=== PATIENT | male | born 1940 | race Two or more races ===

== ENCOUNTER → 2024-11-05 | Outpatient (CLI) | payer BC ==
[2024-11-05 07:58] LABS: Urine Bacteria None Seen /hpf (None Seen)
[2024-11-05 08:02] LABS: Hematocrit 42.6 % (41.0-53.0); Hemoglobin 14.4 g/dL (13.5-17.5); Mean Corpuscular Hgb Conc. 33.8 g/dL (32.0-36.0); Mean Corpuscular Volume 91.7 fL (80.0-100.0); Platelet Count (auto) 129 10^3/uL (140-450); Red Blood Cells 4.65 10^6/uL (4.5-5.90); Red Cell Distribution Width 15.3 % (11.8-14.3)
[2024-11-05 08:12] LABS: Basophils % (manual) 0 (0.0-2.0); Blast Cells 0; Metamyelocytes % 0; Promyelocytes % 0; Reactive Lymphocytes 0
[2024-11-05 08:31] LABS: Urine Blood Negative /uL (Negative); Urine Clarity Clear (Clear); Urine Color Light-Yellow (Yellow); Urine Protein, UAD Negative (Negative); Urine Squamous Epithelial Cell None Seen /hpf (<5); Urine Urobilinogen Normal (Negative); Urine WBC < 1 /HPF (0-3)
[2024-11-05 08:49] LABS: Alanine Aminotransferase 36 U/L (7-40); Alkaline Phosphatase 79 U/L (46-116); Anion Gap 6 (5-15); BUN/Creatinine Ratio 25.3 (10.0-20.0); Blood Urea Nitrogen 22 mg/dL (9-23); Carbon Dioxide 26 mmol/L (20-31); Chloride 104 mmol/L (98-107); Potassium 4.7 mmol/L (3.5-5.1); Sodium 136 mmol/L (136-145)
[2024-11-05 08:50] LABS: Albumin 4.4 g/dL (3.2-4.8); Aspartate Aminotransferase 27 U/L (13-40); Bilirubin, Total 0.5 mg/dL (0.2-1.0); Total Protein 6.6 g/dL (5.7-8.2)
[2024-11-05 08:59] LABS: Glucose 152 mg/dL (74-106)
[2024-11-05 11:22] LABS: Band Neutrophils % (manual) 3; Eosinophils % (manual) 5 (0-7); Lymphocytes % (manual) 9 (10.0-50.0); Monocytes % (manual) 2 (0-12); Myelocytes % 1; Platelet Estimate Adequate
[2024-11-06 12:54] LABS: Triglycerides 136 mg/dL (< 150)
[2024-11-06 12:55] LABS: Cholesterol 106 mg/dL (< 200); LDL Cholesterol 58 mg/dL (< 100)
[2024-11-06 12:57] LABS: HDL Cholesterol 29 mg/dL (40-59)
[2024-11-06 13:04] LABS: Creatinine, Urine 42.45 mg/dL (30.0-125.0)
== END | disposition home or self-care (01) ==
LOC: LAB 07:45
PROVIDERS: ATTEND Internal Medicine
DX: E11.9 Type 2 diabetes mellitus without complications (principal); E78.5 Hyperlipidemia, unspecified; E03.9 Hypothyroidism, unspecified
CPT/HCPCS: 36415; 80053; 80061; 81001; 82043; 82570; 83036; 84443; 85007; 85027

== ENCOUNTER 2024-11-28 18:32 | Inpatient (IN) | payer BC ==
[~2024-11-28] VITALS: Ht 182.9 cm; Wt 55.9 kg
--- NOTE | 2024-11-28 18:50 | ED.PDOC ---
HPI (NEURO) HPI Comments 84y M who presents to the ED via EMS for chief complaint of generalized weakness. Per EMS, pt lives with spouse who states pt has been acting not like himself all day. Pt has memory lapses and has been forgetting to set the time to kitchen stove today and states last time patient started to act this way, pt had infection and called EMS. EMS on scene noted, pt had temp of 100.3F with noted 02 sat of 92 % and noted tachycardia. Pt was given IV fluids and placed on 02 and brought to the ED. EMS states pt is ax0x3 and not oriented to year but otherwise able to answer all questions. Pt states in the ED, he feel nauseous with noted shortness of breath but otherwise denies vomiting, diarrhea, fever, cough, chills, dysuria, chest pain or shortness of breath. Pt otherwise denies any other symptoms at this time. Time Seen by MD: 18:46 Reviewed Notes: Nurses Notes, Pouncer Notes, Medications, Allergies (No allergies to medications) Information Source: Patient, Emergency Med Personnel Mode of Arrival: EMS Brought in by: EMS Severity: Moderate Dizziness/Weakness Severity: Does not affect activitie Headache Severity: Moderate, None Timing: Hours Duration: Since onset Prehospital treatment: IVF, Oxygen Onset: At rest Circumstances: Spontaneous Symptoms: Weakness, None History of: CVA, DM, Hypertension Modifying factors: Nothing Associated Signs and Symptoms: Nausea, Weakness Past Medical History PAST MEDICAL HISTORY: Asthma, CVA, DM, HTN Surgical History: Cholecystectomy, Hernia Repair Family History Family History: Reviewed,noncontributory to illness Social History Smoker: Non-Smoker Alcohol: Denies ETOH Use Drugs: Denies Drug Use Lives In: Home Constitutional: denies: chills, diaphoresis, fatigue, fever, malaise, sweats, weakness, others EENTM: denies: blurred vision, double vision, ear bleeding, ear discharge, ear drainage, ear pain, ear ringing, eye pain, eye redness, hearing loss, mouth pain, mouth swelling, nasal discharge, nose bleeding, nose congestion, nose pain, photophobia, tearing, throat pain, throat swelling, voice changes, others Respiratory: denies: cough, hemoptysis, orthopnea, SOB at rest, shortness of b reath, SOB with excertion, stridor, wheezing, others Cardiovascular: denies: chest pain, dizzy spells, diaphoresis, Dyspnea on exertion, edema, irregular heart beat, left arm pain, lightheadedness, palpitations, PND, syncope, others Gastrointestinal: reports: nausea; denies: abdomen distended, abdominal pain, blood streaked bowels, constipated, diarrhea, dysphagia, difficulty swallowing, hematemesis, melena, poor appetite, poor fluid intake, rectal bleeding, rectal pain, vomiting, others Genitourinary: denies: burning, dysuria, flank pain, frequency, hematuria, incontinence, penile discharge, penile sore, pain, testicle pain, testicle swelling, urgency, others Neurological: reports: weakness; denies: dizziness, fainting, headache, left sided numbness, left sided weakness, numbness, paresthesia, pre-existing deficit, right sided numbness, right sided weakness, seizure, speech problems, tingling, tremors, others Musculoskeletal: denies: back pain, gout, joint pain, joint swelling, muscle pain, muscle stiffness, neck pain, others Integumetry: denies: bruises, change in color, change in hair/nails, dryness, laceration, lesions, lumps, rash, wounds, others Allergic/Immunocompromised: denies: Difficulty Healing, Frequent Infections, Hives, Itching, others Hematologic/Lymphatic: denies: anemia, blood clots, easy bleeding, easy bruising, swollen glands, others Endocrine: denies: excessive hunger, excessive sweating, excessive thirst, excessive urination, flushing, intolerance to cold, intolerance to heat, unexplained weight gain, unexplained weight loss, others Psychiatric: denies: anxiety, bipolar disorder, depression, hopeless, panic di sorder, schizophrenia, sleepless, suicidal, others All Other Systems: Reviewed and Negative Physical Exam General Appearance: Moderate Distress HEENT: Normal ENT Inspection, Pharynx Normal, TMs Normal Neck: Full Range of Motion, Non-Tender, Normal, Normal Inspection Respiratory: Chest Non-Tender, Lungs Clear, No Accessory Muscle Use, No Respiratory Distress, Normal Breath Sounds Cardiovascular: No Edema, No JVD, No Murmur, No Gallop, Normal Peripheral Pulses, Regular Rate/Rhythm Breast Exam: Deferred Gastrointestinal: No Organomegaly, Non Tender, No Pulsatile Mass, Normal Bowel Sounds, Soft Genitalia: Deferred Pelvic: Deferred Rectal: Deferred Extremities: No calf tenderness, Normal capillary refill, Normal inspection, Normal range of motion, Non-tender, No pedal edema Musculoskeletal : Apperance: Normal Neurologic: development technical lead II-XII nml as Tested, Motor Weakness, No Sensory Deficits, Other (The patient was confused) Cerebellar Function: Normal Reflexes: Normal Skin: Dry, Normal Color, Warm Lymphatic: No Adenopathy EKG EKG : Pulse Rate (adult): 98 [place]: Normal Cardiac Rhythm: NSR Block: LBBB Hypertrophy: None ST: Normal Was a procedure done? Was a procedure done?: No Differential Diagnosis (SZ) Seizure: N/A General Weakness: Anemia, CVA, Dehydration, Electrolyte imbalance, Encephalopathy, Hypotension, Hypovolemia, TIA, Other (PNA, sepsis, UTI, ) X-Ray, Labs, Meds, VS Vital Signs Date Time Temp Pulse Resp B/P (MAP) Pulse Ox O2 Delivery O2 Flow Rate FiO2 11/28/24 19:05 98 11/28/24 19:03 98 11/28/24 18:40 100.3 92 20 120/58 (78) 98 Lab Test 11/28/24 20:30 11/28/24 18:40 Range/Units Urine Color Yellow Yellow Urine Clarity Clear Clear Urine pH 5.0 5.0-9.0 Urine Specific [place] 1.022 1.001-1.035 Urine Protein 1+ H Negative Urine Ketones Trace Negative Urine Blood Negative Negative /uL Urine Nitrite Negative Negative Urine Bilirubin Negative Negative Urine Urobilinogen Normal Negative mg/dL Urine Leukocyte Esterase Negative Negative /uL Urine RBC 1 0 - 3 /hpf Urine Microscopic WBC 3 0-3 /HPF Urine Squamous Epithelial Cells None seen <5 /hpf Urine Bacteria None seen None Seen /hpf Urine Hyaline Casts Mod 0 - 2 /lpf Urine Glucose Normal Normal mg/dL White Blood Count 21.4 H 4.4-10.8 10^3/uL Red Blood Count 4.45 L 4.5-5.90 10^6/uL Hemoglobin 13.8 13.5-17.5 g/dL Hematocrit 41.3 41.0-53.0 % Mean Corpuscular Volume 92.9 80.0-100.0 fL Mean Corpuscular Hemoglobin 31.1 28.0-32.0 pg Mean Corpuscular Hemoglobin Concent 33.4 32.0-36.0 g/dL Red Cell Distribution Width 14.8 H 11.8-14.3 % Platelet Count 138 L 140-450 10^3/uL Mean Platelet Volume 7.8 6.9-10.8 fL Neutrophils (%) (Auto) 82.9 H 37.0-80.0 % Lymphocytes (%) (Auto) 7.7 L 10.0-50.0 % Monocytes (%) (Auto) 8.9 0.0-12.0 % Eosinophils (%) (Auto) 0.1 0.0-7.0 % Basophils (%) (Auto) 0.4 0.0-2.0 % Neutrophils # (Auto) 17.8 H 1.6-8.6 10 ^3/uL Lymphocytes # (Auto) 1.7 0.4-5.4 10 ^3/uL Monocytes # (Auto) 1.9 H 0-1.3 10 ^3/uL Eosinophils # (Auto) 0 0-0.8 10 ^3/uL Basophils # (Auto) 0.1 0-0.2 10 ^3/uL Nucleated Red Blood Cells 0.1 % Sodium Level 134 L 136-145 mmol/L Potassium Level 4.2 3.5-5.1 mmol/L Chloride Level 100 98-107 mmol/L Carbon Dioxide Level 27 20-31 mmol/L Anion Gap 7 5-15 Blood Urea Nitrogen 32 H 9-23 mg/dL Creatinine 1.33 H 0.700-1.30 mg/dL Glomerular Filtration Rate Calc 52 >90 mL/min BUN/Creatinine Ratio 24.1 H 10.0-20.0 Serum Glucose 186 H 74-106 mg/dL Lactic Acid Level 1.7 0.4-2.0 mmol/L Calcium Level 9.5 8.7-10.4 mg/dL CHEST RADIOGRAPH IMPRESSION: Left basilar atelectasis . otherwise , no evidence for acute cardiopulmonary disease. The urine test is positive for mild infection. The patient's CBC shows an elevated white blood cell count of 21.4 The rest of the CBC is within normal limits The BUN is 32 and the creatinine is 1.33 The lactic acid is within normal limits The patient was being admitted to the hospitalist The patient understands and agrees with the management. Images Reviewed?: Images reviewed and evaluated by me Time of 1ST Reevaluation: 19:15 Reevaluation 1ST: Unchanged Patient Education/Counseling: Diagnosis, Treatment, Prognosis Family Education/Counseling: Diagnosis, Treatment, Prognosis Departure 1 Departure Time of Disposition: 21:03 Impression: Primary Impression: Autonomic dysfunction Additional Impressions: Fever Qualified Codes: R50.9 - Fever, unspecified Generalized weakness Confusion Disposition: ADMITTED INPATIENT Admit to: Tele Condition: Fair Critical Care Note Critical Care Time?: No Stability Stability form required: Yes Unstable for transfer: Telemetry monitoring (Telemetry monitoring required), ED Physician Assesment (Clinical assesment) Heart Score Heart Score: Heart Score Response (Comments) Value History N/A 0 EKG N/A 0 Age N/A 0 Risk Factors N/A 0 Troponin N/A 0 Total 0 I personally scribed for BAYRON ANDERSON MD (LAILA) on 11/28/24 at 18:50. Electronically submitted by Yaneth Hearn ([email or web address]). I personally scribed for BAYRON ANDERSON MD (LAILA) on 11/28/24 at 19:05. Electronically submitted by Yaneth Hearn ([email or web address]). I personally scribed for BAYRON ANDERSON MD (LAILA) on 11/28/24 at 19:50. Elec tronically submitted by Yaneth Hearn (HUSSEIN). BAYRON ANDERSON MD Nov 28, 2024 18:50
--- NOTE | 2024-11-28 19:09 | DVH ---
CHEST RADIOGRAPH Indication: sob Technique: Single frontal view of the chest was obtained Comparison: None FINDINGS: Lines and Tubes: None Lungs: No focal consolidation. Left basilar linear density. Pleura: No effusion. No pneumothorax. Cardiomediastinal contours: Unremarkable Bones: No acute osseous abnormality. IMPRESSION: Left basilar atelectasis . otherwise , no evidence for acute cardiopulmonary disease.
[2024-11-28 19:17] LABS: Basophils # (auto) 0.1 10 ^3/uL (0-0.2); Basophils % (auto) 0.4 % (0.0-2.0); Eosinophils # (auto) 0 10 ^3/uL (0-0.8); Eosinophils % (auto) 0.1 % (0.0-7.0); Hematocrit 41.3 % (41.0-53.0); Hemoglobin 13.8 g/dL (13.5-17.5); Lymphocytes # (auto) 1.7 10 ^3/uL (0.4-5.4); Lymphocytes % (auto) 7.7 % (10.0-50.0); Mean Corpuscular Hemoglobin 31.1 pg (28.0-32.0); Mean Corpuscular Hgb Conc. 33.4 g/dL (32.0-36.0); Mean Corpuscular Volume 92.9 fL (80.0-100.0); Monocytes # (auto) 1.9 10 ^3/uL (0-1.3); Monocytes % (auto) 8.9 % (0.0-12.0); Neutrophils # (auto) 17.8 10 ^3/uL (1.6-8.6); Neutrophils % (auto) 82.9 % (37.0-80.0); Nucleated Red Blood Cells % 0.1 %; Platelet Count (auto) 138 10^3/uL (140-450); Red Blood Cells 4.45 10^6/uL (4.5-5.90); Red Cell Distribution Width 14.8 % (11.8-14.3); White Blood Cell 21.4 10^3/uL (4.4-10.8)
[2024-11-28 19:26] LABS: Chloride 100 mmol/L (98-107); Potassium 4.2 mmol/L (3.5-5.1)
[2024-11-28 19:27] LABS: Anion Gap 7 (5-15); Carbon Dioxide 27 mmol/L (20-31)
[2024-11-28 19:28] LABS: Calcium 9.5 mg/dL (8.7-10.4)
[2024-11-28 19:33] LABS: BUN/Creatinine Ratio 24.1 (10.0-20.0)
[2024-11-28 19:42] LABS: Blood Urea Nitrogen 32 mg/dL (9-23); Glucose 186 mg/dL (74-106); Sodium 134 mmol/L (136-145)
--- NOTE | 2024-11-28 19:42 | ECG ---
[facility] Test Date: 2024-11-28 Test Time: 19:03:31 Pat Name: VIC SUAREZ Department: er Room: 0222 Gender: M Bench Scientist: shala : 1940 Requested By: BAYRON ANDERSON Order Number: [id number] Reading MD: Vasu Garner Measurements Intervals [place] Rate: 98 P: 35 NH: 194 QRS: -25 QRSD: 122 T: 74 QT: 340 QTc: 435 Interpretive Statements Sinus rhythm Left bundle branch block Electronically Signed On 11-30-2024 18:01:59 PST by Vasu Garner Please click the below link to view image of tracing.
[2024-11-28 20:44] LABS: Urine Bacteria None Seen /hpf (None Seen)
[2024-11-28 20:55] LABS: Urine Blood Negative /uL (Negative); Urine Clarity Clear (Clear); Urine Color Yellow (Yellow); Urine Hyaline Cast MOD /lpf (0 - 2); Urine Protein, UAD 1+ (Negative); Urine Specific Gravity 1.022 (1.001-1.035); Urine Squamous Epithelial Cell None Seen /hpf (<5); Urine Urobilinogen Normal (Negative); Urine WBC 3 /HPF (0-3)
[2024-11-28] MEDS: cefTRIAXone 1GM/50ML D5W 50 ML IV ONE (21:47)
[2024-11-28] MEDS ORDERED: NITROGLYCERIN 0.4 MG SL TAB SL PRN (22:15)
[2024-11-28] MEDS ORDERED: MORPHINE SULFATE INJ 2 MG/ml SYRG IV PRN (22:15)
[2024-11-28] MEDS ORDERED: ACETAMINOPHEN 325 MG TAB PO PRN (22:15)
[2024-11-28] MEDS: SODIUM CHLORIDE 0.9% 1,000 ML IV ONE (22:33)
[2024-11-28] MEDS: VANCOMYCIN 1GM/250ML KIT 250 ML IV ONE (22:35)
[2024-11-28 22:39] LABS: Blood Alcohol < 3.0 mg/dL (<10); Magnesium 1.5 mg/dL (1.6-2.6)
[2024-11-28 22:40] LABS: INR 1.31 (0.9-1.15); Partial Thromboplastin Time 36.1 SEC (24.5-34.5); Prothrombin Time 13.5 sec (9.3-11.8)
[2024-11-28] MEDS: SODIUM CHLORIDE 0.9% 1,000 ML IV SCH (23:09)
[2024-11-28 23:12] LABS: Free T4 (Free Thyroxine) 0.94 ng/dL (0.89-1.76); T3 Total 0.6 ng/mL (0.60-1.81)
[2024-11-28 23:13] LABS: Amphetamine Screen, Urine Neg (NEGATIVE); Barbiturate Scree,Urine Neg (NEGATIVE); Benzodiazephine Screen, Urine Neg (NEGATIVE); Cannabinoid Screen, Urine Neg (NEGATIVE); Cocaine Screen, Urine Neg (NEGATIVE); Opiate Scree,Urine Neg (NEGATIVE); Phencyclidine Screen, Urine Neg (NEGATIVE)
--- NOTE | 2024-11-28 23:43 | DVHHPRES ---
History of Present Illness Resident Creating Document: JEFF HANDY RESIDENT History of Present Illness Guanaco Andrew is a 84-year-old male with a PMH of prostate cancer, asthma, type 2 DM, CVA, AFib, hypothyroidism, HTN presented to the ED with the chief complaints of altered level of consciousness. Patient reported 2 days ago after eating strawberries patient started having continuous vomiting without blood, next day they went to urgent care, diagnosed as gastroenteritis, given Zofran but today patient 5 observed that has been deteriorating cognitively and unable to perform daily tasks, memory issues, coordination problems and altered than usual which brought patient to visit ED. patient also reported he has been having shortness of breath today and reported he has been not taking diabetic medication for last 2 days. On my assessment patient denies fever, diarrhea, constipation, abdominal pain, chest pain, diaphoresis, mechanical fall, trauma and other acute associated symptoms. PMH: prostate cancer, asthma, type 2 DM, CVA, AFib, hypothyroidism, HTN PSH: Prostate cancer surgery, cataract Family history: Reviewed, noncontributory Social history: Lives with family. Denies smoking, alcohol and other drug abuse Allergies: No known allergies Home medications: Levothyroxine 50 mcg, Eliquis 5 mg b.i.d., metformin 1000 mg b.i.d., losartan 25 mg OD, diltiazem ER 180 mg, atorvastatin 20 mg, imipramine 50 mg, montelukast 10 mg, Lantus 50 units, multivitamin, nebulizer and inhaler. Review of Systems Constitutional: Yes: Weakness Eyes: No: Pain, Vision change, Conjunctivae inflammation, Eyelid inflammation, Other, Redness ENT: No: Ear pain, Ear discharge, Nose pain, Nose discharge, Nose congestion, Mouth pain, Mouth swelling, Throat pain, Throat swelling, Other Respiratory: Shortness of breath Cardiovascular: Lt Headedness Gastrointestinal: Nausea, Vomiting Genitourinary: No Dysuria, No Frequency, No Incontinence, No Hematuria, No Retention, No Other Musculoskeletal: No: other, neck pain, shoulder pain, arm pain, back pain, hand pain, leg pain, foot pain Neurological: Confusion Allergies: Coded Allergies: Shellfish Allergy (Verified Allergy, Unknown, 11/29/24) Medications Current Medications Medications Dose Ordered Sig/Hernando Route Start Time Stop Time Status Last Admin Dose Admin Sodium Chloride 10 ml Q8HR IV 11/29/24 06:00 Sodium Chloride 1,000 ml @ 60 mls/hr [id number] IV 11/28/24 22:15 Ondansetron HCl 4 mg Q4HP PRN IV 11/28/24 22:15 Enoxaparin Sodium 40 mg DAILY SC 11/29/24 10:00 Acetaminophen 650 mg Q6HP PRN PO 11/28/24 22:15 Morphine Sulfate 2 mg Q4HPRN PRN IV 11/28/24 22:15 Nitroglycerin 0.4 mg Q5MINP PRN SL 11/28/24 22:15 Morphine Sulfate 2 mg Q30M PRN IV 11/28/24 22:15 Pantoprazole Sodium 40 mg DAILY IV 11/28/24 23:45 UNV Exam Vital Signs Vital Signs Date Time Temp Pulse Resp B/P (MAP) Pulse Ox O2 Delivery O2 Flow Rate FiO2 11/28/24 22:30 98.6 92 18 133/52 (79) 94 98.6 Exam Pt is lying on bed General Appearance: Alert, Oriented X3, Cooperative, Not in acute distress HEENT: Atraumatic, Mucous membranes moist/pink Respiratory: Clear to auscultation, Normal air movement, No added sounds Cardiovascular: Regular rate, Normal S1, Normal S2, No murmurs Abdominal: Active bowel sounds, Soft, no distention, no tenderness Extremities: Trace BLE edema, Normal pulses, No tenderness/swelling Skin: No Significant rash, except small lesion on left lower leg Neuro: Normal speech, sensorimotor deficits none Psych/Mental Status: Mental status NL, Mood NL Nurse was there as sharperone during examination Labs/Xrays Labs Test 11/28/24 22:20 11/28/24 21:52 11/28/24 20:30 11/28/24 20:20 Range/Units Lactic Acid Level 1.2 0.4-2.0 mmol/L Ammonia < 10 L 11-32 umol/L Thyroid Stimulating Hormone (TSH) 3.25 0.55-4.78 uIU/mL POC Glucose 172 H 70-106 mg/dl Urine Color Yellow Yellow Urine Clarity Clear Clear Urine pH 5.0 5.0-9.0 Urine Specific [place] 1.022 1.001-1.035 Urine Protein 1+ H Negative Urine Ketones Trace Negative Urine Blood Negative Negative /uL Urine Nitrite Negative Negative Urine Bilirubin Negative Negative Urine Urobilinogen Normal Negative mg/dL Urine Leukocyte Esterase Negative Negative /uL Urine RBC 1 0 - 3 /hpf Urine Microscopic WBC 3 0-3 /HPF Urine Squamous Epithelial Cells None seen <5 /hpf Urine Bacteria None seen None Seen /hpf Urine Hyaline Casts Mod 0 - 2 /lpf Urine Glucose Normal Normal mg/dL Urine Opiates Screen Neg NEGATIVE Urine Fentanyl Screen Neg NEGATIVE Urine Barbiturates Screen Neg NEGATIVE Urine Phencyclidine Screen Neg NEGATIVE Urine Amphetamines Screen Neg NEGATIVE Urine Benzodiazepines Screen Neg NEGATIVE Urine Cocaine Screen Neg NEGATIVE Urine Cannabinoids Screen Neg NEGATIVE Free Thyroxine (T4) Calculated 0.94 0.89-1.76 ng/dL Total Triiodothyronine (TT3) 0.60 0.60-1.81 ng/mL Test 11/28/24 18:53 11/28/24 18:40 Range/Units Prothrombin Time 13.5 H 9.3-11.8 sec Prothrombin Time INR 1.31 H 0.9-1.15 Activated Partial Thromboplast Time 36.1 H 24.5-34.5 SEC Magnesium Level 1.5 L 1.6-2.6 mg/dL Troponin I High Sensitivity 6 </=54 ng/L B-Type Natriuretic Peptide 23.48 0-100 pg/mL Plasma/Serum Blood Alcohol < 3.0 <10 mg/dL White Blood Count 21.4 H 4.4-10.8 10^3/uL Red Blood Count 4.45 L 4.5-5.90 10^6/uL Hemoglobin 13.8 13.5-17.5 g/dL Hematocrit 41.3 41.0-53.0 % Mean Corpuscular Volume 92.9 80.0-100.0 fL Mean Corpuscular Hemoglobin 31.1 28.0-32.0 pg Mean Corpuscular Hemoglobin Concent 33.4 32.0-36.0 g/dL Red Cell Distribution Width 14.8 H 11.8-14.3 % Platelet Count 138 L 140-450 10^3/uL Mean Platelet Volume 7.8 6.9-10.8 fL Neutrophils (%) (Auto) 82.9 H 37.0-80.0 % Lymphocytes (%) (Auto) 7.7 L 10.0-50.0 % Monocytes (%) (Auto) 8.9 0.0-12.0 % Eosinophils (%) (Auto) 0.1 0.0-7.0 % Basophils (%) (Auto) 0.4 0.0-2.0 % Neutrophils # (Auto) 17.8 H 1.6-8.6 10 ^3/uL Lymphocytes # (Auto) 1.7 0.4-5.4 10 ^3/uL Monocytes # (Auto) 1.9 H 0-1.3 10 ^3/uL Eosinophils # (Auto) 0 0-0.8 10 ^3/uL Basophils # (Auto) 0.1 0-0.2 10 ^3/uL Nucleated Red Blood Cells 0.1 % Sodium Level 134 L 136-145 mmol/L Potassium Level 4.2 3.5-5.1 mmol/L Chloride Level 100 98-107 mmol/L Carbon Dioxide Level 27 20-31 mmol/L Anion Gap 7 5-15 Blood Urea Nitrogen 32 H 9-23 mg/dL Creatinine 1.33 H 0.700-1.30 mg/dL Glomerular Filtration Rate Calc 52 >90 mL/min BUN/Creatinine Ratio 24.1 H 10.0-20.0 Serum Glucose 186 H 74-106 mg/dL Calcium Level 9.5 8.7-10.4 mg/dL Assessment/Plan Assessment/Plan # ? Acute toxic or metabolic encephalopathy likely due to sepsis # ? Sepsis # possible gastroenteritis -elevated WBC -continuously monitored lab -ordered pancultures -currently giving Rocephin -IVF, Zofran and Protonix -ordered a CT abdominal pelvis # AFib with secondary hypercoagulable state -currently normal sinus rhythm -resumed home meds -Eliquis 5 mg b.i.d. -monitor platelets # hypothyroidism -levothyroxine 50 mcg # hyperlipidemia -Lipitor 20 mg # uncontrolled type 2 DM -Accu-Cheks and mild ISS # FABIÁN likely vasomotor -monitor lab for now -giving IVF # hypomagnesemia -currently giving magnesium rider # thrombocytopenia -monitor lab for now Protonix Eliquis Cardiac diet Goals of care discussed with the patient for more than 27 minutes: Full code status Case discussed with Dr. Smith, patient and nurse Plan discussed with: Patient, Spouse My Orders Orders - JEFF AHNDY RESIDENT Procedure Category Date Status Time Admit ADMIT 11/28/24 Transmitted 22:08 Allergies JEROMY 11/28/24 In Process 22:08 Code Status CODE 11/28/24 Transmitted 22:08 Sodium Chloride Lock PHA 11/29/24 In Process (Saline Lock Ns) 06:00 Sodium Chloride 0.9% PHA 11/28/24 In Process 22:15 Ondansetron Hcl PHA 11/28/24 In Process (Zofran) 22:15 Enoxaparin Sodium PHA 11/29/24 In Process (Lovenox) 10:00 Complete Blood Count LAB 11/29/24 Verified 04:00 Comprehensive LAB 11/29/24 Verified Metabolic Panel 04:00 Echo 2d Mode Cardiac US 11/28/24 Logged DOP 22:08 Condition: Stable JEROMY 11/28/24 In Process 22:08 Acetaminophen Tablet PHA 11/28/24 In Process (Tylenol Tablet) 22:15 Clear Liq Diet DIET 11/29/24 Transmitted Breakfast Morphine Sulfate PHA 11/28/24 In Process Injection 22:15 Nitroglycerin PHA 11/28/24 In Process Sublingual (Ntrostat 22:15 Morphine Sulfate PHA 11/28/24 In Process Injection 22:15 Oxygen By Nasal RT 11/28/24 Transmitted Cannula 22:08 Stat Ekg For Chest JEROMY 11/28/24 In Process Pain 22:08 Notify Md Of Changes JEROMY 11/28/24 In Process From Base 22:08 Covid19 Antigen Treva LAB 11/28/24 Logged Rapid Influenza A&B LAB 11/28/24 Logged 22:08 Ct Ab Pel Wo Con-No CT 11/28/24 Logged Oral Or Iv 23:41 Pantoprazole PHA 11/28/24 Logged (Protonix) 23:45 Date of Service: Nov 28, 2024 Billing Provider: RAMON SMITH MD Common Visit Codes: 17210-[id number] INP/OBS CARE (HIGH) Secondary Visit Codes: 15606-[id number] CARE PLAN 30 MINUTES JEFF HANDY RESIDENT Nov 28, 2024 23:43 RAMON SMITH MD Nov 29, 2024 19:46
[2024-11-29] VITALS (13 sets, daily range): BP systolic 122–136; BP diastolic 51–64; PULSE 89–96; RESP 16–22; TEMP 97.8–98.6; O2SAT 18–99
[2024-11-29] MEDS ORDERED: DEXTROSE (50%) 50ML SYRG IV PRN (00:15)
[2024-11-29] MEDS: APIXABAN 5 MG TAB PO SCH (00:30)
[2024-11-29] MEDS: PANTOPRAZOLE 40 MG/10 ML VIAL INJ IV SCH (00:31)
--- NOTE | 2024-11-29 01:20 | DVH ---
Exam: CT CT AB PEL WO CON-NO ORAL OR IV History: Possible enteritis Comparison Study: None Technique: Multidetector spiral CT of the abdomen was performed from lung bases to pubic symphysis. Imaging was performed without IV contrast. Axial, coronal and sagittal multiplanar reformats were ob tained from the axial data set by the technologist. Radiation Dose : 1. Abdomen/Pelvis: CTDIvol mGy, DLP mGy*cm. Findings: Evaluation of solid organs is limited due to lack of intravenous contrast use. Lung Bases: Very mild bibasilar subsegmental atelectasis. No pleural or pericardial effusion. Liver: Liver is normal in size. No focal lesions noted. Gallbladder and Biliary Tree: Possible mild fluid/stranding around the gallbladder. Recommend clinica l correlation for cholecystitis. No evidence of biliary ductal dilatation. Spleen: No abnormality demonstrated Pancreas: Pancreas appears grossly unremarkable. Adrenal Glands: No abnormality demonstrated. Kidneys: There is considerable perinephric stranding around both kidneys greater on the right side. B ilateral renal cysts noted. Two nonobstructing calculi are noted in the lower pole of the right kidne y and one in the lower pole of the left kidney. No hydroureteronephrosis.. Bladder: Grossly unremarkable for degree of distention. Bowel: Stomach appears grossly unremarkable. No abnormally dilated or thick-walled loops of large or small bowel noted. Moderate amount of stool present in the large bowel. Appendix is not visualized; h owever, no secondary findings of acute appendicitis identified. Ascites: Small amount of nonspecific free fluid noted in the lower pelvis. Lymphadenopathy: No evidence of lymphadenopathy. Abdominal Wall and Mesentery: Unremarkable. Vasculature: Mild atherosclerotic changes in abdominal aorta and iliac arteries without aneurysmal di latation. Pelvic Organs: Unremarkable. S/p prostatectomy. Musculoskeletal: No bony lesions or fracture. 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 Mild lumbar spondylosis with mild spinal canal narrowing. IMPRESSION: Possible mild fluid/stranding around the gallbladder. Recommend clinical correlation and ultrasound m ay be obtained to evaluate for cholecystitis. Considerable perinephric stranding around both kidneys greater on the right side. No hydroureteroneph rosis. Nonobstructing renal calculi. Recommend correlation with clinical information and urinalysis t o assess for pyelonephritis. Radiation optimization: All CT scans at this facility use at least one of these dose optimization marvin hniques: automated exposure control mA and/or kV adjustment per patient size (includes targeted exam s where dose is matched to clinical indication) or iterative reconstruction.
[2024-11-29] MEDS: MAGNESIUM SULFATE 1GM/100ML 100 ML IV SCH (01:25)
[2024-11-29 01:26] LABS: COVID19 ANTIGEN SOFIA FIA NEGATIVE (NEGATIVE); Rapid Influenza A Negative (Negative); Rapid Influenza B Negative (Negative)
[2024-11-29] MEDS: SODIUM CHLOR 0.9% PF (SALINE LOCK) 10ML VIAL/SYR IV SCH (06:00)
[2024-11-29] MEDS: LEVOTHYROXINE SODIUM 50 MCG TAB PO SCH (06:00)
[2024-11-29] MEDS: ACCU-CHEK COMFORT CURVE STRIP VI SCH (06:42)
[2024-11-29] MEDS: InsuLIN REG 1unit/0.01ml Soln (100units/ml) SC SCH (06:46)
[2024-11-29 07:38] LABS: Basophils # (auto) 0 10 ^3/uL (0-0.2); Basophils % (auto) 0.2 % (0.0-2.0); Eosinophils # (auto) 0 10 ^3/uL (0-0.8); Hematocrit 39.7 % (41.0-53.0); Hemoglobin 13.6 g/dL (13.5-17.5); Lymphocytes # (auto) 1.1 10 ^3/uL (0.4-5.4); Lymphocytes % (auto) 5.3 % (10.0-50.0); Mean Corpuscular Hgb Conc. 34.2 g/dL (32.0-36.0); Mean Corpuscular Volume 90.5 fL (80.0-100.0); Monocytes # (auto) 1.4 10 ^3/uL (0-1.3); Monocytes % (auto) 6.6 % (0.0-12.0); Neutrophils % (auto) 87.9 % (37.0-80.0); Nucleated Red Blood Cells % 0.1 %; Platelet Count (auto) 133 10^3/uL (140-450); Red Blood Cells 4.38 10^6/uL (4.5-5.90); White Blood Cell 20.5 10^3/uL (4.4-10.8)
[2024-11-29 08:14] LABS: Albumin 4.2 g/dL (3.2-4.8); Alkaline Phosphatase 72 U/L (46-116); Anion Gap 5 (5-15); Aspartate Aminotransferase 27 U/L (13-40); BUN/Creatinine Ratio 28.4 (10.0-20.0); Calcium 9.1 mg/dL (8.7-10.4); Carbon Dioxide 25 mmol/L (20-31); Chloride 104 mmol/L (98-107); Potassium 4.1 mmol/L (3.5-5.1); Total Protein 6.6 g/dL (5.7-8.2)
[2024-11-29 08:15] LABS: Alanine Aminotransferase 45 U/L (7-40); Bilirubin, Total 1.1 mg/dL (0.2-1.0); Blood Urea Nitrogen 27 mg/dL (9-23); Glucose 186 mg/dL (74-106); Sodium 134 mmol/L (136-145)
--- NOTE | 2024-11-29 09:37 | MEDREC ---
[facility] Intervention Section I [facility] Intervention: Review courses of therapy (PATIENT HAD FEVER YESTERDAY 11/28. HIS WBC IS ELEVATED FOR 2 DAYS. PLEASE CONSIDER ESCALATING ANTIBIOTICS TO BROAD SPECTRUM DUE TO HIS CURRENT CONDITIONS AND IMMUNOCOMPROMISED STATUS (PROSTATE CANCER)) SAUNDRA ROSE Nov 29, 2024 09:37
[2024-11-29] MEDS ORDERED: ENOXAPARIN SOD 40 MG/0.4 ML SYRINGE SC SCH (10:00)
[2024-11-29] MEDS ORDERED: ATOR20TA50 PO (10:26)
[2024-11-29] MEDS ORDERED: CHOL20007 PO (10:26)
[2024-11-29] MEDS ORDERED: APIX5TAB PO (10:26)
[2024-11-29] MEDS ORDERED: METF-370 PO (10:26)
[2024-11-29] MEDS ORDERED: INSLANTI SC (10:26)
[2024-11-29] MEDS ORDERED: FLUT0.05 NAS (10:26)
[2024-11-29] MEDS ORDERED: ASCO500T11 PO (10:26)
[2024-11-29] MEDS ORDERED: LEVO50TA7 PO (10:26)
[2024-11-29] MEDS ORDERED: MONT-8 PO (10:26)
[2024-11-29] MEDS ORDERED: VITA400T4 PO (10:26)
[2024-11-29] MEDS ORDERED: IMIP50TA PO (10:26)
[2024-11-29] MEDS ORDERED: LOSA-533 PO (10:26)
[2024-11-29] MEDS ORDERED: DILT60TA PO (10:26)
[2024-11-29] MEDS ORDERED: ALBU2TAB11 PO (10:26)
[2024-11-29] MEDS: dilTIAZem HCL 180MG ER CAP PO SCH (10:55)
--- NOTE | 2024-11-29 11:24 | DVHPN2 ---
Subjective Seen at bedside. Spouse at bedside. Patient has been confused for 1-2 days. Explained findings to the patients spouse and nephew. Changes from previous H/P or p: No Changes Eyes: No Pain, No Vision change, No Conjunctivae inflammation, No Eyelid inflammation, No Other, No Redness ENT: No Ear pain, No Ear discharge, No Nose pain, No Nose discharge, No Nose congestion, No Mouth pain, No Mouth swelling, No Throat pain, No Throat swelling, No Other Cardiovascular: No Chest Pain, No Palpitations, No Orthopnea, No Paroxysmal Noc. Dyspnea, No Edema, No Lt Headedness, No Other Respiratory: No Cough, No Dry, No Shortness of breath, No SOB with excertion, No Wheezing, No Hemoptysis, No Pleuritic Pain, No Sputum, No Other Gastrointestinal: No Nausea, No Vomiting, No Abdominal Pain, No Diarrhea, No Constipation, No Melena, No Hematochezia, No Other Genitourinary: No Dysuria, No Frequency, No Incontinence, No Hematuria, No Retention, No Other Musculoskeletal: No other, No neck pain, No shoulder pain, No arm pain, No back pain, No hand pain, No leg pain, No foot pain Objective Vitals Vital Signs Date Time Temp Pulse Resp B/P (MAP) Pulse Ox O2 Delivery O2 Flow Rate FiO2 11/29/24 10:55 92 135/64 11/29/24 09:00 98.3 19 96 98.3 11/29/24 08:00 Nasal Cannula* 2 28 Intake/Output Intake and Output 11/29/24 07:00 Intake Total 200 ml Balance 200 ml Intake Oral 50 ml IV Total 150 ml # Voids 1 General Appearance: Alert, Oriented X3, Cooperative, mild distress HEENT: Atraumatic Lungs: Clear to auscultation Cardiovascular: Regular rate, Normal S1, Normal S2 Abdomen: Other (RUQ Tenderness) Back: Flank Tenderness Psych/Mental Status: Mental status NL Medications Current Medications Medications Dose Ordered Sig/Hernando Route Start Time Stop Time Status Last Admin Dose Admin Sodium Chloride 10 ml Q8HR IV 11/29/24 06:00 11/29/24 06:00 10 ML Sodium Chloride 1,000 ml @ 60 mls/hr [id number] IV 11/28/24 22:15 Ondansetron HCl 4 mg Q4HP PRN IV 11/28/24 22:15 Acetaminophen 650 mg Q6HP PRN PO 11/28/24 22:15 Morphine Sulfate 2 mg Q4HPRN PRN IV 11/28/24 22:15 Pantoprazole Sodium 40 mg DAILY IV 11/28/24 23:45 11/29/24 10:55 40 MG Ceftriaxone Sodium 50 ml @ 100 mls/hr DAILY@2200 IV 11/29/24 22:00 Apixaban 5 mg BID PO 11/29/24 00:15 11/29/24 10:54 5 MG Levothyroxine Sodium 50 mcg QAM@0600 PO 11/29/24 06:00 11/29/24 06:00 50 MCG Atorvastatin Calcium 20 mg HS PO 11/29/24 22:00 Diltiazem HCl 180 mg DAILY PO 11/29/24 10:00 11/29/24 10:55 180 MG Diagnostic Test (Pha) 1 strip ACHS 11/29/24 07:00 11/29/24 06:42 1 STRIP Insulin Human Regular ACHS SC 11/29/24 07:00 11/29/24 06:46 3 UNITS Dextrose 50 ml UD PRN IV 11/29/24 00:15 Laboratory Results Laboratory Tests 11/29/24 07:04 Chemistry Test 11/28/24 18:40 11/28/24 18:53 11/29/24 07:04 Calcium Level 9.5 mg/dL (8.7-10.4) 9.1 mg/dL (8.7-10.4) Magnesium Level 1.5 mg/dL (1.6-2.6) L Albumin 4.2 g/dL (3.2-4.8) Total Protein 6.6 g/dL (5.7-8.2) Coagulation Test 11/28/24 18:53 Prothrombin Time 13.5 sec (9.3-11.8) H Prothrombin Time INR 1.31 (0.9-1.15) H Activated Partial Thromboplast Time 36.1 SEC (24.5-34.5) H Cardiac Markers Test 11/28/24 18:53 B-Type Natriuretic Peptide 23.48 pg/mL (0-100) LFT Test 11/29/24 07:04 Alanine Aminotransferase (ALT) 45 U/L (7-40) H Alkaline Phosphatase 72 U/L (46-116) Aspartate Amino Transferase (AST) 27 U/L (13-40) Total Bilirubin 1.1 mg/dL (0.2-1.0) H HgA1c, TSH Test 11/28/24 22:20 Thyroid Stimulating Hormone (TSH) 3.25 uIU/mL (0.55-4.78) Urinalysis Test 11/28/24 20:30 Urine Color Yellow (Yellow) Urine Clarity Clear (Clear) Urine pH 5.0 (5.0-9.0) Urine Specific [place] 1.022 (1.001-1.035) Urine Protein 1+ (Negative) H Urine Ketones Trace (Negative) Urine Blood Negative /uL (Negative) Urine Nitrite Negative (Negative) Urine Bilirubin Negative (Negative) Urine Urobilinogen Normal mg/dL (Negative) Urine Leukocyte Esterase Negative /uL (Negative) Urine RBC 1 /hpf (0 - 3) Urine Microscopic WBC 3 /HPF (0-3) Urine Squamous Epithelial Cells None seen /hpf (<5) Urine Bacteria None seen /hpf (None Seen) Urine Hyaline Casts Mod /lpf (0 - 2) Urine Glucose Normal mg/dL (Normal) Assessment/Plan Assessment/Plan # Acute toxic or metabolic encephalopathy likely due to sepsis # Pyelonephritis with Acute Cholecystitis -Zosyn # AFib with secondary hypercoagulable state -currently normal sinus rhythm -resumed home meds -Eliquis 5 mg b.i.d. -monitor platelets # hypothyroidism -levothyroxine 50 mcg # hyperlipidemia -Lipitor 20 mg # uncontrolled type 2 DM A1c 6.0 -Accu-Cheks and mild ISS # FABIÁN likely vasomotor -monitor lab for now -giving IVF # hypomagnesemia -currently giving magnesium rider # thrombocytopenia -monitor lab for now Protonix Eliquis Cardiac diet Plan discussed with: Patient, Spouse Date of Service: Nov 29, 2024 Billing Provider: RAMON WEAVER MD Common Visit Codes: [id number] DISCH DAY >30min RAMON WEAVER MD Nov 29, 2024 11:24
[2024-11-29] MEDS: ALBUTEROL SULF 2.5 MG/0.5ML(0.5%) NEB SOLN NEB SCH (12:35)
[2024-11-29] MEDS: IPRATROPIUM BROM 0.5 MG/2.5ML INH SOL NEB SCH (12:35)
[2024-11-29] MEDS: PIPERACILLIN-TAZOB 3.375GM 100 ML IV SCH (12:42)
--- NOTE | 2024-11-29 12:58 | DVH ---
INDICATION: Pain, Acute Choley TECHNIQUE: Multiple real-time sonographic images were obtained of the right upper quadrant and left k idney. COMPARISON: 11/29/2024 FINDINGS: The liver demonstrates coarsened echotexture without focal mass lesions. The liver measures 18 cm. There is no intrahepatic or extrahepatic ductal dilatation. The common duct not well visuali zed due to obscuration from bowel gas. The gallbladder is without evidence of stone or sludge. The gallbladder wall measures 2 mm and is wi thin normal limits. The right kidney measures 12.6 cm. The right kidney is normal in contour, size, and shape. The echog enicity is normal. There is no hydronephrosis. Left kidney measures 12.9 cm. There is a left renal s tone measuring 0.4 cm. No hydronephrosis. Bilateral renal cysts measuring up to 4.8 cm. The pancreas is not well visualized due to overlying bowel gas. IMPRESSION: 1. Hepatic steatosis and mild hepatomegaly. Coarsened liver echotexture suggestive of chronic liver d isease. 2. No sonographic evidence of cholelithiasis. Trace nonspecific pericholecystic edema. Trace perihepa tic ascites. 3. Nonspecific destructive left renal stone measuring 0.4 cm.
--- NOTE | 2024-11-29 14:38 | DVHSR ---
APPROVED REPORT EXAM: Two-dimensional and M-mode echocardiogram with Doppler and color Doppler. Blood Pressure: 133/52 mmHg INDICATION R/O structural heart disease RISK FACTORS Height: 6', Weight: 206 DIMENSIONS LVDd5.3 (3.8-5.7cm)LA (2D)3.4 (1.9-4.0cm)Aortic Root3.7 (2.0-3.7cm) LVDs3.8 (2.5-4.0cm)LA (MM) (1.9-4.0cm)Aortic Cusp Exc0.7 (1.5-2.0cm) EF (%) 55.0 (55-70%)Rt. Atrium3.8 (1.9-4.0cm)Asc. Aorta4.0 cm IVSd0.9 (0.7-1.1cm)RV (D)3.9 (1.8-2.4cm) PWd0.8 (0.7-1.1cm) Mitral Valve MitralMitral Stenosis E wave0.62m/sMV Mean GR.mmHg A wave0.87m/sMV Peak GR.mmHg E/A ratio0.72D MVAcm2 DECEL [id number] 1/2 Tim[place] Aortic Valve Aortic ValveAortic Stenosis V10.92m/Virgil Mean GR.11mmHg V22.01m/Virgil Peak GR.16mmHg LVOT Diameter2.6 (1.8-2.4cm)Doppler AVA2.43cm2 2D AVA2.19cm2 Pulmonic Valve V20.94m/s Tricuspid Valve TR Velocity2.24m/s [id number] Conclusion lvef 55-60% by visual estimate normal rv function normal atria no severe valve abnormalities noted moderate aortic sclerosis
[2024-11-29] MEDS ORDERED: cefTRIAXone 1GM/50ML D5W 50 ML IV SCH (22:00)
[2024-11-29] MEDS: ATORVASTATIN 20 MG TAB PO SCH (22:15)
[2024-11-30] VITALS (14 sets, daily range): BP systolic 106–128; BP diastolic 46–60; PULSE 87–96; RESP 16–20; TEMP 98.1–100; O2SAT 91–100
[2024-11-30] MEDS: ALBUTEROL SULF 2.5 MG/0.5ML(0.5%) NEB SOLN NEB SCH (06:12)
[2024-11-30] MEDS: IPRATROPIUM BROM 0.5 MG/2.5ML INH SOL NEB SCH (06:12)
[2024-11-30 06:18] LABS: Basophils # (auto) 0.1 10 ^3/uL (0-0.2); Basophils % (auto) 0.3 % (0.0-2.0); Eosinophils # (auto) 0 10 ^3/uL (0-0.8); Eosinophils % (auto) 0.1 % (0.0-7.0); Hematocrit 38.1 % (41.0-53.0); Lymphocytes # (auto) 0.7 10 ^3/uL (0.4-5.4); Lymphocytes % (auto) 3.6 % (10.0-50.0); Mean Corpuscular Hemoglobin 31.4 pg (28.0-32.0); Mean Corpuscular Volume 92.3 fL (80.0-100.0); Monocytes % (auto) 5.3 % (0.0-12.0); Neutrophils # (auto) 16.8 10 ^3/uL (1.6-8.6); Neutrophils % (auto) 90.7 % (37.0-80.0); Platelet Count (auto) 130 10^3/uL (140-450); Red Blood Cells 4.13 10^6/uL (4.5-5.90); White Blood Cell 18.5 10^3/uL (4.4-10.8)
[2024-11-30 06:22] LABS: Anion Gap 7 (5-15); Carbon Dioxide 26 mmol/L (20-31); Chloride 104 mmol/L (98-107); Potassium 3.9 mmol/L (3.5-5.1); Sodium 137 mmol/L (136-145)
[2024-11-30 06:23] LABS: Calcium 9.2 mg/dL (8.7-10.4)
[2024-11-30 06:28] LABS: BUN/Creatinine Ratio 21.9 (10.0-20.0); Blood Urea Nitrogen 21 mg/dL (9-23)
[2024-11-30 06:30] LABS: Glucose 189 mg/dL (74-106)
[2024-11-30 11:13] LABS: Lipase 33 U/L (12-53)
[2024-11-30 11:14] LABS: Amylase 38 U/L (30-118)
[2024-11-30] MEDS: PIPERACILLIN-TAZOB 3.375GM 100 ML IV SCH ×2 (11:35→20:19)
[2024-11-30] MEDS: LOSARTAN POTASSIUM 25 MG TAB PO SCH (11:35)
[2024-11-30] MEDS: SODIUM CHLORIDE 0.9% 1,000 ML IV SCH (14:45)
--- NOTE | 2024-11-30 16:57 | DVHPN2 ---
Subjective Feels better. Answering questions better. Reviewed: Care Plan, H&P, Labs, Medications, Previous Orders, Radiology, Other Changes from previous H/P or p: No Changes Objective Vitals Vital Signs Date Time Temp Pulse Resp B/P (MAP) Pulse Ox O2 Delivery O2 Flow Rate FiO2 11/30/24 13:09 88 18 100 11/30/24 13:00 100.0 128/56 (80) 100.0 11/30/24 06:12 Nasal Cannula 2.0 11/30/24 06:12 28 Intake/Output Intake and Output 11/30/24 07:00 Intake Total 1670 ml Balance 1670 ml Intake Oral 1270 ml IV Total 400 ml # Voids 2 # Bowel Movements 1 General Appearance: Alert, Oriented X3, Cooperative HEENT: Atraumatic Lungs: Clear to auscultation Cardiovascular: Regular rate Abdomen: Other (Better right upper quadrant. Minimal tenderness at this time) Back: Flank Tenderness Psych/Mental Status: Mental status NL Medications Current Medications Medications Dose Ordered Sig/[place] Route Start Time Stop Time Status Last Admin Dose Admin Sodium Chloride 10 ml Q8HR IV 11/29/24 06:00 11/30/24 14:45 10 ML Ondansetron HCl 4 mg Q4HP PRN IV 11/28/24 22:15 Acetaminophen 650 mg Q6HP PRN PO 11/28/24 22:15 Morphine Sulfate 2 mg Q4HPRN PRN IV 11/28/24 22:15 Pantoprazole Sodium 40 mg DAILY IV 11/28/24 23:45 11/30/24 12:02 40 MG Apixaban 5 mg BID PO 11/29/24 00:15 11/30/24 11:35 5 MG Levothyroxine Sodium 50 mcg QAM@0600 PO 11/29/24 06:00 11/30/24 07:04 50 MCG Atorvastatin Calcium 20 mg HS PO 11/29/24 22:00 11/29/24 22:15 20 MG Diltiazem HCl 180 mg DAILY PO 11/29/24 10:00 11/30/24 11:36 180 MG Diagnostic Test (Pha) 1 strip ACHS 11/29/24 07:00 11/30/24 11:47 1 STRIP Insulin Human Regular ACHS SC 11/29/24 07:00 11/30/24 12:03 3 UNITS Dextrose 50 ml UD PRN IV 11/29/24 00:15 Losartan Potassium 25 mg DAILY PO 11/30/24 10:00 11/30/24 11:35 25 MG Albuterol 2.5 mg Q6HWA [facility] 11/30/24 06:00 11/30/24 13:03 2.5 MG Ipratropium [place] 0.5 mg Q6HWA [facility] 11/30/24 06:00 11/30/24 13:03 0.5 MG Sodium Chloride 1,000 ml @ 100 mls/hr Q10H IV 11/30/24 11:00 11/30/24 14:45 100 MLS/HR Piperacillin Sod/ Tazobactam Sod 100 ml @ 25 mls/hr Q8H IV 11/30/24 20:00 Laboratory Results Laboratory Tests 11/30/24 05:48 Chemistry Test 11/30/24 05:48 Calcium Level 9.2 mg/dL (8.7-10.4) Lipid panel Test 11/30/24 05:48 Lipase 33 U/L (12-53) Urinalysis Test 11/28/24 20:30 Urine Color Yellow (Yellow) Urine Clarity Clear (Clear) Urine pH 5.0 (5.0-9.0) Urine Specific [place] 1.022 (1.001-1.035) Urine Protein 1+ (Negative) H Urine Ketones Trace (Negative) Urine Blood Negative /uL (Negative) Urine Nitrite Negative (Negative) Urine Bilirubin Negative (Negative) Urine Urobilinogen Normal mg/dL (Negative) Urine Leukocyte Esterase Negative /uL (Negative) Urine RBC 1 /hpf (0 - 3) Urine Microscopic WBC 3 /HPF (0-3) Urine Squamous Epithelial Cells None seen /hpf (<5) Urine Bacteria None seen /hpf (None Seen) Urine Hyaline Casts Mod /lpf (0 - 2) Urine Glucose Normal mg/dL (Normal) Microbiology Microbiology Date/Time Source Procedure Growth Status 11/28/24 20:30 Voided Urine Urine Culture - Preliminary Resulted 11/28/24 18:53 Blood Blood Culture - Preliminary NO GROWTH AFTER 24 HOURS OF INCUBATION. Resulted Assessment/Plan Assessment/Plan Possible cholecystitis with septic encephalopathy Questionable pyelonephritis AFib Hypothyroidism Diabetes Dyslipidemia Acute kidney injury on top of chronic kidney disease stage 2/resolving Thrombocytopenia likely secondary to liver disease with the ultrasound abnormalities suggestive of chronic liver disease Bilateral renal cysts Bilateral kidney stones Plan: Increase IV fluids. Continue IV antibiotics. Cultures. HIDA scan. Further plan per orders Plan discussed with: Patient, Spouse My Orders Orders - CRISTHIAN GOINS MD Procedure Category Date Status Time Sodium Chloride 0.9% PHA 11/30/24 In Process 11:00 Nm Hida Scan NM 11/30/24 Logged 10:50 Comprehensive LAB 12/01/24 Verified Metabolic Panel 06:00 Complete Blood Count LAB 12/01/24 Verified 06:00 Chest Portable XY 12/01/24 Logged 06:00 Date of Service: Nov 30, 2024 Billing Provider: CRISTHIAN GOINS MD Common Visit Codes: [id number] INP/OBS CARE(HIGH) CRISTHIAN GOINS MD Nov 30, 2024 16:57
[2024-12-01] VITALS (12 sets, daily range): BP systolic 115–129; BP diastolic 42–54; PULSE 79–91; RESP 16–18; TEMP 97.8–99.5; O2SAT 88–100
--- NOTE | 2024-12-01 05:50 | DVH ---
CHEST RADIOGRAPH Indication: fu Technique: Single frontal view of the chest was obtained Comparison: XY CHEST PORTABLE on DOS: 11/28/24 IMPRESSION: Heart is stable in size. Patchy airspace opacity in the right lower lung. No sizable effusion or pne umothorax.
[2024-12-01 06:10] LABS: Basophils # (auto) 0 10 ^3/uL (0-0.2); Basophils % (auto) 0.3 % (0.0-2.0); Eosinophils # (auto) 0 10 ^3/uL (0-0.8); Eosinophils % (auto) 0.1 % (0.0-7.0); Hematocrit 32.7 % (41.0-53.0); Hemoglobin 11.5 g/dL (13.5-17.5); Lymphocytes # (auto) 0.8 10 ^3/uL (0.4-5.4); Lymphocytes % (auto) 6.1 % (10.0-50.0); Mean Corpuscular Hemoglobin 32.4 pg (28.0-32.0); Mean Corpuscular Volume 92.6 fL (80.0-100.0); Monocytes # (auto) 0.8 10 ^3/uL (0-1.3); Monocytes % (auto) 5.7 % (0.0-12.0); Neutrophils # (auto) 11.8 10 ^3/uL (1.6-8.6); Neutrophils % (auto) 87.8 % (37.0-80.0); Platelet Count (auto) 119 10^3/uL (140-450); Red Blood Cells 3.53 10^6/uL (4.5-5.90); Red Cell Distribution Width 14.6 % (11.8-14.3); White Blood Cell 13.4 10^3/uL (4.4-10.8)
[2024-12-01 06:22] LABS: Albumin 3.5 g/dL (3.2-4.8); Anion Gap 8 (5-15); BUN/Creatinine Ratio 21.4 (10.0-20.0); Blood Urea Nitrogen 18 mg/dL (9-23); Calcium 8.9 mg/dL (8.7-10.4); Carbon Dioxide 27 mmol/L (20-31); Chloride 104 mmol/L (98-107); Potassium 3.8 mmol/L (3.5-5.1); Sodium 139 mmol/L (136-145); Total Protein 5.8 g/dL (5.7-8.2)
[2024-12-01 06:36] LABS: Alanine Aminotransferase 247 U/L (7-40); Alkaline Phosphatase 232 U/L (46-116); Aspartate Aminotransferase 175 U/L (13-40); Bilirubin, Total 1.3 mg/dL (0.2-1.0); Glucose 173 mg/dL (74-106)
[2024-12-01 08:22] LABS: Amylase 40 U/L (30-118)
[2024-12-01 08:58] LABS: Lipase 33 U/L (12-53)
--- NOTE | 2024-12-01 12:25 | DVHINCON2 ---
Date of service: Dec 01, 2024 Family History: FH: cancer G8 FATHER Allergies: Coded Allergies: Shellfish Allergy (Verified Allergy, Unknown, 11/29/24) Home Meds Reported Medications Fluticasone Propionate (Fluticasone Propionate) 0.05 % Cre, 50 MCG SHEFALI for 30 Days, MCG 11/29/24 Albuterol Sulfate (Albuterol Sulfate) 2 Mg Tab, 2.5 MG PO Q4HR, MG 11/29/24 Insulin Glargine (Lantus) 100 Unit/Ml Inj, 50 UNIT SC, INJ 11/29/24 Ascorbic Acid (VITAMIN C TABLET) 500 Mg Tb, 1000 MG PO, TAB 11/29/24 Montelukast Sodium (MONTELUKAST SODIUM) 10 Mg Tab, 10 MG PO HS, TAB 11/29/24 Imipramine HCl (Imipramine Hydrochloride) 50 Mg Tab, 50 MG PO HS, TAB 11/29/24 Atorvastatin Calcium (ATORVASTATIN CALCIUM) 20 Mg Tab, 1 TAB PO DAILY, #30 TAB 5 Refills 11/29/24 Diltiazem Hcl (Diltiazem Hcl) 60 Mg Tab, 180 MG PO Q8HR for 30 Days, MG 11/29/24 Losartan Potassium (Losartan Potassium) 25 Mg Tab, 1 TAB PO DAILY, #90 TAB 1 Refill 11/29/24 Alpha Tocopheryl Acid Succinat (VITAMIN E) 400 Unit Tab, 400 UNIT PO DAILY, TAB 11/29/24 Cholecalciferol (VITAMIN D3) 2,000 Unit Tab, 1000 UNIT PO DAILY, TAB 11/29/24 Metformin Hydrochloride (Metformin Hcl) 500 Mg Tab, 1000 MG PO IBID for 30 Days, MG 11/29/24 Apixaban Base (ELIQUIS) 5 Mg Tab, 5 MG PO BID, TAB 11/29/24 Levothyroxine Sodium (Levothyroxine Sodium) 50 Mcg Tab, 50 MCG PO QAM for 30 Days, MCG 11/29/24 Current Medications Current Medications Medications (Trade) Dose Ordered Sig/Hernando Route PRN Reason Start Time Stop Time Status Last Admin Piperacillin Sod/ Tazobactam Sod 100 ml @ 25 mls/hr Q8H IV 11/30/24 20:00 12/01/24 11:40 Vital Signs Vital Signs Date Time Temp Pulse Resp B/P (MAP) Pulse Ox O2 Delivery O2 Flow Rate FiO2 12/01/24 09:52 95 12/01/24 09:40 87 129/49 12/01/24 08:58 97.8 16 97.8 12/01/24 06:05 Room Air* 0 21 Labs/Diagnostic Data Labs Test 12/01/24 11:10 12/01/24 05:16 11/29/24 00:47 11/28/24 22:20 Range/Units POC Glucose 206 H 70-106 mg/dl White Blood Count 13.4 #H 4.4-10.8 10^3/uL Red Blood Count 3.53 L 4.5-5.90 10^6/uL Hemoglobin 11.5 L 13.5-17.5 g/dL Hematocrit 32.7 #L 41.0-53.0 % Mean Corpuscular Volume 92.6 80.0-100.0 fL Mean Corpuscular Hemoglobin 32.4 H 28.0-32.0 pg Mean Corpuscular Hemoglobin Concent 35.0 32.0-36.0 g/dL Red Cell Distribution Width 14.6 H 11.8-14.3 % Platelet Count 119 L 140-450 10^3/uL Mean Platelet Volume 8.0 6.9-10.8 fL Neutrophils (%) (Auto) 87.8 H 37.0-80.0 % Lymphocytes (%) (Auto) 6.1 L 10.0-50.0 % Monocytes (%) (Auto) 5.7 0.0-12.0 % Eosinophils (%) (Auto) 0.1 0.0-7.0 % Basophils (%) (Auto) 0.3 0.0-2.0 % Neutrophils # (Auto) 11.8 H 1.6-8.6 10 ^3/uL Lymphocytes # (Auto) 0.8 0.4-5.4 10 ^3/uL Monocytes # (Auto) 0.8 0-1.3 10 ^3/uL Eosinophils # (Auto) 0 0-0.8 10 ^3/uL Basophils # (Auto) 0 0-0.2 10 ^3/uL Nucleated Red Blood Cells 0.0 % Sodium Level 139 136-145 mmol/L Potassium Level 3.8 3.5-5.1 mmol/L Chloride Level 104 98-107 mmol/L Carbon Dioxide Level 27 20-31 mmol/L Anion Gap 8 5-15 Blood Urea Nitrogen 18 9-23 mg/dL Creatinine 0.84 0.700-1.30 mg/dL Glomerular Filtration Rate Calc 85 >90 mL/min BUN/Creatinine Ratio 21.4 H 10.0-20.0 Serum Glucose 173 H 74-106 mg/dL Calcium Level 8.9 8.7-10.4 mg/dL Total Bilirubin 1.3 H 0.2-1.0 mg/dL Aspartate Amino Transferase (AST) 175 H 13-40 U/L Alanine Aminotransferase (ALT) 247 H 7-40 U/L Alkaline Phosphatase 232 H 46-116 U/L Total Protein 5.8 5.7-8.2 g/dL Albumin 3.5 3.2-4.8 g/dL Amylase Level 40 30-118 U/L Lipase 33 12-53 U/L Influenza Type A Antigen Negative Negative Influenza Type B Antigen Negative Negative SARS-CoV-2 Antigen (Rapid) Negative NEGATIVE Lactic Acid Level 1.2 0.4-2.0 mmol/L Ammonia < 10 L 11-32 umol/L Thyroid Stimulating Hormone (TSH) 3.25 0.55-4.78 uIU/mL Test 11/28/24 20:30 11/28/24 20:20 11/28/24 18:53 Range/Units Urine Color Yellow Yellow Urine Clarity Clear Clear Urine pH 5.0 5.0-9.0 Urine Specific [place] 1.022 1.001-1.035 Urine Protein 1+ H Negative Urine Ketones Trace Negative Urine Blood Negative Negative /uL Urine Nitrite Negative Negative Urine Bilirubin Negative Negative Urine Urobilinogen Normal Negative mg/dL Urine Leukocyte Esterase Negative Negative /uL Urine RBC 1 0 - 3 /hpf Urine Microscopic WBC 3 0-3 /HPF Urine Squamous Epithelial Cells None seen <5 /hpf Urine Bacteria None seen None Seen /hpf Urine Hyaline Casts Mod 0 - 2 /lpf Urine Glucose Normal Normal mg/dL Urine Opiates Screen Neg NEGATIVE Urine Fentanyl Screen Neg NEGATIVE Urine Barbiturates Screen Neg NEGATIVE Urine Phencyclidine Screen Neg NEGATIVE Urine Amphetamines Screen Neg NEGATIVE Urine Benzodiazepines Screen Neg NEGATIVE Urine Cocaine Screen Neg NEGATIVE Urine Cannabinoids Screen Neg NEGATIVE Free Thyroxine (T4) Calculated 0.94 0.89-1.76 ng/dL Total Triiodothyronine (TT3) 0.60 0.60-1.81 ng/mL Prothrombin Time 13.5 H 9.3-11.8 sec Prothrombin Time INR 1.31 H 0.9-1.15 Activated Partial Thromboplast Time 36.1 H 24.5-34.5 SEC Magnesium Level 1.5 L 1.6-2.6 mg/dL Troponin I High Sensitivity 6 </=54 ng/L B-Type Natriuretic Peptide 23.48 0-100 pg/mL Plasma/Serum Blood Alcohol < 3.0 <10 mg/dL Microbiology Date/Time Source Procedure Growth Status 11/28/24 20:30 Voided Urine Urine Culture - Final Proteus vulgaris Complete 11/28/24 18:53 Blood Blood Culture - Preliminary NO GROWTH AFTER 48 HOURS OF INCUBATION. Resulted Assessment [id number] R/O ACALCULOUS CHOLECYSTITIS R/O CBD STONE CONSTIPATION CLOSE OBSERVATION CONSIDER HIDA SCAN TO DETERMINE THE NEED FOR SURGERY Plan discussed with: Patient LA POWERS MD Dec 01, 2024 12:25
--- NOTE | 2024-12-01 13:07 | DVHINCON2 ---
DATE OF CONSULTATION: 12/01/2024 HISTORY OF PRESENT ILLNESS: This patient is 84 years old, coming in with upper abdominal pain and vomiting and no bowel movement for the past few days. No bleeding per rectum. PAST MEDICAL HISTORY: Significant for prostate cancer, asthma, type 2 diabetes, CVA, AFib, hypertension. PAST SURGICAL HISTORY: Prostate cancer surgery. PHYSICAL EXAMINATION: VITAL SIGNS: Afebrile, stable signs. HEENT: With no evidence of pallor, cyanosis, or jaundice. NECK: Supple, nontender with no thyromegaly or lymphadenopathy. CHEST AND LUNGS: Clear. HEART: Within normal limits. ABDOMEN: Soft, distended, minimally tender. No rebound. EXTREMITIES: Unremarkable. NEUROLOGIC: He is intact. CLINICAL IMPRESSION: Rule out constipation, rule out biliary colic, however, the ultrasound showed negative gallstones and liver enzymes are mildly elevated. Common bile duct stone needs to be ruled out. Acalculous cholecystitis needs to be ruled out, but at this time, no indication for urgent surgery. PLAN: The plan will be to consider repeating the liver enzymes a.m. and a HIDA scan is indicated to determine the need for surgery and ongoing evaluation for constipation. MD BRANDEN Webb/JAVIER TID: [id number] RECEIPT: [id number]
--- NOTE | 2024-12-01 14:13 | DVHPN2 ---
Subjective Feels better. Denies abdominal pain.. Reviewed: Care Plan, H&P, Labs, Medications, Previous Orders, Radiology, Other Changes from previous H/P or p: No Changes Objective Vitals Vital Signs Date Time Temp Pulse Resp B/P (MAP) Pulse Ox O2 Delivery O2 Flow Rate FiO2 12/01/24 13:00 98.1 85 17 128/54 (78) 92 98.1 12/01/24 06:05 Room Air* 0 21 Intake/Output Intake and Output 12/01/24 07:00 Intake Total 1560 ml Balance 1560 ml Intake Oral 560 ml IV Total 1000 ml # Voids 3 General Appearance: Alert, Oriented X3, Cooperative HEENT: Atraumatic Lungs: Clear to auscultation Cardiovascular: Regular rate Abdomen: Other (No abdominal tenderness today) Back: Flank Tenderness Psych/Mental Status: Mental status NL Medications Current Medications Medications Dose Ordered Sig/[place] Route Start Time Stop Time Status Last Admin Dose Admin Sodium Chloride 10 ml Q8HR IV 11/29/24 06:00 12/01/24 06:01 10 ML Ondansetron HCl 4 mg Q4HP PRN IV 11/28/24 22:15 Morphine Sulfate 2 mg Q4HPRN PRN IV 11/28/24 22:15 Pantoprazole Sodium 40 mg DAILY IV 11/28/24 23:45 12/01/24 09:38 40 MG Apixaban 5 mg BID PO 11/29/24 00:15 12/01/24 09:39 5 MG Levothyroxine Sodium 50 mcg QAM@0600 PO 11/29/24 06:00 12/01/24 05:58 50 MCG Diltiazem HCl 180 mg DAILY PO 11/29/24 10:00 12/01/24 09:40 180 MG Diagnostic Test (Pha) 1 strip ACHS 11/29/24 07:00 12/01/24 11:09 1 STRIP Insulin Human Regular ACHS SC 11/29/24 07:00 12/01/24 11:31 4 UNITS Dextrose 50 ml UD PRN IV 11/29/24 00:15 Losartan Potassium 25 mg DAILY PO 11/30/24 10:00 12/01/24 09:39 25 MG Albuterol 2.5 mg Q6HWA NEB 11/30/24 06:00 12/01/24 06:05 2.5 MG Ipratropium [place] 0.5 mg Q6HWA NEB 11/30/24 06:00 12/01/24 06:05 0.5 MG Sodium Chloride 1,000 ml @ 100 mls/hr Q10H IV 11/30/24 11:00 11/30/24 14:45 100 MLS/HR Piperacillin Sod/ Tazobactam Sod 100 ml @ 25 mls/hr Q8H IV 11/30/24 20:00 12/01/24 11:40 25 MLS/HR Laboratory Results Laboratory Tests 12/01/24 05:16 Chemistry Test 12/01/24 05:16 Albumin 3.5 g/dL (3.2-4.8) Calcium Level 8.9 mg/dL (8.7-10.4) Total Protein 5.8 g/dL (5.7-8.2) Lipid panel Test 12/01/24 05:16 Lipase 33 U/L (12-53) LFT Test 12/01/24 05:16 Alanine Aminotransferase (ALT) 247 U/L (7-40) H Alkaline Phosphatase 232 U/L (46-116) H Aspartate Amino Transferase (AST) 175 U/L (13-40) H Total Bilirubin 1.3 mg/dL (0.2-1.0) H Urinalysis Test 11/28/24 20:30 Urine Color Yellow (Yellow) Urine Clarity Clear (Clear) Urine pH 5.0 (5.0-9.0) Urine Specific [place] 1.022 (1.001-1.035) Urine Protein 1+ (Negative) H Urine Ketones Trace (Negative) Urine Blood Negative /uL (Negative) Urine Nitrite Negative (Negative) Urine Bilirubin Negative (Negative) Urine Urobilinogen Normal mg/dL (Negative) Urine Leukocyte Esterase Negative /uL (Negative) Urine RBC 1 /hpf (0 - 3) Urine Microscopic WBC 3 /HPF (0-3) Urine Squamous Epithelial Cells None seen /hpf (<5) Urine Bacteria None seen /hpf (None Seen) Urine Hyaline Casts Mod /lpf (0 - 2) Urine Glucose Normal mg/dL (Normal) Microbiology Microbiology Date/Time Source Procedure Growth Status 11/28/24 20:30 Voided Urine Urine Culture - Final Proteus vulgaris Complete 11/28/24 18:53 Blood Blood Culture - Preliminary NO GROWTH AFTER 48 HOURS OF INCUBATION. Resulted Assessment/Plan Assessment/Plan Possible cholecystitis with septic encephalopathy Questionable pyelonephritis Elevated liver function tests AFib Hypothyroidism Diabetes Dyslipidemia Acute kidney injury on top of chronic kidney disease stage 2/resolving Thrombocytopenia likely secondary to liver disease with the ultrasound abnormalities suggestive of chronic liver disease Bilateral renal cysts Bilateral kidney stones Plan: Repeat labs. HIDA scan pending. Stop acetaminophen and the statin. Repeat labs. Surgical consult. Further plan per orders Plan discussed with: Patient, Spouse, Other (Surgery) My Orders Orders - CRISTHIAN GOINS MD Procedure Category Date Status Time * Surgical Consult CONS 12/01/24 Transmitted Complete Blood Count LAB 12/02/24 Verified 06:00 Comprehensive LAB 12/02/24 Verified Metabolic Panel 06:00 Date of Service: Dec 01, 2024 Billing Provider: CRISTHIAN GOINS MD Common Visit Codes: [id number] INP/OBS CARE(HIGH) CRISTHIAN GOINS MD Dec 01, 2024 14:12
[2024-12-01] MEDS: MAGNESIUM CITRATE SOLUTION 300 ML BTL PO ONE (14:43)
[2024-12-02] VITALS (16 sets, daily range): BP systolic 120–136; BP diastolic 56–71; PULSE 68–90; RESP 14–20; TEMP 97.5–98.7; O2SAT 92–100
[2024-12-02 07:40] LABS: Basophils # (auto) 0 10 ^3/uL (0-0.2); Basophils % (auto) 0.3 % (0.0-2.0); Eosinophils # (auto) 0 10 ^3/uL (0-0.8); Eosinophils % (auto) 0.4 % (0.0-7.0); Hematocrit 34.5 % (41.0-53.0); Hemoglobin 11.8 g/dL (13.5-17.5); Lymphocytes # (auto) 0.7 10 ^3/uL (0.4-5.4); Lymphocytes % (auto) 5.8 % (10.0-50.0); Mean Corpuscular Hemoglobin 31.4 pg (28.0-32.0); Mean Corpuscular Hgb Conc. 34.2 g/dL (32.0-36.0); Mean Corpuscular Volume 91.9 fL (80.0-100.0); Monocytes # (auto) 0.8 10 ^3/uL (0-1.3); Neutrophils # (auto) 10.2 10 ^3/uL (1.6-8.6); Neutrophils % (auto) 86.5 % (37.0-80.0); Platelet Count (auto) 123 10^3/uL (140-450); Red Blood Cells 3.76 10^6/uL (4.5-5.90); Red Cell Distribution Width 14.6 % (11.8-14.3); White Blood Cell 11.8 10^3/uL (4.4-10.8)
[2024-12-02 07:58] LABS: Albumin 3.5 g/dL (3.2-4.8); Anion Gap 6 (5-15); BUN/Creatinine Ratio 17.7 (10.0-20.0); Blood Urea Nitrogen 14 mg/dL (9-23); Carbon Dioxide 26 mmol/L (20-31); Chloride 106 mmol/L (98-107); Sodium 138 mmol/L (136-145); Total Protein 5.9 g/dL (5.7-8.2)
[2024-12-02 08:14] LABS: Alanine Aminotransferase 285 U/L (7-40); Alkaline Phosphatase 310 U/L (46-116); Aspartate Aminotransferase 165 U/L (13-40); Bilirubin, Total 1.3 mg/dL (0.2-1.0); Calcium 8.7 mg/dL (8.7-10.4); Glucose 171 mg/dL (74-106)
--- NOTE | 2024-12-02 13:14 | DVH ---
EXAM: NM NM HIDA SCAN History: cleo Comparison Study: None available TECHNIQUE: Following intravenous administration of 4.1 mCi of Tc-99m mebrofenin (Choletec), dynamic sequential images of the right upper abdomen were acquired for 60 minutes. An additional 4 hour delay ed planar images in the frontal and lateral views were also obtained. FINDINGS: The liver demonstrates prompt radiotracer uptake with clearance from blood pool. No focal perfusion d efects were noted. There was prompt excretion of the radiotracer into the biliary tree, without evide nce of biliary dilatation or obstruction. There was no filling of the gallbladder on the 60 minute or 4 hour delayed images. IMPRESSION: 1. Nonvisualized gallbladder, consistent with acute cholecystitis.
--- NOTE | 2024-12-02 16:35 | DVHPNRES ---
Progress Note Date Seen: Dec 02, 2024 Resident Creating Document: ENRIQUE QUINTANILLA RESIDENT Medical Necessity Reason Pt with a Central, PICC or Fol: No Subjective Review of Systems Patient was seen and examined at bedside. He states feeling well, denies any significant chest pain, shortness of breath, lightheadedness, nausea, vomiting, dizziness, abdominal pain. He is currently tolerating diet, ambulatory. Alert and oriented x3 Objective vital signs Vital Sign Date Time Temp Pulse Resp B/P (MAP) Pulse Ox O2 Delivery O2 Flow Rate FiO2 12/02/24 13:00 97.5 86 17 120/64 (82) 94 97.5 12/02/24 11:28 21 12/02/24 10:15 Room Air 0.0 Total Intake and Output 12/01/24 12/01/24 12/02/24 15:00 23:00 07:00 Intake Total 100 ml 1600 ml 450 ml Balance 100 ml 1600 ml 450 ml medications Current Medications Medications Dose Ordered Sig/Hernando Route Start Time Stop Time Status Last Admin Dose Admin Sodium Chloride 10 ml Q8HR IV 11/29/24 06:00 12/02/24 13:27 10 ML Ondansetron HCl 4 mg Q4HP PRN IV 11/28/24 22:15 Morphine Sulfate 2 mg Q4HPRN PRN IV 11/28/24 22:15 Pantoprazole Sodium 40 mg DAILY IV 11/28/24 23:45 12/02/24 09:39 40 MG Levothyroxine Sodium 50 mcg QAM@0600 PO 11/29/24 06:00 12/02/24 06:26 50 MCG Diltiazem HCl 180 mg DAILY PO 11/29/24 10:00 12/02/24 09:39 180 MG Diagnostic Test (Pha) 1 strip ACHS 11/29/24 07:00 12/02/24 11:55 1 STRIP Insulin Human Regular ACHS SC 11/29/24 07:00 12/02/24 06:20 3 UNITS Dextrose 50 ml UD PRN IV 11/29/24 00:15 Losartan Potassium 25 mg DAILY PO 11/30/24 10:00 12/02/24 09:39 25 MG Albuterol 2.5 mg Q6HWA NEB 11/30/24 06:00 12/02/24 12:13 2.5 MG Ipratropium [place] 0.5 mg Q6HWA NEB 11/30/24 06:00 12/02/24 12:13 0.5 MG Piperacillin Sod/ Tazobactam Sod 100 ml @ 25 mls/hr Q8H IV 11/30/24 20:00 12/02/24 12:07 25 MLS/HR Enoxaparin Sodium 90 mg Q12HR SC 12/02/24 22:00 Examination General: Awake, alert, comfortable appearing, in no acute distress. HEENT: Head is normocephalic and atraumatic. Pupils are equal, round, and reactive to light. Extraocular muscles are intact. No nasal discharge. No facial trauma. Intraoral exam shows moist mucous membranes with no tonsillar enlargement or exudate. Neck: Supple with no cervical lymphadenopathy No meningismus. No goiter. Heart: Regular rate without murmur, rub, or gallop. Lungs: Equal breath sounds bilaterally with no wheezing, rales, or rhonchi. There is no chest wall tenderness or instability. Abdomen: Bowel sounds are present. Abdomen is soft, nontender. No rebound, no guarding, no rigidity. There are no palpable masses. Distended Extremities: Strong peripheral pulses. There is no clubbing, no cyanosis, and no edema. Skin: No rash. Neurologic: Cranial nerves II-XII intact without motor, sensory, or cerebellar deficit, no asterixis. laboratory and microbiology Laboratory Tests 12/02/24 06:08 Test 12/02/24 06:08 Range/Units Serum Glucose 171 H 74-106 mg/dL Microbiology Date/Time Source Procedure Growth Status 11/28/24 20:30 Voided Urine Urine Culture - Final Proteus vulgaris Complete 11/28/24 18:53 Blood Blood Culture - Preliminary NO GROWTH AFTER 72 HOURS OF INCUBATION. Resulted Labs and/or images reviewed: Labs reviewed by me, Image(s) reviewed by me Problem List/Assessment/Plan Problem List/Assessment/Plan Suspected acute cholecystitis Transaminitis, rule out choledocholithiasis, cholangitis AFib, controlled rate Metabolic encephalopathy likely due to UTI UTI, complicated Hypothyroidism Diabetes Dyslipidemia Acute kidney injury on top of chronic kidney disease stage 2/resolving Thrombocytopenia likely secondary to chronic liver disease Bilateral renal cysts Bilateral kidney stones Plan: HIDA scan revealed acute cholecystitis Ordered MRCP given raising LFTs Surgeon Dr. Johnson is following; cardiology consulted for clearance Continue Zosyn IV Goals of care discussed with the patient and his for 20 minutes; full code Case was discussed with Dr. Lin Plan discussed with: Patient, Spouse, Other (RN) My Orders My Orders Orders - ENRIQUE QUINTNAILLA RESIDENT Procedure Category Date Status Time Enoxaparin Sodium PHA 12/02/24 In Process (Lovenox) 22:00 Mrcp Mri MRI 12/02/24 Taken 15:19 Comprehensive LAB 12/03/24 Verified Metabolic Panel 04:00 Dietary Evaluation Review Recommendations by RD: Protein Supplementation Comments: 1) Initiate Ensure Clear bid while on clear liquid diet d/t poor PO intake. When upgrade to full liquid, consider Ensure Enlive bid. 2) Advance to 60g CCHO 2g Na diet when medically feasible. 3) Continue Zofran - encourage optimate PO intake 4) Consider staff to assist feeding d/t advanced age and AMS Expected Outcomes/Goals: 1) appetite and labs to improve 2) diet to advance 3) f/u in 3 days Addendum Addendum Addendum I was physically present for the ramos portions of the service provided to patient by THE RESIDENT. I have reviewed the documentation, discussed the case with resident and agree with the resident's documentation except as noted. Also the patient's clinical case was discussed with the patient's nurse. This medical document was created using an electronic medical record system with computerized dictation system. Although this document has been carefully reviewed, there might still be some phonetic and typographical errors. These areas are purely typographical due to imperfections of the software programs, and do not reflect any compromise in the patient's medical care. Late signature. Date of Service: Dec 02, 2024 Billing Provider: SCOT LIN MD Common Visit Codes: 19455-[id number] INP/OBS CARE(HIGH) Secondary Visit Codes: 63672-[id number] CARE PLAN 30 MINUTES (20 minutes) ENRIQUE QUINTANILLA RESIDENT Dec 02, 2024 16:35 SCOT LIN MD Dec 03, 2024 04:57
--- NOTE | 2024-12-02 16:45 | DVH ---
[id number] MRI MRCP MRI Attending Name: WEAVER, IMRAN Jeannine COMPARISON: HIDA scan dated 12/02/2024, abdominal ultrasound dated 11/29/2024 INDICATION: elevated liver enzymes, cholecystitis, r/o cholangitis TECHNIQUE: MRCP was performed without the use of intravenous contrast using a MRI imaging system. Three-dimensional MRCP was performed using maximum intensity projection reconstruction on an [facility] ent workstation under concurrent supervision. FINDINGS: Visualized lower thorax: Trace bilateral pleural effusions and moderate Right lower lung zone consoli dation. Liver: Liver is normal in size. No intrahepatic ductal dilatation but bile ducts appear thick-walled. Mild periportal edema.. Gallbladder: Diffuse gallbladder wall edema. Cholecystitis noted. Pericholecystic edema.. Biliary system: There is no intrahepatic or extrahepatic bile duct dilatation. The common bile duct m easures 0.3 cm in caliber. No filling defect to suggest choledocholithiasis. Spleen: Enlarged, 15.5 cm in craniocaudal. Pancreas: Normal in morphology and signal intensity. Adrenal glands: Normal in morphology and signal intensity. Kidneys: The kidneys are symmetric in size and appearance. No hydronephrosis. Multiple bilateral vincent l cysts measuring up to 4.9 cm. Urinary tract: The included ureters, as visualized, are normal in course and caliber. GI tract: The included portions of the bowel are within normal limits. Lymph nodes: No enlarged lymph nodes. Peritoneum: No ascites. Musculoskeletal: The bone marrow signal intensity is within normal limits. IMPRESSION: 1. Cholelithiasis with evidence of acute cholecystitis. Recommend surgical consultation. 2. No intra or extra hepatic biliary ductal dilatation. No MRI evidence of choledocholithiasis. 3. Periportal edema and intrahepatic ductal edema that could be secondary to cholecystitis . Cholang itis is not entirely excluded. Recommend clinical and biochemical correlation. Please note that eval uation is very limited in this unenhanced study. 4. Trace bilateral pleural effusions and moderate right lower lung zone consolidation that may repres ent atelectasis or pneumonia. 5. Mild splenomegaly. 6. Bilateral benign-appearing renal cysts.
--- NOTE | 2024-12-02 17:17 | DVHPN2 ---
Progress Note Date Seen: Dec 02, 2024 Medical Necessity Reason Pt with a Central, PICC or Fol: No Objective vital signs Vital Sign Date Time Temp Pulse Resp B/P (MAP) Pulse Ox O2 Delivery O2 Flow Rate FiO2 12/02/24 13:00 97.5 86 17 120/64 (82) 94 97.5 12/02/24 11:28 21 12/02/24 10:15 Room Air 0.0 Total Intake and Output 12/01/24 12/01/24 12/02/24 15:00 23:00 07:00 Intake Total 100 ml 1600 ml 450 ml Balance 100 ml 1600 ml 450 ml medications Current Medications Medications Dose Ordered Sig/Hernando Route Start Time Stop Time Status Last Admin Dose Admin Sodium Chloride 10 ml Q8HR IV 11/29/24 06:00 12/02/24 13:27 10 ML Ondansetron HCl 4 mg Q4HP PRN IV 11/28/24 22:15 Morphine Sulfate 2 mg Q4HPRN PRN IV 11/28/24 22:15 Pantoprazole Sodium 40 mg DAILY IV 11/28/24 23:45 12/02/24 09:39 40 MG Levothyroxine Sodium 50 mcg QAM@0600 PO 11/29/24 06:00 12/02/24 06:26 50 MCG Diltiazem HCl 180 mg DAILY PO 11/29/24 10:00 12/02/24 09:39 180 MG Diagnostic Test (Pha) 1 strip ACHS 11/29/24 07:00 12/02/24 16:55 1 STRIP Insulin Human Regular ACHS SC 11/29/24 07:00 12/02/24 06:20 3 UNITS Dextrose 50 ml UD PRN IV 11/29/24 00:15 Losartan Potassium 25 mg DAILY PO 11/30/24 10:00 12/02/24 09:39 25 MG Albuterol 2.5 mg Q6HWA NEB 11/30/24 06:00 12/02/24 12:13 2.5 MG Ipratropium [place] 0.5 mg Q6HWA NEB 11/30/24 06:00 12/02/24 12:13 0.5 MG Piperacillin Sod/ Tazobactam Sod 100 ml @ 25 mls/hr Q8H IV 11/30/24 20:00 12/02/24 12:07 25 MLS/HR Enoxaparin Sodium 90 mg Q12HR SC 12/02/24 22:00 laboratory and microbiology Laboratory Tests 12/02/24 06:08 Test 12/02/24 06:08 Range/Units Serum Glucose 171 H 74-106 mg/dL Microbiology Date/Time Source Procedure Growth Status 11/28/24 20:30 Voided Urine Urine Culture - Final Proteus vulgaris Complete 11/28/24 18:53 Blood Blood Culture - Preliminary NO GROWTH AFTER 72 HOURS OF INCUBATION. Resulted Problem List/Assessment/Plan Problem List/Assessment/Plan AFEBRILE VSS ABD SOFT DISTENDED CONSTIPATION HIDA SCAN POS FOR AC CHOLECYSTITIS HIGH RISK FOR SURGERY NEED CARDIOLOGY CLEARANCE MRCP PENDING TO R/O CBD STONE ELEVATED LFT Plan discussed with: Patient My Orders My Orders Orders - LA POWERS MD Procedure Category Date Status Time * Cardiology Consult CONS 12/02/24 Transmitted 16:54 Dietary Evaluation Review Recommendations by RD: Protein Supplementation Comments: 1) Initiate Ensure Clear bid while on clear liquid diet d/t poor PO intake. When upgrade to full liquid, consider Ensure Enlive bid. 2) Advance to 60g CCHO 2g Na diet when medically feasible. 3) Continue Zofran - encourage optimate PO intake 4) Consider staff to assist feeding d/t advanced age and AMS Expected Outcomes/Goals: 1) appetite and labs to improve 2) diet to advance 3) f/u in 3 days LA POWERS MD Dec 02, 2024 17:17
[2024-12-02] MEDS: MAGNESIUM CITRATE SOLUTION 300 ML BTL PO ONE (17:43)
--- NOTE | 2024-12-02 18:00 | DVHINCON2 ---
HERB WOODRUFF [facility] 12/02/24 1800: Date Seen: Dec 02, 2024 Referring Physician MD Alex Reason for Consultation Cardiac risk stratification History of Present Illness This is an 84-year-old man who presented to the emergency room via EMS with a chief complaint of generalized weakness. The patient experienced generalized weakness associated with ALOC, pyrexia, nausea, mild shortness of breath, some tachycardia, and acute hypoxia with O2 saturations of 92% on room air. HIDA scan positive for acute cholecystitis prompting cardiac risk stratification for possible surgical intervention. At time of assessment the patient denied any SOB, chest pain, diaphoresis, palpitations, or dizziness. Denies exertional angina or dyspnea on exertion. Baseline troponin level is negative. Baseline 12 lead electrocardiogram revealed a sinus rhythm with a associated left bundle branch block. Follows up with primary gambreler in [place] who he sees once per year. Significant medical history includes paroxysmal atrial fibrillation on Cardizem and Eliquis therapy, history of CVA in 2014, hypertension, dyslipidemia, thyroid disease, insulin-dependent diabetes mellitus, asthma, prostate cancer, and obesity. Past Medical History Past medical history reviewed. No other significant than mentioned above. Past Surgical History Prostate cancer surgery Cataracts Family History: FH: cancer G8 FATHER Family History Family history reviewed. Social History Denies the use of illicit drugs, alcohol, or tobacco use. Allergies: Coded Allergies: Shellfish Allergy (Verified Allergy, Unknown, 11/29/24) Home Meds Reported Medications Fluticasone Propionate (Fluticasone Propionate) 0.05 % Cre, 50 MCG SHEFALI for 30 Days, MCG 11/29/24 Albuterol Sulfate (Albuterol Sulfate) 2 Mg Tab, 2.5 MG PO Q4HR, MG 11/29/24 Insulin Glargine (Lantus) 100 Unit/Ml Inj, 50 UNIT SC, INJ 11/29/24 Ascorbic Acid (VITAMIN C TABLET) 500 Mg Tb, 1000 MG PO, TAB 11/29/24 Montelukast Sodium (MONTELUKAST SODIUM) 10 Mg Tab, 10 MG PO HS, TAB 11/29/24 Imipramine HCl (Imipramine Hydrochloride) 50 Mg Tab, 50 MG PO HS, TAB 11/29/24 Atorvastatin Calcium (ATORVASTATIN CALCIUM) 20 Mg Tab, 1 TAB PO DAILY, #30 TAB 5 Refills 11/29/24 Diltiazem Hcl (Diltiazem Hcl) 60 Mg Tab, 180 MG PO Q8HR for 30 Days, MG 11/29/24 Losartan Potassium (Losartan Potassium) 25 Mg Tab, 1 TAB PO DAILY, #90 TAB 1 Refill 11/29/24 Alpha Tocopheryl Acid Succinat (VITAMIN E) 400 Unit Tab, 400 UNIT PO DAILY, TAB 11/29/24 Cholecalciferol (VITAMIN D3) 2,000 Unit Tab, 1000 UNIT PO DAILY, TAB 11/29/24 Metformin Hydrochloride (Metformin Hcl) 500 Mg Tab, 1000 MG PO IBID for 30 Days, MG 11/29/24 Apixaban Base (ELIQUIS) 5 Mg Tab, 5 MG PO BID, TAB 11/29/24 Levothyroxine Sodium (Levothyroxine Sodium) 50 Mcg Tab, 50 MCG PO QAM for 30 Days, MCG 11/29/24 Home Meds Home medications reviewed. Current Medications Current Medications Medications (Trade) Dose Ordered Sig/Hernando Route PRN Reason Start Time Stop Time Status Last Admin Enoxaparin Sodium (Lovenox) 90 mg Q12HR SC 12/02/24 22:00 Review of Systems Constitutional: Generalized weakness, fever Ears, Nose, & Throat: No symptom reported Eyes: No symptom reported Neurological: No symptoms reported Pulmonary/Respiratory: SOB Cardiovascular: No symptom reported Gastrointestinal: Nausea Genitourinary: No symptom reported Musculoskeletal: No symptom reported Skin: No symptom reported Psychiatric: No symptom reported Endocrine: No symptom reported Hemotologic/Lymphatic: No symptom reported Vital Signs Vital Signs Date Time Temp Pulse Resp B/P (MAP) Pulse Ox O2 Delivery O2 Flow Rate FiO2 12/02/24 17:42 97.9 84 17 128/58 (81) 92 97.9 12/02/24 11:28 21 12/02/24 10:15 Room Air 0.0 Physical Exam General Appearance: Cooperative. Well developed. Obese. In no acute distress Head Exam: Normal inspection Neck Exam: Normal inspection. Non-tender. Normal alignment Pulmonary/Respiratory: Chest non-tender. Clear bilateral breath sounds Cardiovascular/Chest: Regular rate and rhythm. S1, S2. Sinus rhythm with a associated LBBB. No murmurs. No JVD. Peripheral Pulses: 2+ Radial (R). 2+ Radial (L). 2+ Pedal (R). 2+ Pedal (L) Abdominal Exam: Normal bowel sounds. Soft. Distended Ankle Exam: Negative ankle edema Lower extremities: Negative lower extremity edema Neuro/Mental Status: A&O x4. Coherent Thoughts/Psych: Normal thought pattern. Appropriate mood and affect. Good judgement and insight Appearance: In no acute distress Skin Exam: Normal inspection. Normal color. Warm. Dry Labs/Diagnostic Data Labs Test 12/02/24 16:27 12/02/24 06:08 12/01/24 05:16 11/29/24 00:47 Range/Units POC Glucose 265 H 70-106 mg/dl White Blood Count 11.8 H 4.4-10.8 10^3/uL Red Blood Count 3.76 L 4.5-5.90 10^6/uL Hemoglobin 11.8 L 13.5-17.5 g/dL Hematocrit 34.5 L 41.0-53.0 % Mean Corpuscular Volume 91.9 80.0-100.0 fL Mean Corpuscular Hemoglobin 31.4 28.0-32.0 pg Mean Corpuscular Hemoglobin Concent 34.2 32.0-36.0 g/dL Red Cell Distribution Width 14.6 H 11.8-14.3 % Platelet Count 123 L 140-450 10^3/uL Mean Platelet Volume 8.2 6.9-10.8 fL Neutrophils (%) (Auto) 86.5 H 37.0-80.0 % Lymphocytes (%) (Auto) 5.8 L 10.0-50.0 % Monocytes (%) (Auto) 7.0 0.0-12.0 % Eosinophils (%) (Auto) 0.4 0.0-7.0 % Basophils (%) (Auto) 0.3 0.0-2.0 % Neutrophils # (Auto) 10.2 H 1.6-8.6 10 ^3/uL Lymphocytes # (Auto) 0.7 0.4-5.4 10 ^3/uL Monocytes # (Auto) 0.8 0-1.3 10 ^3/uL Eosinophils # (Auto) 0 0-0.8 10 ^3/uL Basophils # (Auto) 0 0-0.2 10 ^3/uL Nucleated Red Blood Cells 0.0 % Sodium Level 138 136-145 mmol/L Potassium Level 4.0 3.5-5.1 mmol/L Chloride Level 106 98-107 mmol/L Carbon Dioxide Level 26 20-31 mmol/L Anion Gap 6 5-15 Blood Urea Nitrogen 14 9-23 mg/dL Creatinine 0.79 0.700-1.30 mg/dL Glomerular Filtration Rate Calc 87 >90 mL/min BUN/Creatinine Ratio 17.7 10.0-20.0 Serum Glucose 171 H 74-106 mg/dL Calcium Level 8.7 8.7-10.4 mg/dL Magnesium Level 1.7 1.6-2.6 mg/dL Total Bilirubin 1.3 H 0.2-1.0 mg/dL Aspartate Amino Transferase (AST) 165 H 13-40 U/L Alanine Aminotransferase (ALT) 285 H 7-40 U/L Alkaline Phosphatase 310 H 46-116 U/L Total Protein 5.9 5.7-8.2 g/dL Albumin 3.5 3.2-4.8 g/dL Amylase Level 40 30-118 U/L Lipase 33 12-53 U/L Influenza Type A Antigen Negative Negative Influenza Type B Antigen Negative Negative SARS-CoV-2 Antigen (Rapid) Negative NEGATIVE Test 11/28/24 22:20 11/28/24 20:30 11/28/24 20:20 11/28/24 18:53 Range/Units Lactic Acid Level 1.2 0.4-2.0 mmol/L Ammonia < 10 L 11-32 umol/L Thyroid Stimulating Hormone (TSH) 3.25 0.55-4.78 uIU/mL Urine Color Yellow Yellow Urine Clarity Clear Clear Urine pH 5.0 5.0-9.0 Urine Specific [place] 1.022 1.001-1.035 Urine Protein 1+ H Negative Urine Ketones Trace Negative Urine Blood Negative Negative /uL Urine Nitrite Negative Negative Urine Bilirubin Negative Negative Urine Urobilinogen Normal Negative mg/dL Urine Leukocyte Esterase Negative Negative /uL Urine RBC 1 0 - 3 /hpf Urine Microscopic WBC 3 0-3 /HPF Urine Squamous Epithelial Cells None seen <5 /hpf Urine Bacteria None seen None Seen /hpf Urine Hyaline Casts Mod 0 - 2 /lpf Urine Glucose Normal Normal mg/dL Urine Opiates Screen Neg NEGATIVE Urine Fentanyl Screen Neg NEGATIVE Urine Barbiturates Screen Neg NEGATIVE Urine Phencyclidine Screen Neg NEGATIVE Urine Amphetamines Screen Neg NEGATIVE Urine Benzodiazepines Screen Neg NEGATIVE Urine Cocaine Screen Neg NEGATIVE Urine Cannabinoids Screen Neg NEGATIVE Free Thyroxine (T4) Calculated 0.94 0.89-1.76 ng/dL Total Triiodothyronine (TT3) 0.60 0.60-1.81 ng/mL Prothrombin Time 13.5 H 9.3-11.8 sec Prothrombin Time INR 1.31 H 0.9-1.15 Activated Partial Thromboplast Time 36.1 H 24.5-34.5 SEC Troponin I High Sensitivity 6 </=54 ng/L B-Type Natriuretic Peptide 23.48 0-100 pg/mL Plasma/Serum Blood Alcohol < 3.0 <10 mg/dL Microbiology Date/Time Source Procedure Growth Status 11/28/24 20:30 Voided Urine Urine Culture - Final Proteus vulgaris Complete 11/28/24 18:53 Blood Blood Culture - Preliminary NO GROWTH AFTER 72 HOURS OF INCUBATION. Resulted Assessment Preprocedural cardiovascular examination Paroxysmal atrial fibrillation, now NSR with LBBB, on Cardizem/Eliquis at home Acute cholecystitis Hypertension Dyslipidemia Thyroid disease HX of CVA IDDM Obesity Plan/Recommendation (Dr. Waldrop) Echocardiogram reveals EF 55-60%. Revised cardiac risk index (Cipriano criteria): 10.1% risk of , LA or cardiac arrest. Patient has no underlying history of congestive heart failure, coronary artery disease, and has a fair functional capacity. Per Cardiology standpoint, the patient is at an acceptable-risk for moderate-risk surgery. Continue therapeutic Lovenox. Resume NOAC therapy within 24 hours if low postprocedural bleeding risk. Continue Cardizem therapy. Follow-up with primary Project Management Specialist as scheduled. There is no additional cardiac workup indicated prior to surgery. Thank you for allowing us to care for this patient. Please call with any questions or concerns. This medical document was created using an electronic medical record system with voice recognition software and computerized dictation system. Although this document has been carefully reviewed, there might still be some phonetic and typographical errors. Occasional wrong-word or ``sound-alike substitutions may have occurred due to the inherent limitations of voice recognition software. These areas are purely typographical due to imperfections of the software programs and do not reflect any compromise in the patient's medical care. Please read the chart carefully and recognize, using context, where these substitutions have occurred. Plan discussed with: Patient, Spouse, Other NYHA Physical activity limitations: NA Date of Service: Dec 02, 2024 Billing Provider: HERB WOODRUFF Cardiology Common Codes: 85705-[id number] INP/OBS CARE (High) UNRULY WALDROP MD 12/03/24 1427: Family History: FH: cancer G8 FATHER Allergies: Coded Allergies: Shellfish Allergy (Verified Allergy, Unknown, 11/29/24) Home Meds Reported Medications Fluticasone Propionate (Fluticasone Propionate) 0.05 % Cre, 50 MCG SHEFALI for 30 Days, MCG 11/29/24 Albuterol Sulfate (Albuterol Sulfate) 2 Mg Tab, 2.5 MG PO Q4HR, MG 11/29/24 Insulin Glargine (Lantus) 100 Unit/Ml Inj, 50 UNIT SC, INJ 11/29/24 Ascorbic Acid (VITAMIN C TABLET) 500 Mg Tb, 1000 MG PO, TAB 11/29/24 Montelukast Sodium (MONTELUKAST SODIUM) 10 Mg Tab, 10 MG PO HS, TAB 11/29/24 Imipramine HCl (Imipramine Hydrochloride) 50 Mg Tab, 50 MG PO HS, TAB 11/29/24 Atorvastatin Calcium (ATORVASTATIN CALCIUM) 20 Mg Tab, 1 TAB PO DAILY, #30 TAB 5 Refills 11/29/24 Diltiazem Hcl (Diltiazem Hcl) 60 Mg Tab, 180 MG PO Q8HR for 30 Days, MG 11/29/24 Losartan Potassium (Losartan Potassium) 25 Mg Tab, 1 TAB PO DAILY, #90 TAB 1 Refill 11/29/24 Alpha Tocopheryl Acid Succinat (VITAMIN E) 400 Unit Tab, 400 UNIT PO DAILY, TAB 11/29/24 Cholecalciferol (VITAMIN D3) 2,000 Unit Tab, 1000 UNIT PO DAILY, TAB 11/29/24 Metformin Hydrochloride (Metformin Hcl) 500 Mg Tab, 1000 MG PO IBID for 30 Days, MG 11/29/24 Apixaban Base (ELIQUIS) 5 Mg Tab, 5 MG PO BID, TAB 11/29/24 Levothyroxine Sodium (Levothyroxine Sodium) 50 Mcg Tab, 50 MCG PO QAM for 30 Day s, MCG 11/29/24 Plan/Recommendation preop eval for GB surgery advanced age RCRI calculated above, should proceed at intermediate risk pending risks benefits discussion with surgical team Plan discussed with: Other (rn) HERB WOODRUFF Dec 02, 2024 18:00 UNRULY WALDROP MD Dec 03, 2024 14:27
[2024-12-02] MEDS: ENOXAPARIN SOD 100 MG/1 ML SYRINGE SC SCH (22:37)
[2024-12-03] VITALS (17 sets, daily range): BP systolic 126–147; BP diastolic 63–71; PULSE 74–90; RESP 12–20; TEMP 97.5–99.2; O2SAT 91–100
[2024-12-03 07:32] LABS: Albumin 3.5 g/dL (3.2-4.8); Anion Gap 6 (5-15); BUN/Creatinine Ratio 16.1 (10.0-20.0); Bilirubin, Total 1.1 mg/dL (0.2-1.0); Blood Urea Nitrogen 14 mg/dL (9-23); Carbon Dioxide 28 mmol/L (20-31); Chloride 105 mmol/L (98-107); Potassium 4.1 mmol/L (3.5-5.1); Sodium 139 mmol/L (136-145)
[2024-12-03 07:35] LABS: Alanine Aminotransferase 274 U/L (7-40); Alkaline Phosphatase 350 U/L (46-116); Aspartate Aminotransferase 142 U/L (13-40); Calcium 8.6 mg/dL (8.7-10.4); Glucose 161 mg/dL (74-106)
[2024-12-03] MEDS: SUCCINYLCHOLINE CHLORIDE 20 MG/ML 10ML VIAL IV ONE (07:56)
[2024-12-03] MEDS ORDERED: fentaNYL CITRATE 100 MCG/2 ML VL ONE ×2 (08:00→08:58)
[2024-12-03] MEDS ORDERED: PROPOFOL 10 MG/ML 20 ML IV ONE (08:00)
[2024-12-03] MEDS: BUPIVACAINE 0.25% INJ 50ML VIAL ONE (08:05)
[2024-12-03] MEDS ORDERED: ONDANSETRON HCL 4 MG/2 ML VIAL ONE (08:31)
[2024-12-03] MEDS ORDERED: DexAMETHasone SOD PHOS 10MG/1ML VIAL INJ ONE (08:31)
[2024-12-03] MEDS ORDERED: ROCURONIUM 10MG/ML 10ML VIAL IV ONE (08:32)
[2024-12-03] MEDS ORDERED: ceFAZolin 1GM VL ONE (08:51)
[2024-12-03] MEDS: ceFAZolin 1GM VL ONE (09:40)
[2024-12-03] MEDS ORDERED: SUGAMMADEX 200mg/2ml Vial (100MG/ML) IV ONE (10:09)
[2024-12-03] MEDS ORDERED: MEPERIDINE HCL (50 MG/ML) 1 ML VIAL ONE (10:10)
--- NOTE | 2024-12-03 11:17 | DVHOP2 ---
Operative Report [id number] AC CHOLECYSTITIS DENSE ADHESIONS INTRAABD ABSCESS LAP RODRICK OPEN DRAINAGE OF INTRAABD ABSCESS, OPEN CHOLECYSTOSTOMY, OPEN CHOLECYSTECTOMY EBL 50 CC ONE DRAIN NO COMPLICATIONS LA POWERS MD Dec 03, 2024 11:17
--- NOTE | 2024-12-03 11:21 | DVHPNRES ---
Progress Note Date Seen: Dec 03, 2024 Resident Creating Document: ENRIQUE QUINTANILLA RESIDENT Medical Necessity Reason Pt with a Central, PICC or Fol: No Subjective Review of Systems Patient was seen and examined at bedside. He states feeling well, denies any significant chest pain, shortness of breath, lightheadedness, nausea, vomiting, dizziness, abdominal pain. Alert and oriented x3. He will be undergoing cholecystectomy today, he is currently NPO, we held Lovenox. Objective vital signs Vital Sign Date Time Temp Pulse Resp B/P (MAP) Pulse Ox O2 Delivery O2 Flow Rate FiO2 12/03/24 09:00 98.1 81 18 135/69 (91) 94 98.1 12/03/24 08:00 Room Air* 0 21 Total Intake and Output 12/02/24 12/02/24 12/03/24 15:00 23:00 07:00 Intake Total 500 ml 1000 ml 390 ml Balance 500 ml 1000 ml 390 ml medications Current Medications Medications Dose Ordered Sig/Hernando Route Start Time Stop Time Status Last Admin Dose Admin Sodium Chloride 10 ml Q8HR IV 11/29/24 06:00 12/03/24 06:34 10 ML Ondansetron HCl 4 mg Q4HP PRN IV 11/28/24 22:15 Morphine Sulfate 2 mg Q4HPRN PRN IV 11/28/24 22:15 Pantoprazole Sodium 40 mg DAILY IV 11/28/24 23:45 12/02/24 09:39 40 MG Levothyroxine Sodium 50 mcg QAM@0600 PO 11/29/24 06:00 12/02/24 06:26 50 MCG Diltiazem HCl 180 mg DAILY PO 11/29/24 10:00 12/02/24 09:39 180 MG Diagnostic Test (Pha) 1 strip ACHS 11/29/24 07:00 12/03/24 06:34 1 STRIP Insulin Human Regular ACHS SC 11/29/24 07:00 12/03/24 06:33 2 UNITS Dextrose 50 ml UD PRN IV 11/29/24 00:15 Losartan Potassium 25 mg DAILY PO 11/30/24 10:00 12/02/24 09:39 25 MG Albuterol 2.5 mg Q6HWA NEB 11/30/24 06:00 12/03/24 06:13 2.5 MG Ipratropium [place] 0.5 mg Q6HWA NEB 11/30/24 06:00 12/03/24 06:13 0.5 MG Piperacillin Sod/ Tazobactam Sod 100 ml @ 25 mls/hr Q8H IV 11/30/24 20:00 12/03/24 03:49 25 MLS/HR Enoxaparin Sodium 90 mg Q12HR SC 12/02/24 22:00 Hold 12/02/24 22:37 90 MG Examination General: Awake, alert, comfortable appearing, in no acute distress. HEENT: Head is normocephalic and atraumatic. Pupils are equal, round, and reactive to light. Extraocular muscles are intact. No nasal discharge. No facial trauma. Intraoral exam shows moist mucous membranes with no tonsillar enlargement or exudate. Neck: Supple with no cervical lymphadenopathy No meningismus. No goiter. Heart: Regular rate without murmur, rub, or gallop. Lungs: Equal breath sounds bilaterally with no wheezing, rales, or rhonchi. There is no chest wall tenderness or instability. Abdomen: Bowel sounds are present. Abdomen is soft, nontender. No rebound, no guarding, no rigidity. There are no palpable masses. Distended Extremities: Strong peripheral pulses. There is no clubbing, no cyanosis, and no edema. Skin: No rash. Neurologic: Cranial nerves II-XII intact without motor, sensory, or cerebellar deficit, no asterixis. laboratory and microbiology Laboratory Tests 12/03/24 06:19 12/02/24 06:08 Test 12/03/24 06:19 Range/Units Serum Glucose 161 H 74-106 mg/dL Microbiology Date/Time Source Procedure Growth Status 11/28/24 20:30 Voided Urine Urine Culture - Final Proteus vulgaris Complete 11/28/24 18:53 Blood Blood Culture - Preliminary NO GROWTH AFTER 72 HOURS OF INCUBATION. Resulted Labs and/or images reviewed: Labs reviewed by me, Image(s) reviewed by me Problem List/Assessment/Plan Problem List/Assessment/Plan acute cholecystitis Transaminitis, rule out choledocholithiasis, cholangitis AFib, controlled rate Metabolic encephalopathy likely due to UTI UTI, complicated Pneumonia Gram-positive versus Gram-negative Atelectasis Hypothyroidism Diabetes Dyslipidemia Acute kidney injury due to VMN Thrombocytopenia likely secondary to chronic liver disease Bilateral renal cysts Bilateral kidney stones Plan: HIDA scan revealed acute cholecystitis Liver enzymes are trending up, continue monitoring CMP MRCP revealed periportal edema, intrahepatic due to edema, acute cholecystitis, trace bilateral pleural effusion, right lower lung consolidation versus atelectasis Surgeon following, he will performed in cholecystectomy today 12/03/2024 Continue Zosyn IV Goals of care were discussed for over 30 mins. FULL CODE. Case was discussed with Dr. Smith Plan discussed with: Patient, Spouse, Other (RN) My Orders My Orders Orders - ENRIQUE QUINTANILLA RESIDENT Procedure Category Date Status Time Mrcp Mri MRI 12/02/24 Resulted 15:19 Npo After Midnight ORDERS 12/02/24 Transmitted Npo (Nothing By DIET 12/03/24 Transmitted Mouth) Diet Breakfast Dietary Evaluation Review Recommendations by RD: Protein Supplementation Comments: 1) Initiate Ensure Clear bid while on clear liquid diet d/t poor PO intake. When upgrade to full liquid, consider Ensure Enlive bid. 2) Advance to 60g CCHO 2g Na diet when medically feasible. 3) Continue Zofran - encourage optimate PO intake 4) Consider staff to assist feeding d/t advanced age and AMS Expected Outcomes/Goals: 1) appetite and labs to improve 2) diet to advance 3) f/u in 3 days Date of Service: Dec 03, 2024 Billing Provider: RAMON SMITH MD Common Visit Codes: [id number] INP/OBS CARE(HIGH) ENRIQUE QUINTANILLA RESIDENT Dec 03, 2024 11:21 RAMON SMITH MD Dec 04, 2024 17:37
[2024-12-03] MEDS ORDERED: MEPERIDINE HCL (25 MG/ML) 1ML VIAL IV PRN (11:30)
[2024-12-03] MEDS ORDERED: HYDROmorphone HCL 2 MG/ML VL/or syr IV PRN (11:30)
[2024-12-03] MEDS: ONDANSETRON HCL 4 MG/2 ML VIAL IV ONE (11:30)
[2024-12-03] MEDS ORDERED: ACETAMINOPHEN IV 1000 MG/100ML (10MG/ML) IV PRN (11:30)
--- NOTE | 2024-12-03 11:35 | DVHOP ---
DATE OF SURGERY: 12/03/2024 POSTOPERATIVE DIAGNOSES: Acute cholecystitis, was found to have intraabdominal abscess with dense adhesions. POSTOPERATIVE DIAGNOSES: Acute cholecystitis, was found to have intraabdominal abscess with dense adhesions. PROCEDURES: Laparoscopic lysis of adhesions with open cholecystostomy and open cholecystectomy and drainage of intraabdominal abscess. SURGEON: Cassius Johnson MD [employer] ATTENDANT: Pavel Melissa MD ANESTHESIA: General. BLOOD LOSS: Close to 50 mL. DRAINS: One drain was used. COMPLICATIONS: No complication encountered. DESCRIPTION OF PROCEDURE: The patient was prepped and draped in the usual sterile fashion in the supine position and a supraumbilical incision was applied and was taken down to the fascia. The Veress needle was introduced and CO2 insufflation was started to pressure of 15 mmHg. The needle was withdrawn, replaced by the 5 mm trocar, and the telescope introduced and the gallbladder was found to be acutely inflamed distended with dense intraabdominal adhesions. A 12 mm port was applied close to the xiphisternum and two 5 mm ports were applied more laterally in subcostal line. With instruments in place, the patient in the head up and right upper lateral position, the adhesions were taken down and with meticulous dissection the fundus of the gallbladder was exposed but it was realized that the bowel was very close to the adhesions and an abscess was found as well. So it was decided to do the surgery open for safety and the patient was then placed back supine. The CO2 insufflation was stopped. The right subcostal incision was applied, connecting the xiphisternal and the mid subcostal incision, and the fascia was divided, the rectus muscle was divided, the posterior fascia was divided, and the peritoneum was divided. The CO2 was let out and with suitable exposure, the adhesions were taken down. The bowel was released from the adhesions. The gallbladder was then identified. It was decompressed. A cholecystostomy was done using needle and syringe assembly. This allowed further dissection of the gallbladder from the liver bed in a retrograde fashion. This allowed me to identify the cystic duct and artery. They were both separately clipped proximally and distally and divided in between making sure CBD was kept out of harm's way at all times. The gallbladder was detached from the liver bed using blunt dissection and Harmonic dissection and then once released, it was submitted for pathology. The cultures were sent from the drainage of the cholecystostomy and SNoW coagulant was applied along with Jania powder for hemostasis and then after the irrigation was done and then the size 19 Tano drainage was placed to drain the liver bed, bringing it out from the lateral subcostal incision. After that, one port had been withdrawn, then securing the drain with a silk suture and then the peritoneum was brought together using Vicryl suture. The fascia was brought together using PDS suture. The skin incision was brought together using Monocryl suture in subcuticular fashion. Surgical glue was applied. The incision of the supraumbilical incision of the port site also was brought together using 3-0 Monocryl suture in a subcuticular fashion. Surgical glue was applied as well. The patient tolerated the procedure well and was taken back to the recovery room in a stable condition. MD BRANDEN Webb/ANTONI TID: [id number] RECEIPT: [id number] cc: Pavel Melissa MD, Art Dominguez MD
[2024-12-03] MEDS: ONDANSETRON HCL 4 MG/2 ML VIAL IV PRN (17:37)
[2024-12-03] MEDS: MORPHINE SULFATE INJ 2 MG/ml SYRG IV PRN (17:38)
[2024-12-03] MEDS: SODIUM CHLORIDE 0.9% 1,000 ML IV SCH (23:29)
[2024-12-04] VITALS (14 sets, daily range): BP systolic 134–152; BP diastolic 56–73; PULSE 73–85; RESP 12–20; TEMP 97.4–98.1; O2SAT 89–100
[2024-12-04 07:23] LABS: Albumin 3.5 g/dL (3.2-4.8); Anion Gap 8 (5-15); BUN/Creatinine Ratio 27.2 (10.0-20.0); Blood Urea Nitrogen 22 mg/dL (9-23); Calcium 8.7 mg/dL (8.7-10.4); Carbon Dioxide 27 mmol/L (20-31); Chloride 106 mmol/L (98-107); Potassium 4.6 mmol/L (3.5-5.1); Sodium 141 mmol/L (136-145)
[2024-12-04 07:24] LABS: Bilirubin, Total 0.6 mg/dL (0.2-1.0)
[2024-12-04 07:25] LABS: Alanine Aminotransferase 250 U/L (7-40); Alkaline Phosphatase 296 U/L (46-116); Aspartate Aminotransferase 117 U/L (13-40); Glucose 209 mg/dL (74-106)
--- NOTE | 2024-12-04 07:38 | DVHPNRES ---
Progress Note Date Seen: Dec 04, 2024 Resident Creating Document: ENRIQUE QUINTANILLA RESIDENT Medical Necessity Reason Pt with a Central, PICC or Fol: No Subjective Review of Systems Patient was seen and examined at bedside. He states feeling well, denies any significant chest pain, shortness of breath, lightheadedness, nausea, vomiting, dizziness Alert and oriented x3. He underwent cholecystectomy yesterday, he is currently NPO, NG tube is draining yellow fluid, output was 75 mL yesterday, HECTOR drain has signed units fluid, output was 40 mL yesterday. Objective vital signs Vital Sign Date Time Temp Pulse Resp B/P (MAP) Pulse Ox O2 Delivery O2 Flow Rate FiO2 12/04/24 06:59 75 12 100 12/04/24 06:53 Nasal Cannula 3.0 12/04/24 06:53 32 12/04/24 05:00 97.4 139/71 (93) 97.4 Total Intake and Output 12/03/24 12/03/24 12/04/24 15:00 23:00 07:00 Intake Total 200 ml 0 ml Output Total 115 ml Balance 200 ml -115 ml medications Current Medications Medications Dose Ordered Sig/Hernando Route Start Time Stop Time Status Last Admin Dose Admin Sodium Chloride 10 ml Q8HR IV 11/29/24 06:00 12/04/24 05:12 10 ML Ondansetron HCl 4 mg Q4HP PRN IV 11/28/24 22:15 12/03/24 17:37 4 MG Morphine Sulfate 2 mg Q4HPRN PRN IV 11/28/24 22:15 12/03/24 17:38 2 MG Pantoprazole Sodium 40 mg DAILY IV 11/28/24 23:45 12/02/24 09:39 40 MG Levothyroxine Sodium 50 mcg QAM@0600 PO 11/29/24 06:00 12/02/24 06:26 50 MCG Diltiazem HCl 180 mg DAILY PO 11/29/24 10:00 12/02/24 09:39 180 MG Diagnostic Test (Pha) 1 strip ACHS 11/29/24 07:00 12/04/24 06:06 1 STRIP Insulin Human Regular ACHS SC 11/29/24 07:00 12/04/24 06:31 4 UNITS Dextrose 50 ml UD PRN IV 11/29/24 00:15 Losartan Potassium 25 mg DAILY PO 11/30/24 10:00 12/02/24 09:39 25 MG Albuterol 2.5 mg Q6HWA NEB 11/30/24 06:00 12/04/24 06:53 2.5 MG Ipratropium [place] 0.5 mg Q6HWA NEB 11/30/24 06:00 12/04/24 06:53 0.5 MG Piperacillin Sod/ Tazobactam Sod 100 ml @ 25 mls/hr Q8H IV 11/30/24 20:00 12/04/24 04:30 25 MLS/HR Enoxaparin Sodium 90 mg Q12HR SC 12/02/24 22:00 Hold 12/02/24 22:37 90 MG Sodium Chloride 1,000 ml @ 75 mls/hr [id number] IV 12/03/24 18:45 12/03/24 23:29 75 MLS/HR Examination General: Awake, alert, comfortable appearing, in no acute distress. HEENT: Head is normocephalic and atraumatic. Pupils are equal, round, and reactive to light. Extraocular muscles are intact. No nasal discharge. No facial trauma. Intraoral exam shows moist mucous membranes with no tonsillar enlargement or exudate. Neck: Supple with no cervical lymphadenopathy No meningismus. No goiter. Heart: Regular rate without murmur, rub, or gallop. Lungs: Equal breath sounds bilaterally with no wheezing, rales, or rhonchi. There is no chest wall tenderness or instability. Abdomen: Bowel sounds are present. Abdomen is distended, HECTOR drain on right side, surgical scar due to open cholecystectomy, no signs of active infection. Extremities: Strong peripheral pulses. There is no clubbing, no cyanosis, and no edema. Skin: No rash. Neurologic: Cranial nerves II-XII intact without motor, sensory, or cerebellar deficit, no asterixis. laboratory and microbiology Laboratory Tests 12/04/24 06:02 12/02/24 06:08 Test 12/04/24 06:02 Range/Units Serum Glucose 209 H 74-106 mg/dL Microbiology Date/Time Source Procedure Growth Status 11/28/24 20:30 Voided Urine Urine Culture - Final Proteus vulgaris Complete 11/28/24 18:53 Blood Blood Culture - Final NO GROWTH AFTER 5 DAYS OF INCUBATION. Complete Labs and/or images reviewed: Labs reviewed by me, Image(s) reviewed by me Problem List/Assessment/Plan Problem List/Assessment/Plan Acute cholecystitis with intra-abdominal abscess and adhesions, status post open cholecystectomy Transaminitis, ruled out choledocholithiasis, cholangitis AFib, controlled rate Metabolic encephalopathy likely due to UTI UTI, complicated Pneumonia Gram-positive versus Gram-negative Atelectasis Hypothyroidism Diabetes Dyslipidemia Acute kidney injury due to VMN Thrombocytopenia likely secondary to chronic liver disease Bilateral renal cysts Bilateral kidney stones Plan: Liver enzymes are trending down, continue monitoring CMP MRCP revealed periportal edema, intrahepatic due to edema, acute cholecystitis, trace bilateral pleural effusion, right lower lung consolidation versus atelectasis Surgeon following, he performed open cholecystectomy on 12/03/2024 Continue Zosyn IV NPO for now, continue NG tube, we will follow surgery recommendations Goals of care were discussed for over 30 mins. FULL CODE. Case was discussed with Dr. Smith Plan discussed with: Patient, Other (RN) My Orders My Orders Orders - ENRIQUE QUINTANILLA RESIDENT Procedure Category Date Status Time Pt Request For Service PT 12/04/24 Logged 07:00 Up To Chair JEROMY 12/04/24 In Process 07:00 Sodium Chloride 0.9% PHA 12/03/24 In Process 18:45 Dietary Evaluation Review Recommendations by RD: Protein Supplementation Comments: 1) Initiate Ensure Clear bid while on clear liquid diet d/t poor PO intake. When upgrade to full liquid, consider Ensure Enlive bid. 2) Advance to 60g CCHO 2g Na diet when medically feasible. 3) Continue Zofran - encourage optimate PO intake 4) Consider staff to assist feeding d/t advanced age and AMS Expected Outcomes/Goals: 1) appetite and labs to improve 2) diet to advance 3) f/u in 3 days Date of Service: Dec 04, 2024 Billing Provider: RAMON SMITH MD Common Visit Codes: [id number] INP/OBS CARE(HIGH) ENRIQUE QUINTANILLA RESIDENT Dec 04, 2024 07:38 RAMON SMITH MD Dec 04, 2024 17:50
--- NOTE | 2024-12-04 18:41 | DVHPN2 ---
Progress Note Date Seen: Dec 04, 2024 Medical Necessity Reason Pt with a Central, PICC or Fol: No Objective vital signs Vital Sign Date Time Temp Pulse Resp B/P (MAP) Pulse Ox O2 Delivery O2 Flow Rate FiO2 12/04/24 17:47 97.4 85 16 136/73 (94) 90 97.4 12/04/24 12:11 Room Air 0.0 12/04/24 12:11 21 Total Intake and Output 12/03/24 12/03/24 12/04/24 15:00 23:00 07:00 Intake Total 200 ml 0 ml Output Total 115 ml Balance 200 ml -115 ml medications Current Medications Medications Dose Ordered Sig/Hernando Route Start Time Stop Time Status Last Admin Dose Admin Sodium Chloride 10 ml Q8HR IV 11/29/24 06:00 12/04/24 14:00 10 ML Ondansetron HCl 4 mg Q4HP PRN IV 11/28/24 22:15 12/03/24 17:37 4 MG Morphine Sulfate 2 mg Q4HPRN PRN IV 11/28/24 22:15 12/03/24 17:38 2 MG Pantoprazole Sodium 40 mg DAILY IV 11/28/24 23:45 12/04/24 09:20 40 MG Levothyroxine Sodium 50 mcg QAM@0600 PO 11/29/24 06:00 12/02/24 06:26 50 MCG Diltiazem HCl 180 mg DAILY PO 11/29/24 10:00 12/02/24 09:39 180 MG Diagnostic Test (Pha) 1 strip ACHS 11/29/24 07:00 12/04/24 17:22 1 STRIP Insulin Human Regular ACHS SC 11/29/24 07:00 12/04/24 17:22 3 UNITS Dextrose 50 ml UD PRN IV 11/29/24 00:15 Losartan Potassium 25 mg DAILY PO 11/30/24 10:00 12/02/24 09:39 25 MG Albuterol 2.5 mg Q6HWA NEB 11/30/24 06:00 12/04/24 12:11 2.5 MG Ipratropium [place] 0.5 mg Q6HWA NEB 11/30/24 06:00 12/04/24 12:11 0.5 MG Piperacillin Sod/ Tazobactam Sod 100 ml @ 25 mls/hr Q8H IV 11/30/24 20:00 12/04/24 11:44 25 MLS/HR Enoxaparin Sodium 90 mg Q12HR SC 12/02/24 22:00 Hold 12/02/24 22:37 90 MG Sodium Chloride 1,000 ml @ 75 mls/hr [id number] IV 12/03/24 18:45 12/03/24 23:29 75 MLS/HR laboratory and microbiology Laboratory Tests 12/04/24 06:02 12/02/24 06:08 Test 12/04/24 06:02 Range/Units Serum Glucose 209 H 74-106 mg/dL Microbiology Date/Time Source Procedure Growth Status 12/03/24 11:19 Other Gram Stain - Final Resulted 12/03/24 11:19 Other Anaerobic Culture - Preliminary Resulted 12/03/24 11:19 Other Aerobic Culture - Preliminary Resulted 11/28/24 20:30 Voided Urine Urine Culture - Final Proteus vulgaris Complete 11/28/24 18:53 Blood Blood Culture - Final NO GROWTH AFTER 5 DAYS OF INCUBATION. Complete Problem List/Assessment/Plan Problem List/Assessment/Plan AFEBRILE VSS ABD DISTENDED SOFT S/P OPEN CHOLECYSTECTOMY DRAIN 100 CC SEROSANGUINEOUS LFT TRENDING DOWN OP FINDINGS EXPLAINED KEEP NPO NG ALLOW ICE CHIPS CLOSE OBSERVATION REPEAT LABS AM Plan discussed with: Patient Dietary Evaluation Review Recommendations by RD: Protein Supplementation Comments: 1) Initiate Ensure Clear bid while on clear liquid diet d/t poor PO intake. When upgrade to full liquid, consider Ensure Enlive bid. 2) Advance to 60g CCHO 2g Na diet when medically feasible. 3) Continue Zofran - encourage optimate PO intake 4) Consider staff to assist feeding d/t advanced age and AMS Expected Outcomes/Goals: 1) appetite and labs to improve 2) diet to advance 3) f/u in 3 days LA POWERS MD Dec 04, 2024 18:41
[2024-12-05] VITALS (13 sets, daily range): BP systolic 111–146; BP diastolic 37–74; PULSE 46–128; RESP 16–19; TEMP 97.3–98.6; O2SAT 91–100
--- NOTE | 2024-12-05 06:31 | DVHPNRES ---
Progress Note Date Seen: Dec 05, 2024 Resident Creating Document: ENRIQUE QUINTANILLA RESIDENT Medical Necessity Reason Pt with a Central, PICC or Fol: No Subjective Review of Systems Patient was seen and examined at bedside. He states feeling well, denies any significant chest pain, shortness of breath, lightheadedness, nausea, vomiting, dizziness Alert and oriented x3. currently NPO, NG tube is draining yellow fluid, output was mL, HECTOR drain has sanguineous fluid, output was mL. Objective vital signs Vital Sign Date Time Temp Pulse Resp B/P (MAP) Pulse Ox O2 Delivery O2 Flow Rate FiO2 12/05/24 05:00 98.6 72 18 121/55 (77) 91 98.6 12/04/24 20:00 Room Air* 0 21 Total Intake and Output 12/04/24 12/04/24 12/05/24 15:00 23:00 07:00 Intake Total 1225 ml 250 ml 100 ml Output Total 130 ml Balance 1225 ml 120 ml 100 ml medications Current Medications Medications Dose Ordered Sig/Hernando Route Start Time Stop Time Status Last Admin Dose Admin Sodium Chloride 10 ml Q8HR IV 11/29/24 06:00 12/04/24 22:55 10 ML Ondansetron HCl 4 mg Q4HP PRN IV 11/28/24 22:15 12/03/24 17:37 4 MG Morphine Sulfate 2 mg Q4HPRN PRN IV 11/28/24 22:15 12/03/24 17:38 2 MG Pantoprazole Sodium 40 mg DAILY IV 11/28/24 23:45 12/04/24 09:20 40 MG Levothyroxine Sodium 50 mcg QAM@0600 PO 11/29/24 06:00 12/02/24 06:26 50 MCG Diltiazem HCl 180 mg DAILY PO 11/29/24 10:00 12/02/24 09:39 180 MG Diagnostic Test (Pha) 1 strip ACHS 11/29/24 07:00 12/04/24 22:00 1 STRIP Insulin Human Regular ACHS SC 11/29/24 07:00 12/04/24 22:55 3 UNITS Dextrose 50 ml UD PRN IV 11/29/24 00:15 Losartan Potassium 25 mg DAILY PO 11/30/24 10:00 12/02/24 09:39 25 MG Albuterol 2.5 mg Q6HWA NEB 11/30/24 06:00 12/04/24 18:59 2.5 MG Ipratropium [place] 0.5 mg Q6HWA NEB 11/30/24 06:00 12/04/24 18:59 0.5 MG Piperacillin Sod/ Tazobactam Sod 100 ml @ 25 mls/hr Q8H IV 11/30/24 20:00 12/05/24 03:45 25 MLS/HR Enoxaparin Sodium 90 mg Q12HR SC 12/02/24 22:00 Hold 12/02/24 22:37 90 MG Sodium Chloride 1,000 ml @ 75 mls/hr [id number] IV 12/03/24 18:45 12/03/24 23:29 75 MLS/HR Examination General: Awake, alert, comfortable appearing, in no acute distress. HEENT: Head is normocephalic and atraumatic. Pupils are equal, round, and reactive to light. Extraocular muscles are intact. No nasal discharge. No facial trauma. Intraoral exam shows moist mucous membranes with no tonsillar enlargement or exudate. Neck: Supple with no cervical lymphadenopathy No meningismus. No goiter. Heart: Regular rate without murmur, rub, or gallop. Lungs: Equal breath sounds bilaterally with no wheezing, rales, or rhonchi. There is no chest wall tenderness or instability. Abdomen: Bowel sounds are present. Abdomen is distended, HECTOR drain on right side, surgical scar due to open cholecystectomy, no signs of active infection. Extremities: Strong peripheral pulses. There is no clubbing, no cyanosis, and no edema. Skin: No rash. Neurologic: Cranial nerves II-XII intact without motor, sensory, or cerebellar deficit, no asterixis. laboratory and microbiology Laboratory Tests 12/04/24 06:02 12/02/24 06:08 Test 12/04/24 06:02 Range/Units Serum Glucose 209 H 74-106 mg/dL Microbiology Date/Time Source Procedure Growth Status 12/03/24 11:19 Other Gram Stain - Final Resulted 12/03/24 11:19 Other Anaerobic Culture - Preliminary Resulted 12/03/24 11:19 Other Aerobic Culture - Preliminary Resulted 11/28/24 20:30 Voided Urine Urine Culture - Final Proteus vulgaris Complete 11/28/24 18:53 Blood Blood Culture - Final NO GROWTH AFTER 5 DAYS OF INCUBATION. Complete Labs and/or images reviewed: Labs reviewed by me, Image(s) reviewed by me Problem List/Assessment/Plan Problem List/Assessment/Plan Acute cholecystitis with intra-abdominal abscess and adhesions, status post open cholecystectomy Transaminitis, ruled out choledocholithiasis, cholangitis AFib, controlled rate Metabolic encephalopathy likely due to UTI UTI, complicated Pneumonia Gram-positive versus Gram-negative Atelectasis Hypothyroidism Diabetes Dyslipidemia Acute kidney injury due to VMN Thrombocytopenia likely secondary to chronic liver disease Bilateral renal cysts Bilateral kidney stones Plan: Liver enzymes are trending down, continue monitoring CMP MRCP revealed periportal edema, intrahepatic due to edema, acute cholecystitis, trace bilateral pleural effusion, right lower lung consolidation versus atelectasis Surgeon following, he performed open cholecystectomy on 12/03/2024 Continue Zosyn IV NPO for now, only ice chips, continue NG tube, we will follow surgery recommendations KUB shows nonobstructive gas, large stool burden Goals of care were discussed for over 30 mins. FULL CODE. Case was discussed with Dr. Smith Plan discussed with: Patient, Other (RN) My Orders My Orders Orders - ENRIQUE QUINTANILLA RESIDENT Procedure Category Date Status Time Complete Blood Count LAB 12/05/24 Logged 04:00 Comprehensive LAB 12/05/24 Logged Metabolic Panel 04:00 Dietary Evaluation Review Recommendations by RD: Protein Supplementation Comments: 1) Initiate Ensure Clear bid while on clear liquid diet d/t poor PO intake. When upgrade to full liquid, consider Ensure Enlive bid. 2) Advance to 60g CCHO 2g Na diet when medically feasible. 3) Continue Zofran - encourage optimate PO intake 4) Consider staff to assist feeding d/t advanced age and AMS Expected Outcomes/Goals: 1) appetite and labs to improve 2) diet to advance 3) f/u in 3 days Date of Service: Dec 05, 2024 Billing Provider: RAMON SMITH MD Common Visit Codes: [id number] INP/OBS CARE(HIGH) ENRIQUE QUINTANILLA RESIDENT Dec 05, 2024 06:31 RAMON SMITH MD Dec 06, 2024 12:00
[2024-12-05 07:26] LABS: Hematocrit 34.2 % (41.0-53.0); Hemoglobin 11.5 g/dL (13.5-17.5); Mean Corpuscular Hemoglobin 31.4 pg (28.0-32.0); Mean Corpuscular Hgb Conc. 33.7 g/dL (32.0-36.0); Mean Corpuscular Volume 93.3 fL (80.0-100.0); Platelet Count (auto) 197 10^3/uL (140-450); Red Blood Cells 3.66 10^6/uL (4.5-5.90); Red Cell Distribution Width 14.8 % (11.8-14.3); White Blood Cell 12.1 10^3/uL (4.4-10.8)
[2024-12-05 07:34] LABS: Albumin 3.3 g/dL (3.2-4.8); Anion Gap 8 (5-15); BUN/Creatinine Ratio 27.4 (10.0-20.0); Bilirubin, Total 0.6 mg/dL (0.2-1.0); Blood Urea Nitrogen 20 mg/dL (9-23); Calcium 8.8 mg/dL (8.7-10.4); Carbon Dioxide 26 mmol/L (20-31); Sodium 142 mmol/L (136-145); Total Protein 5.8 g/dL (5.7-8.2)
[2024-12-05 07:37] LABS: Alanine Aminotransferase 241 U/L (7-40); Alkaline Phosphatase 265 U/L (46-116); Aspartate Aminotransferase 125 U/L (13-40); Chloride 108 mmol/L (98-107); Glucose 172 mg/dL (74-106)
[2024-12-05 07:53] LABS: Basophils % (manual) 0 (0.0-2.0); Blast Cells 0; Myelocytes % 0; Promyelocytes % 0; Reactive Lymphocytes 0
[2024-12-05 10:37] LABS: Band Neutrophils % (manual) 6; Eosinophils % (manual) 1 (0-7); Lymphocytes % (manual) 14 (10.0-50.0); Metamyelocytes % 4; Monocytes % (manual) 5 (0-12); Platelet Estimate Adequate
--- NOTE | 2024-12-05 14:23 | DVH ---
Date: 12/05/2024 01:12 PM Examination: XY KUB ABDOMEN SINGLE VIEW History: abd distension Comparison: None TECHNIQUE: Frontal views of the abdomen was obtained. FINDINGS: Bowel gas pattern is unremarkable. The lung bases are unremarkable. No acute osseous abnormality identified. Right surgical drain . NG tube in stomach IMPRESSION: Nonobstructive bowel gas pattern. Large stool burden
[2024-12-06] VITALS (15 sets, daily range): BP systolic 110–162; BP diastolic 68–78; PULSE 4–82; RESP 14–20; TEMP 97.5–98.5; O2SAT 91–100
--- NOTE | 2024-12-06 06:23 | DVHPNRES ---
Progress Note Date Seen: Dec 06, 2024 Resident Creating Document: ENRIQUE QUINTANILLA RESIDENT Medical Necessity Reason Pt with a Central, PICC or Fol: No Subjective Review of Systems Patient was seen and examined at bedside. He states feeling well, denies any significant chest pain, shortness of breath, lightheadedness, nausea, vomiting, dizziness Alert and oriented x3. currently NPO, NG tube is draining yellow fluid, output was 200 mL, HECTOR drain has sanguineous fluid, output was 80 mL. Objective vital signs Vital Sign Date Time Temp Pulse Resp B/P (MAP) Pulse Ox O2 Delivery O2 Flow Rate FiO2 12/06/24 06:16 4 20 96 12/06/24 06:16 Room Air* 0 21 12/06/24 05:00 97.5 162/78 (106) 97.5 Total Intake and Output 12/05/24 12/05/24 12/06/24 15:00 23:00 07:00 Intake Total 0 ml 100 ml Output Total 200 ml 80 ml Balance -200 ml 20 ml medications Current Medications Medications Dose Ordered Sig/Hernando Route Start Time Stop Time Status Last Admin Dose Admin Sodium Chloride 10 ml Q8HR IV 11/29/24 06:00 12/06/24 06:01 10 ML Ondansetron HCl 4 mg Q4HP PRN IV 11/28/24 22:15 12/03/24 17:37 4 MG Morphine Sulfate 2 mg Q4HPRN PRN IV 11/28/24 22:15 12/05/24 06:45 2 MG Pantoprazole Sodium 40 mg DAILY IV 11/28/24 23:45 12/05/24 10:39 40 MG Levothyroxine Sodium 50 mcg QAM@0600 PO 11/29/24 06:00 12/06/24 06:01 50 MCG Diltiazem HCl 180 mg DAILY PO 11/29/24 10:00 12/05/24 10:39 180 MG Diagnostic Test (Pha) 1 strip ACHS 11/29/24 07:00 12/05/24 21:57 1 STRIP Insulin Human Regular ACHS SC 11/29/24 07:00 12/05/24 21:56 2 UNITS Dextrose 50 ml UD PRN IV 11/29/24 00:15 Losartan Potassium 25 mg DAILY PO 11/30/24 10:00 12/05/24 10:38 25 MG Albuterol 2.5 mg Q6HWA NEB 11/30/24 06:00 12/06/24 06:16 2.5 MG Ipratropium [place] 0.5 mg Q6HWA NEB 11/30/24 06:00 12/06/24 06:16 0.5 MG Piperacillin Sod/ Tazobactam Sod 100 ml @ 25 mls/hr Q8H IV 11/30/24 20:00 12/06/24 04:31 25 MLS/HR Enoxaparin Sodium 90 mg Q12HR SC 12/02/24 22:00 Hold 12/02/24 22:37 90 MG Sodium Chloride 1,000 ml @ 75 mls/hr [id number] IV 12/03/24 18:45 12/05/24 12:31 75 MLS/HR Examination General: Awake, alert, comfortable appearing, in no acute distress. HEENT: Head is normocephalic and atraumatic. Pupils are equal, round, and reactive to light. Extraocular muscles are intact. No nasal discharge. No facial trauma. Intraoral exam shows moist mucous membranes with no tonsillar enlargement or exudate. Neck: Supple with no cervical lymphadenopathy No meningismus. No goiter. Heart: Regular rate without murmur, rub, or gallop. Lungs: Equal breath sounds bilaterally with no wheezing, rales, or rhonchi. There is no chest wall tenderness or instability. Abdomen: Bowel sounds are present. Abdomen is distended, HECTOR drain on right side, surgical scar due to open cholecystectomy, no signs of active infection. Extremities: Strong peripheral pulses. There is no clubbing, no cyanosis, and no edema. Skin: No rash. Neurologic: Cranial nerves II-XII intact without motor, sensory, or cerebellar deficit, no asterixis. laboratory and microbiology Laboratory Tests 12/05/24 05:53 Test 12/05/24 05:53 Range/Units Serum Glucose 172 H 74-106 mg/dL Microbiology Date/Time Source Procedure Growth Status 12/03/24 11:19 Other Gram Stain - Final Resulted 12/03/24 11:19 Other Anaerobic Culture - Preliminary Resulted 12/03/24 11:19 Other Aerobic Culture - Preliminary Resulted 11/28/24 20:30 Voided Urine Urine Culture - Final Proteus vulgaris Complete 11/28/24 18:53 Blood Blood Culture - Final NO GROWTH AFTER 5 DAYS OF INCUBATION. Complete Labs and/or images reviewed: Labs reviewed by me, Image(s) reviewed by me Problem List/Assessment/Plan Problem List/Assessment/Plan Acute cholecystitis with intra-abdominal abscess and adhesions, status post open cholecystectomy Transaminitis, ruled out choledocholithiasis, cholangitis AFib, controlled rate Metabolic encephalopathy likely due to UTI UTI, complicated Pneumonia Gram-positive versus Gram-negative Atelectasis Hypothyroidism Diabetes Dyslipidemia Acute kidney injury due to VMN Thrombocytopenia likely secondary to chronic liver disease Bilateral renal cysts Bilateral kidney stones Plan: Liver enzymes are trending down, continue monitoring CMP MRCP revealed periportal edema, intrahepatic due to edema, acute cholecystitis, trace bilateral pleural effusion, right lower lung consolidation versus atelectasis Surgeon following, he performed open cholecystectomy on 12/03/2024 Continue Zosyn IV NPO for now, only ice chips, continue NG tube, we will follow surgery recommendations KUB shows nonobstructive gas, large stool burden Restarted therapeutic lovenox Goals of care were discussed for over 30 mins. FULL CODE. Case was discussed with Dr. Smith Plan discussed with: Patient, Other (RN) My Orders My Orders Orders - ENRIQUE QUINTANILLA RESIDENT Procedure Category Date Status Time Kub Abdomen Single XY 12/05/24 Resulted View 12:36 Communication Order ORDERS 12/05/24 Transmitted 13:58 Comprehensive LAB 12/06/24 Logged Metabolic Panel 04:00 Dietary Evaluation Review Recommendations by RD: Protein Supplementation Comments: 1) Initiate Ensure Clear bid while on clear liquid diet d/t poor PO intake. When upgrade to full liquid, consider Ensure Enlive bid. 2) Advance to 60g CCHO 2g Na diet when medically feasible. 3) Continue Zofran - encourage optimate PO intake 4) Consider staff to assist feeding d/t advanced age and AMS Expected Outcomes/Goals: 1) appetite and labs to improve 2) diet to advance 3) f/u in 3 days Date of Service: Dec 06, 2024 Billing Provider: RAMON SMITH MD Common Visit Codes: [id number] INP/OBS CARE(HIGH) ENRIQUE QUINTANILLA RESIDENT Dec 06, 2024 06:23 RAMON SMITH MD Dec 06, 2024 17:16
[2024-12-06 07:09] LABS: Albumin 3.5 g/dL (3.2-4.8); Anion Gap 7 (5-15); BUN/Creatinine Ratio 22.4 (10.0-20.0); Bilirubin, Total 0.6 mg/dL (0.2-1.0); Blood Urea Nitrogen 17 mg/dL (9-23); Calcium 8.9 mg/dL (8.7-10.4); Carbon Dioxide 29 mmol/L (20-31); Chloride 107 mmol/L (98-107); Potassium 3.8 mmol/L (3.5-5.1); Sodium 143 mmol/L (136-145)
[2024-12-06 07:11] LABS: Alanine Aminotransferase 239 U/L (7-40); Alkaline Phosphatase 258 U/L (46-116); Aspartate Aminotransferase 117 U/L (13-40); Glucose 150 mg/dL (74-106)
[2024-12-06] MEDS: ENOXAPARIN SOD 100 MG/1 ML SYRINGE SC ONE (11:17)
[2024-12-06] MEDS ORDERED: GASTROGRAFIN 120 ML SOL ONE (12:29)
--- NOTE | 2024-12-06 12:37 | DVHPN2 ---
Progress Note Date Seen: Dec 05, 2024 Medical Necessity Reason Pt with a Central, PICC or Fol: No Objective vital signs Vital Sign Date Time Temp Pulse Resp B/P (MAP) Pulse Ox O2 Delivery O2 Flow Rate FiO2 12/06/24 11:37 79 16 100 12/06/24 11:29 Nasal Cannula* 2 28 12/06/24 11:17 156/75 12/06/24 05:00 97.5 97.5 Total Intake and Output 12/05/24 12/05/24 12/06/24 15:00 23:00 07:00 Intake Total 0 ml 100 ml Output Total 200 ml 80 ml Balance -200 ml 20 ml medications Current Medications Medications Dose Ordered Sig/Hernando Route Start Time Stop Time Status Last Admin Dose Admin Sodium Chloride 10 ml Q8HR IV 11/29/24 06:00 12/06/24 06:01 10 ML Ondansetron HCl 4 mg Q4HP PRN IV 11/28/24 22:15 12/03/24 17:37 4 MG Morphine Sulfate 2 mg Q4HPRN PRN IV 11/28/24 22:15 12/05/24 06:45 2 MG Pantoprazole Sodium 40 mg DAILY IV 11/28/24 23:45 12/06/24 11:18 40 MG Levothyroxine Sodium 50 mcg QAM@0600 PO 11/29/24 06:00 12/06/24 06:01 50 MCG Diltiazem HCl 180 mg DAILY PO 11/29/24 10:00 12/06/24 11:17 180 MG Diagnostic Test (Pha) 1 strip ACHS 11/29/24 07:00 12/06/24 11:31 1 STRIP Insulin Human Regular ACHS SC 11/29/24 07:00 12/06/24 06:24 2 UNITS Dextrose 50 ml UD PRN IV 11/29/24 00:15 Losartan Potassium 25 mg DAILY PO 11/30/24 10:00 12/06/24 11:16 25 MG Albuterol 2.5 mg Q6HWA NEB 11/30/24 06:00 12/06/24 11:28 2.5 MG Ipratropium [place] 0.5 mg Q6HWA NEB 11/30/24 06:00 12/06/24 11:28 0.5 MG Piperacillin Sod/ Tazobactam Sod 100 ml @ 25 mls/hr Q8H IV 11/30/24 20:00 12/06/24 11:32 25 MLS/HR Sodium Chloride 1,000 ml @ 75 mls/hr [id number] IV 12/03/24 18:45 12/05/24 12:31 75 MLS/HR Enoxaparin Sodium 100 mg Q12HR SC 12/06/24 22:00 laboratory and microbiology Laboratory Tests 12/06/24 05:30 12/05/24 05:53 Test 12/06/24 05:30 Range/Units Serum Glucose 150 H 74-106 mg/dL Microbiology Date/Time Source Procedure Growth Status 12/03/24 11:19 Other Gram Stain - Final Resulted 12/03/24 11:19 Other Anaerobic Culture - Preliminary Resulted 12/03/24 11:19 Other Aerobic Culture - Preliminary Resulted 11/28/24 20:30 Voided Urine Urine Culture - Final Proteus vulgaris Complete 11/28/24 18:53 Blood Blood Culture - Final NO GROWTH AFTER 5 DAYS OF INCUBATION. Complete Problem List/Assessment/Plan Problem List/Assessment/Plan AFEBRILE VSS ABD DISTENDED SOFT S/P OPEN CHOLECYSTECTOMY DRAIN 500 CC SEROSANGUINEOUS LFT TRENDING DOWN OP FINDINGS EXPLAINED KEEP NPO NG ALLOW ICE CHIPS CLOSE OBSERVATION REPEAT LABS AM Plan discussed with: Patient Dietary Evaluation Review Recommendations by RD: Protein Supplementation Comments: 1) Initiate Ensure Clear bid while on clear liquid diet d/t poor PO intake. When upgrade to full liquid, consider Ensure Enlive bid. 2) Advance to 60g CCHO 2g Na diet when medically feasible. 3) Continue Zofran - encourage optimate PO intake 4) Consider staff to assist feeding d/t advanced age and AMS Expected Outcomes/Goals: 1) appetite and labs to improve 2) diet to advance 3) f/u in 3 days LA POWERS MD Dec 06, 2024 12:37
--- NOTE | 2024-12-06 12:40 | DVHPN2 ---
Progress Note Date Seen: Dec 06, 2024 Medical Necessity Reason Pt with a Central, PICC or Fol: No Objective vital signs Vital Sign Date Time Temp Pulse Resp B/P (MAP) Pulse Ox O2 Delivery O2 Flow Rate FiO2 12/06/24 11:37 79 16 100 12/06/24 11:29 Nasal Cannula* 2 28 12/06/24 11:17 156/75 12/06/24 05:00 97.5 97.5 Total Intake and Output 12/05/24 12/05/24 12/06/24 15:00 23:00 07:00 Intake Total 0 ml 100 ml Output Total 200 ml 80 ml Balance -200 ml 20 ml medications Current Medications Medications Dose Ordered Sig/Hernando Route Start Time Stop Time Status Last Admin Dose Admin Sodium Chloride 10 ml Q8HR IV 11/29/24 06:00 12/06/24 06:01 10 ML Ondansetron HCl 4 mg Q4HP PRN IV 11/28/24 22:15 12/03/24 17:37 4 MG Morphine Sulfate 2 mg Q4HPRN PRN IV 11/28/24 22:15 12/05/24 06:45 2 MG Pantoprazole Sodium 40 mg DAILY IV 11/28/24 23:45 12/06/24 11:18 40 MG Levothyroxine Sodium 50 mcg QAM@0600 PO 11/29/24 06:00 12/06/24 06:01 50 MCG Diltiazem HCl 180 mg DAILY PO 11/29/24 10:00 12/06/24 11:17 180 MG Diagnostic Test (Pha) 1 strip ACHS 11/29/24 07:00 12/06/24 11:31 1 STRIP Insulin Human Regular ACHS SC 11/29/24 07:00 12/06/24 06:24 2 UNITS Dextrose 50 ml UD PRN IV 11/29/24 00:15 Losartan Potassium 25 mg DAILY PO 11/30/24 10:00 12/06/24 11:16 25 MG Albuterol 2.5 mg Q6HWA NEB 11/30/24 06:00 12/06/24 11:28 2.5 MG Ipratropium [place] 0.5 mg Q6HWA NEB 11/30/24 06:00 12/06/24 11:28 0.5 MG Piperacillin Sod/ Tazobactam Sod 100 ml @ 25 mls/hr Q8H IV 11/30/24 20:00 12/06/24 11:32 25 MLS/HR Sodium Chloride 1,000 ml @ 75 mls/hr [id number] IV 12/03/24 18:45 12/05/24 12:31 75 MLS/HR Enoxaparin Sodium 100 mg Q12HR SC 12/06/24 22:00 laboratory and microbiology Laboratory Tests 12/06/24 05:30 12/05/24 05:53 Test 12/06/24 05:30 Range/Units Serum Glucose 150 H 74-106 mg/dL Microbiology Date/Time Source Procedure Growth Status 12/03/24 11:19 Other Gram Stain - Final Resulted 12/03/24 11:19 Other Anaerobic Culture - Preliminary Resulted 12/03/24 11:19 Other Aerobic Culture - Preliminary Resulted 11/28/24 20:30 Voided Urine Urine Culture - Final Proteus vulgaris Complete 11/28/24 18:53 Blood Blood Culture - Final NO GROWTH AFTER 5 DAYS OF INCUBATION. Complete Problem List/Assessment/Plan Problem List/Assessment/Plan AFEBRILE VSS ABD LESS DISTENDED SOFT NO BM NO FLATUS SEC TO ILEUS S/P OPEN CHOLECYSTECTOMY DRAIN 50 CC SEROSANGUINEOUS LFT TRENDING DOWN OP FINDINGS EXPLAINED KEEP NPO NG ALLOW ICE CHIPS CLOSE OBSERVATION REPEAT LABS AM Plan discussed with: Patient Dietary Evaluation Review Recommendations by RD: Protein Supplementation Comments: 1) Initiate Ensure Clear bid while on clear liquid diet d/t poor PO intake. When upgrade to full liquid, consider Ensure Enlive bid. 2) Advance to 60g CCHO 2g Na diet when medically feasible. 3) Continue Zofran - encourage optimate PO intake 4) Consider staff to assist feeding d/t advanced age and AMS Expected Outcomes/Goals: 1) appetite and labs to improve 2) diet to advance 3) f/u in 3 days LA POWERS MD Dec 06, 2024 12:40
--- NOTE | 2024-12-06 20:36 | DVH ---
Procedure: XY SMALL BOWEL SERIES-W GASTROGRA Reason for study/Clinical History: SBO; NO PASSING GAS, NO BM Comparison Study: None available at time of dictation. Technique: Single contrast small bowel series performed. Findings:: Initial special collections librarian view of the abdomen and pelvis appears demonstrates no acute process. Contrast is identified within the colon by 100 minutes This represents a slightly retarded transit ti me. . IMPRESSION: 1. Probable small bowel ileus
[2024-12-06] MEDS: ENOXAPARIN SOD 100 MG/1 ML SYRINGE SC SCH (21:47)
[2024-12-07] VITALS (14 sets, daily range): BP systolic 137–149; BP diastolic 65–78; PULSE 67–76; RESP 14–18; TEMP 97.4–98.5; O2SAT 90–100
[2024-12-07 07:41] LABS: Albumin 3.6 g/dL (3.2-4.8); Anion Gap 10 (5-15); BUN/Creatinine Ratio 18.6 (10.0-20.0); Blood Urea Nitrogen 13 mg/dL (9-23); Calcium 8.9 mg/dL (8.7-10.4); Carbon Dioxide 24 mmol/L (20-31); Chloride 106 mmol/L (98-107); Sodium 140 mmol/L (136-145); Total Protein 6.1 g/dL (5.7-8.2)
[2024-12-07 07:42] LABS: Bilirubin, Total 0.7 mg/dL (0.2-1.0)
[2024-12-07 07:55] LABS: Alanine Aminotransferase 204 U/L (7-40); Alkaline Phosphatase 253 U/L (46-116); Aspartate Aminotransferase 90 U/L (13-40); Glucose 128 mg/dL (74-106)
--- NOTE | 2024-12-07 09:12 | DVHPN2 ---
Progress Note Date Seen: Dec 07, 2024 Medical Necessity Reason Pt with a Central, PICC or Fol: No Objective vital signs Vital Sign Date Time Temp Pulse Resp B/P (MAP) Pulse Ox O2 Delivery O2 Flow Rate FiO2 12/07/24 08:49 70 16 100 12/07/24 08:41 Room Air 0.0 12/07/24 08:41 21 12/07/24 05:00 98.5 149/73 (98) 98.5 Total Intake and Output 12/06/24 12/06/24 12/07/24 15:00 23:00 07:00 Intake Total 150 ml 200 ml 560 ml Output Total 730 ml 40 ml Balance -580 ml 160 ml 560 ml medications Current Medications Medications Dose Ordered Sig/Hernando Route Start Time Stop Time Status Last Admin Dose Admin Sodium Chloride 10 ml Q8HR IV 11/29/24 06:00 12/07/24 06:51 10 ML Ondansetron HCl 4 mg Q4HP PRN IV 11/28/24 22:15 12/03/24 17:37 4 MG Morphine Sulfate 2 mg Q4HPRN PRN IV 11/28/24 22:15 12/05/24 06:45 2 MG Pantoprazole Sodium 40 mg DAILY IV 11/28/24 23:45 12/06/24 11:18 40 MG Levothyroxine Sodium 50 mcg QAM@0600 PO 11/29/24 06:00 12/06/24 06:01 50 MCG Diltiazem HCl 180 mg DAILY PO 11/29/24 10:00 12/06/24 11:17 180 MG Diagnostic Test (Pha) 1 strip ACHS 11/29/24 07:00 12/07/24 06:50 1 STRIP Insulin Human Regular ACHS SC 11/29/24 07:00 12/06/24 06:24 2 UNITS Dextrose 50 ml UD PRN IV 11/29/24 00:15 Losartan Potassium 25 mg DAILY PO 11/30/24 10:00 12/06/24 11:16 25 MG Albuterol 2.5 mg Q6HWA NEB 11/30/24 06:00 12/07/24 08:41 2.5 MG Ipratropium [place] 0.5 mg Q6HWA NEB 11/30/24 06:00 12/07/24 08:41 0.5 MG Piperacillin Sod/ Tazobactam Sod 100 ml @ 25 mls/hr Q8H IV 11/30/24 20:00 12/07/24 04:09 25 MLS/HR Sodium Chloride 1,000 ml @ 75 mls/hr [id number] IV 12/03/24 18:45 12/07/24 04:21 75 MLS/HR Enoxaparin Sodium 100 mg Q12HR SC 12/06/24 22:00 12/06/24 21:47 100 MG laboratory and microbiology Laboratory Tests 12/07/24 06:37 12/05/24 05:53 Test 12/07/24 06:37 Range/Units Serum Glucose 128 H 74-106 mg/dL Microbiology Date/Time Source Procedure Growth Status 12/03/24 11:19 Other Gram Stain - Final Resulted 12/03/24 11:19 Other Anaerobic Culture - Preliminary Resulted 12/03/24 11:19 Other Aerobic Culture - Preliminary Resulted 11/28/24 20:30 Voided Urine Urine Culture - Final Proteus vulgaris Complete 11/28/24 18:53 Blood Blood Culture - Final NO GROWTH AFTER 5 DAYS OF INCUBATION. Complete Problem List/Assessment/Plan Problem List/Assessment/Plan AFEBRILE VSS NO BM NO FLATUS SEC TO ILEUS S/P OPEN CHOLECYSTECTOMY DRAIN 80 CC SEROSANGUINEOUS LFT TRENDING DOWN KEEP NPO NG ALLOW ICE CHIPS CLOSE OBSERVATION REPEAT LABS AM Plan discussed with: Other My Orders My Orders Orders - LA POWERS MD Procedure Category Date Status Time Communication Order ORDERS 12/06/24 Transmitted 13:15 Small Bowel Series-W XY 12/06/24 Resulted Gastrogra 13:21 Dietary Evaluation Review Recommendations by RD: Protein Supplementation Comments: 1) Initiate Ensure Clear bid while on clear liquid diet d/t poor PO intake. When upgrade to full liquid, consider Ensure Enlive bid. 2) Advance to 60g CCHO 2g Na diet when medically feasible. 3) Continue Zofran - encourage optimate PO intake 4) Consider staff to assist feeding d/t advanced age and AMS Expected Outcomes/Goals: 1) appetite and labs to improve 2) diet to advance 3) f/u in 3 days LA POWERS MD Dec 07, 2024 09:12
--- NOTE | 2024-12-07 10:34 | DVHPNRES ---
Progress Note Date Seen: Dec 07, 2024 Resident Creating Document: ENRIQUE QUINTANILLA RESIDENT Medical Necessity Reason Pt with a Central, PICC or Fol: No Subjective Review of Systems Patient was seen and examined at bedside. He states feeling well, denies any significant chest pain, shortness of breath, lightheadedness, nausea, vomiting, dizziness Alert and oriented x3. currently NPO, NG tube is draining yellow fluid, HECTOR drain has sanguineous fluid Small bowel series resulted in ileus, no obstruction Objective vital signs Vital Sign Date Time Temp Pulse Resp B/P (MAP) Pulse Ox O2 Delivery O2 Flow Rate FiO2 12/07/24 09:00 97.4 71 18 148/68 (94) 90 97.4 12/07/24 08:41 Room Air 0.0 12/07/24 08:41 21 Total Intake and Output 12/06/24 12/06/24 12/07/24 15:00 23:00 07:00 Intake Total 150 ml 200 ml 560 ml Output Total 730 ml 40 ml Balance -580 ml 160 ml 560 ml medications Current Medications Medications Dose Ordered Sig/[place]ando Route Start Time Stop Time Status Last Admin Dose Admin Sodium Chloride 10 ml Q8HR IV 11/29/24 06:00 12/07/24 06:51 10 ML Ondansetron HCl 4 mg Q4HP PRN IV 11/28/24 22:15 12/03/24 17:37 4 MG Morphine Sulfate 2 mg Q4HPRN PRN IV 11/28/24 22:15 12/05/24 06:45 2 MG Pantoprazole Sodium 40 mg DAILY IV 11/28/24 23:45 12/07/24 09:25 40 MG Levothyroxine Sodium 50 mcg QAM@0600 PO 11/29/24 06:00 12/06/24 06:01 50 MCG Diltiazem HCl 180 mg DAILY PO 11/29/24 10:00 12/06/24 11:17 180 MG Diagnostic Test (Pha) 1 strip ACHS 11/29/24 07:00 12/07/24 06:50 1 STRIP Insulin Human Regular ACHS SC 11/29/24 07:00 12/06/24 06:24 2 UNITS Dextrose 50 ml UD PRN IV 11/29/24 00:15 Losartan Potassium 25 mg DAILY PO 11/30/24 10:00 12/06/24 11:16 25 MG Albuterol 2.5 mg Q6HWA NEB 11/30/24 06:00 12/07/24 08:41 2.5 MG Ipratropium [place] 0.5 mg Q6HWA NEB 11/30/24 06:00 12/07/24 08:41 0.5 MG Piperacillin Sod/ Tazobactam Sod 100 ml @ 25 mls/hr Q8H IV 11/30/24 20:00 12/07/24 04:09 25 MLS/HR Sodium Chloride 1,000 ml @ 75 mls/hr [id number] IV 12/03/24 18:45 12/07/24 04:21 75 MLS/HR Enoxaparin Sodium 100 mg Q12HR SC 12/06/24 22:00 12/07/24 09:25 100 MG Examination General: Awake, alert, comfortable appearing, in no acute distress. HEENT: Head is normocephalic and atraumatic. Pupils are equal, round, and reactive to light. Extraocular muscles are intact. No nasal discharge. No facial trauma. Intraoral exam shows moist mucous membranes with no tonsillar enlargement or exudate. Neck: Supple with no cervical lymphadenopathy No meningismus. No goiter. Heart: Regular rate without murmur, rub, or gallop. Lungs: Equal breath sounds bilaterally with no wheezing, rales, or rhonchi. There is no chest wall tenderness or instability. Abdomen: Bowel sounds are present. Abdomen is distended, HECTOR drain on right side, surgical scar due to open cholecystectomy, no signs of active infection. Extremities: Strong peripheral pulses. There is no clubbing, no cyanosis, and no edema. Skin: No rash. Neurologic: Cranial nerves II-XII intact without motor, sensory, or cerebellar deficit, no asterixis. laboratory and microbiology Laboratory Tests 12/07/24 06:37 12/05/24 05:53 Test 12/07/24 06:37 Range/Units Serum Glucose 128 H 74-106 mg/dL Microbiology Date/Time Source Procedure Growth Status 12/03/24 11:19 Other Gram Stain - Final Resulted 12/03/24 11:19 Other Anaerobic Culture - Preliminary Resulted 12/03/24 11:19 Other Aerobic Culture - Preliminary Resulted 11/28/24 20:30 Voided Urine Urine Culture - Final Proteus vulgaris Complete 11/28/24 18:53 Blood Blood Culture - Final NO GROWTH AFTER 5 DAYS OF INCUBATION. Complete Labs and/or images reviewed: Labs reviewed by me, Image(s) reviewed by me Problem List/Assessment/Plan Problem List/Assessment/Plan Acute cholecystitis with intra-abdominal abscess and adhesions, status post open cholecystectomy Transaminitis, ruled out choledocholithiasis, cholangitis AFib, controlled rate Metabolic encephalopathy likely due to UTI UTI, complicated Pneumonia Gram-positive versus Gram-negative Atelectasis Hypothyroidism Diabetes Dyslipidemia Acute kidney injury due to VMN Thrombocytopenia likely secondary to chronic liver disease Bilateral renal cysts Bilateral kidney stones Plan: Liver enzymes are trending down, continue monitoring CMP MRCP revealed periportal edema, intrahepatic due to edema, acute cholecystitis, trace bilateral pleural effusion, right lower lung consolidation versus atelectasis Surgeon following, he performed open cholecystectomy on 12/03/2024 Continue Zosyn IV NPO for now, only ice chips, continue NG tube, we will follow surgery recommendations KUB shows nonobstructive gas, large stool burden Restarted therapeutic lovenox Small-bowel series demonstrated ileus, no obstruction Goals of care were discussed for over 30 mins. FULL CODE. Case was discussed with Dr. Smith Plan discussed with: Patient, Other (RN) My Orders My Orders Orders - ENRIQUE QUINTANILLA RESIDENT Procedure Category Date Status Time Enoxaparin Sodium PHA 12/06/24 In Process (Lovenox) 22:00 Dietary Evaluation Review Recommendations by RD: Protein Supplementation Comments: 1) Initiate Ensure Clear bid while on clear liquid diet d/t poor PO intake. When upgrade to full liquid, consider Ensure Enlive bid. 2) Advance to 60g CCHO 2g Na diet when medically feasible. 3) Continue Zofran - encourage optimate PO intake 4) Consider staff to assist feeding d/t advanced age and AMS Expected Outcomes/Goals: 1) appetite and labs to improve 2) diet to advance 3) f/u in 3 days Date of Service: Dec 07, 2024 Billing Provider: RAMON SMITH MD Common Visit Codes: [id number] INP/OBS CARE(HIGH) ENRIQUE QUINTANILLA RESIDENT Dec 07, 2024 10:34 RAMON SMITH MD Dec 07, 2024 16:55
[2024-12-08] VITALS (14 sets, daily range): BP systolic 105–156; BP diastolic 48–67; PULSE 60–81; RESP 16–18; TEMP 96.4–97.8; O2SAT 93–100
[2024-12-08 07:49] LABS: Alanine Aminotransferase 147 U/L (7-40); Albumin 3.4 g/dL (3.2-4.8); Alkaline Phosphatase 209 U/L (46-116); Anion Gap 10 (5-15); BUN/Creatinine Ratio 15.9 (10.0-20.0); Blood Urea Nitrogen 10 mg/dL (9-23); Calcium 8.5 mg/dL (8.7-10.4); Carbon Dioxide 23 mmol/L (20-31); Chloride 106 mmol/L (98-107); Glucose 109 mg/dL (74-106); Potassium 3.5 mmol/L (3.5-5.1); Sodium 139 mmol/L (136-145); Total Protein 5.8 g/dL (5.7-8.2)
[2024-12-08 07:50] LABS: Aspartate Aminotransferase 59 U/L (13-40); Bilirubin, Total 0.7 mg/dL (0.2-1.0)
--- NOTE | 2024-12-08 07:56 | DVHPNRES ---
Progress Note Date Seen: Dec 08, 2024 Resident Creating Document: ENRIQUE QUINTANILLA RESIDENT Medical Necessity Reason Pt with a Central, PICC or Fol: No Subjective Review of Systems Patient was seen and examined at bedside. He states feeling well, denies any significant chest pain, shortness of breath, lightheadedness, nausea, vomiting, dizziness Alert and oriented x3. currently NPO, NG tube is draining yellow fluid, HECTOR drain has sanguineous fluid Abdomen appears less distended, significant bowel sounds, no bowel movement yet. Objective vital signs Vital Sign Date Time Temp Pulse Resp B/P (MAP) Pulse Ox O2 Delivery O2 Flow Rate FiO2 12/08/24 06:46 63 17 100 12/08/24 06:40 Room Air* 0 21 12/08/24 05:00 97.6 149/67 (94) 97.6 Total Intake and Output 12/07/24 12/07/24 12/08/24 15:00 23:00 07:00 Intake Total 100 ml 100 ml 200 ml Output Total 1400 ml 700 ml Balance -1300 ml -600 ml 200 ml medications Current Medications Medications Dose Ordered Sig/[place] Route Start Time Stop Time Status Last Admin Dose Admin Sodium Chloride 10 ml Q8HR IV 11/29/24 06:00 12/08/24 05:49 10 ML Ondansetron HCl 4 mg Q4HP PRN IV 11/28/24 22:15 12/03/24 17:37 4 MG Pantoprazole Sodium 40 mg DAILY IV 11/28/24 23:45 12/07/24 09:25 40 MG Levothyroxine Sodium 50 mcg QAM@0600 PO 11/29/24 06:00 12/06/24 06:01 50 MCG Diltiazem HCl 180 mg DAILY PO 11/29/24 10:00 12/06/24 11:17 180 MG Diagnostic Test (Pha) 1 strip ACHS 11/29/24 07:00 12/08/24 05:50 1 STRIP Insulin Human Regular ACHS SC 11/29/24 07:00 12/07/24 11:25 2 UNITS Dextrose 50 ml UD PRN IV 11/29/24 00:15 Losartan Potassium 25 mg DAILY PO 11/30/24 10:00 12/06/24 11:16 25 MG Albuterol 2.5 mg Q6HWA NEB 11/30/24 06:00 12/08/24 06:39 2.5 MG Ipratropium [place] 0.5 mg Q6HWA NEB 11/30/24 06:00 12/08/24 06:40 0.5 MG Piperacillin Sod/ Tazobactam Sod 100 ml @ 25 mls/hr Q8H IV 11/30/24 20:00 12/08/24 03:30 25 MLS/HR Sodium Chloride 1,000 ml @ 75 mls/hr [id number] IV 12/03/24 18:45 12/08/24 05:52 75 MLS/HR Enoxaparin Sodium 100 mg Q12HR SC 12/06/24 22:00 12/07/24 20:22 100 MG Metoclopramide HCl 10 mg Q8HR IV 12/08/24 14:00 UNV Examination General: Awake, alert, comfortable appearing, in no acute distress. HEENT: Head is normocephalic and atraumatic. Pupils are equal, round, and reactive to light. Extraocular muscles are intact. No nasal discharge. No facial trauma. Intraoral exam shows moist mucous membranes with no tonsillar enlargement or exudate. Neck: Supple with no cervical lymphadenopathy No meningismus. No goiter. Heart: Regular rate without murmur, rub, or gallop. Lungs: Equal breath sounds bilaterally with no wheezing, rales, or rhonchi. There is no chest wall tenderness or instability. Abdomen: Bowel sounds are present. Abdomen is distended, HECTOR drain on right side, surgical scar due to open cholecystectomy, no signs of active infection. Extremities: Strong peripheral pulses. There is no clubbing, no cyanosis, and no edema. Skin: No rash. Neurologic: Cranial nerves II-XII intact without motor, sensory, or cerebellar deficit, no asterixis. laboratory and microbiology Laboratory Tests 12/08/24 06:39 12/05/24 05:53 Test 12/08/24 06:39 Range/Units Serum Glucose 109 H 74-106 mg/dL Microbiology Date/Time Source Procedure Growth Status 12/03/24 11:19 Other Gram Stain - Final Resulted 12/03/24 11:19 Other Anaerobic Culture - Preliminary Resulted 12/03/24 11:19 Other Aerobic Culture - Preliminary Resulted 11/28/24 20:30 Voided Urine Urine Culture - Final Proteus vulgaris Complete 11/28/24 18:53 Blood Blood Culture - Final NO GROWTH AFTER 5 DAYS OF INCUBATION. Complete Labs and/or images reviewed: Labs reviewed by me, Image(s) reviewed by me Problem List/Assessment/Plan Problem List/Assessment/Plan Acute cholecystitis with intra-abdominal abscess and adhesions, status post open cholecystectomy Ileus Transaminitis, ruled out choledocholithiasis, cholangitis AFib, controlled rate Metabolic encephalopathy likely due to UTI UTI, complicated Pneumonia Gram-positive versus Gram-negative Atelectasis Hypothyroidism Diabetes Dyslipidemia Acute kidney injury due to VMN Thrombocytopenia likely secondary to chronic liver disease Bilateral renal cysts Bilateral kidney stones Plan: Liver enzymes are trending down, continue monitoring CMP MRCP revealed periportal edema, intrahepatic due to edema, acute cholecystitis, trace bilateral pleural effusion, right lower lung consolidation versus atelectasis Surgeon following, he performed open cholecystectomy on 12/03/2024 Continue Zosyn IV NPO for now, only ice chips, continue NG tube, we will follow surgery recommendations KUB shows nonobstructive gas, large stool burden Continue therapeutic lovenox Small-bowel series demonstrated ileus, no obstruction Reglan 20 mg IV once, reglan 5mg iv tid Goals of care were discussed for over 30 mins. FULL CODE. Case was discussed with Dr. Smith Plan discussed with: Patient, Other (RN) My Orders My Orders Orders - ENRIQUE QUINTANILLA RESIDENT Procedure Category Date Status Time Metoclopramide PHA 12/08/24 Logged Injection (Reglan 14:00 Metoclopramide PHA 12/08/24 Logged Injection (Reglan 07:45 Dietary Evaluation Review Recommendations by RD: Protein Supplementation Comments: 1) Initiate Ensure Clear bid while on clear liquid diet d/t poor PO intake. When upgrade to full liquid, consider Ensure Enlive bid. 2) Advance to 60g CCHO 2g Na diet when medically feasible. 3) Continue Zofran - encourage optimate PO intake 4) Consider staff to assist feeding d/t advanced age and AMS Expected Outcomes/Goals: 1) appetite and labs to improve 2) diet to advance 3) f/u in 3 days Date of Service: Dec 08, 2024 Billing Provider: RAMON SMITH MD Common Visit Codes: [id number] INP/OBS CARE(MOD) ENRIQUE QUINTANILLA RESIDENT Dec 08, 2024 07:56 RAMON SMITH MD Dec 08, 2024 14:47
[2024-12-08] MEDS: METOCLOPRAMIDE HCL 5MG/ml INJ 2ml VIAL IV ONE (09:08)
[2024-12-08] MEDS: METOCLOPRAMIDE HCL 5MG/ml INJ 2ml VIAL IV SCH (13:46)
[2024-12-08] MEDS ORDERED: METOCLOPRAMIDE HCL 5MG/ml INJ 2ml VIAL IV SCH (14:00)
--- NOTE | 2024-12-08 21:16 | DVHPN2 ---
Progress Note Date Seen: Dec 08, 2024 Medical Necessity Reason Pt with a Central, PICC or Fol: No Objective vital signs Vital Sign Date Time Temp Pulse Resp B/P (MAP) Pulse Ox O2 Delivery O2 Flow Rate FiO2 12/08/24 21:00 97.8 81 17 136/50 (78) 96 97.8 12/08/24 20:00 Room Air* 0 21 Total Intake and Output 12/07/24 12/07/24 12/08/24 15:00 23:00 07:00 Intake Total 100 ml 100 ml 200 ml Output Total 1400 ml 700 ml Balance -1300 ml -600 ml 200 ml medications Current Medications Medications Dose Ordered Sig/[place] Route Start Time Stop Time Status Last Admin Dose Admin Sodium Chloride 10 ml Q8HR IV 11/29/24 06:00 12/08/24 13:49 10 ML Ondansetron HCl 4 mg Q4HP PRN IV 11/28/24 22:15 12/03/24 17:37 4 MG Pantoprazole Sodium 40 mg DAILY IV 11/28/24 23:45 12/08/24 10:15 40 MG Levothyroxine Sodium 50 mcg QAM@0600 PO 11/29/24 06:00 12/06/24 06:01 50 MCG Diltiazem HCl 180 mg DAILY PO 11/29/24 10:00 12/08/24 09:09 180 MG Diagnostic Test (Pha) 1 strip ACHS 11/29/24 07:00 12/08/24 16:33 1 STRIP Insulin Human Regular ACHS SC 11/29/24 07:00 12/08/24 11:26 2 UNITS Dextrose 50 ml UD PRN IV 11/29/24 00:15 Losartan Potassium 25 mg DAILY PO 11/30/24 10:00 12/08/24 09:10 25 MG Albuterol 2.5 mg Q6HWA NEB 11/30/24 06:00 12/08/24 17:50 2.5 MG Ipratropium [place] 0.5 mg Q6HWA NEB 11/30/24 06:00 12/08/24 17:50 0.5 MG Piperacillin Sod/ Tazobactam Sod 100 ml @ 25 mls/hr Q8H IV 11/30/24 20:00 12/08/24 20:01 25 MLS/HR Sodium Chloride 1,000 ml @ 75 mls/hr [id number] IV 12/03/24 18:45 12/08/24 05:52 75 MLS/HR Metoclopramide HCl 5 mg Q8HR IV 12/08/24 14:00 12/08/24 13:46 5 MG Enoxaparin Sodium 90 mg Q12HR SC 12/08/24 22:00 laboratory and microbiology Laboratory Tests 12/08/24 06:39 12/05/24 05:53 Test 12/08/24 06:39 Range/Units Serum Glucose 109 H 74-106 mg/dL Microbiology Date/Time Source Procedure Growth Status 12/03/24 11:19 Other Gram Stain - Final Complete 12/03/24 11:19 Other Anaerobic Culture - Final Complete 12/03/24 11:19 Other Aerobic Culture - Final Complete 11/28/24 20:30 Voided Urine Urine Culture - Final Proteus vulgaris Complete 11/28/24 18:53 Blood Blood Culture - Final NO GROWTH AFTER 5 DAYS OF INCUBATION. Complete Problem List/Assessment/Plan Problem List/Assessment/Plan AFEBRILE VSS BM + FLATUS + SEC TO ILEUS S/P OPEN CHOLECYSTECTOMY DRAIN 50 CC SEROSANGUINEOUS LFT TRENDING DOWN DC NG ALLOW CLEAR LIQUIDS REPEAT LABS AM Plan discussed with: Patient Dietary Evaluation Review Recommendations by RD: Protein Supplementation Comments: 1) Initiate Ensure Clear bid while on clear liquid diet d/t poor PO intake. When upgrade to full liquid, consider Ensure Enlive bid. 2) Advance to 60g CCHO 2g Na diet when medically feasible. 3) Continue Zofran - encourage optimate PO intake 4) Consider staff to assist feeding d/t advanced age and AMS Expected Outcomes/Goals: 1) appetite and labs to improve 2) diet to advance 3) f/u in 3 days LA POWERS MD Dec 08, 2024 21:16
[2024-12-08] MEDS: ENOXAPARIN SOD 100 MG/1 ML SYRINGE SC SCH (21:58)
[2024-12-09] VITALS (12 sets, daily range): BP systolic 118–147; BP diastolic 59–67; PULSE 67–86; RESP 14–19; TEMP 97.8–98.2; O2SAT 92–100
[2024-12-09 07:13] LABS: Hematocrit 33.1 % (41.0-53.0); Hemoglobin 11.3 g/dL (13.5-17.5); Mean Corpuscular Hemoglobin 31.3 pg (28.0-32.0); Mean Corpuscular Hgb Conc. 34.2 g/dL (32.0-36.0); Mean Corpuscular Volume 91.4 fL (80.0-100.0); Platelet Count (auto) 180 10^3/uL (140-450); Red Blood Cells 3.62 10^6/uL (4.5-5.90); Red Cell Distribution Width 14.6 % (11.8-14.3); White Blood Cell 9.7 10^3/uL (4.4-10.8)
[2024-12-09 07:22] LABS: Anion Gap 9 (5-15); BUN/Creatinine Ratio 12.9 (10.0-20.0); Blood Urea Nitrogen 9 mg/dL (9-23); Carbon Dioxide 23 mmol/L (20-31); Sodium 141 mmol/L (136-145)
[2024-12-09 07:23] LABS: Bilirubin, Total 0.6 mg/dL (0.2-1.0)
[2024-12-09 07:25] LABS: Alanine Aminotransferase 121 U/L (7-40); Albumin 3.2 g/dL (3.2-4.8); Alkaline Phosphatase 174 U/L (46-116); Aspartate Aminotransferase 61 U/L (13-40); Calcium 8.5 mg/dL (8.7-10.4); Chloride 109 mmol/L (98-107); Glucose 123 mg/dL (74-106); Potassium 3.3 mmol/L (3.5-5.1); Total Protein 5.4 g/dL (5.7-8.2)
[2024-12-09 07:50] LABS: Basophils % (manual) 0 (0.0-2.0); Blast Cells 0; Myelocytes % 0; Promyelocytes % 0; Reactive Lymphocytes 0
[2024-12-09] MEDS: POTASSIUM CHL 20 Meq TABLET PO ONE (09:15)
[2024-12-09 10:00] LABS: Band Neutrophils % (manual) 4; Eosinophils % (manual) 3 (0-7); Lymphocytes % (manual) 9 (10.0-50.0); Metamyelocytes % 3; Monocytes % (manual) 7 (0-12); Platelet Estimate Adequate
--- NOTE | 2024-12-09 10:25 | DVHDSRES ---
Discharge Summary Date of Admission Resident Creating Document: ENRIQUE QUINTANILLA RESIDENT Nov 28, 2024 at 22:08 Date of Discharge: Dec 09, 2024 Admitting Diagnosis Altered mental status Labs/Diagnostic Data: Laboratory Results Test 12/09/24 06:34 12/09/24 05:52 12/02/24 06:08 12/01/24 05:16 White Blood Count 9.7 10^3/uL (4.4-10.8) Red Blood Count 3.62 10^6/uL (4.5-5.90) Hemoglobin 11.3 g/dL (13.5-17.5) Hematocrit 33.1 % (41.0-53.0) Mean Corpuscular Volume 91.4 fL (80.0-100.0) Mean Corpuscular Hemoglobin 31.3 pg (28.0-32.0) Mean Corpuscular Hemoglobin Concent 34.2 g/dL (32.0-36.0) Red Cell Distribution Width 14.6 % (11.8-14.3) Platelet Count 180 10^3/uL (140-450) Mean Platelet Volume 8.2 fL (6.9-10.8) Neutrophils (%) (Auto) % (37.0-80.0) Lymphocytes (%) (Auto) % (10.0-50.0) Monocytes (%) (Auto) % (0.0-12.0) Basophils (%) (Auto) % (0.0-2.0) Neutrophils # (Auto) 10 ^3/uL (1.6-8.6) Lymphocytes # (Auto) 10 ^3/uL (0.4-5.4) Monocytes # (Auto) 10 ^3/uL (0-1.3) Differential Total Cells Counted 100.0 (100) Neutrophils % (Manual) 74 (37.0-80.0) Band Neutrophils % (Manual) 4 Lymphocytes % (Manual) 9 (10.0-50.0) Monocytes % (Manual) 7 (0-12) Eosinophils % (Manual) 3 (0-7) Basophils % (Manual) 0 (0.0-2.0) Metamyelocytes % (manual) 3 Myelocytes % (Manual) 0 Promyelocytes % (Manual) 0 Blast Cells % (Manual) 0 Reactive Lymphocytes 0 Platelet Estimate Adequate Sodium Level 141 mmol/L (136-145) Potassium Level 3.3 mmol/L (3.5-5.1) Chloride Level 109 mmol/L (98-107) Carbon Dioxide Level 23 mmol/L (20-31) Anion Gap 9 (5-15) Blood Urea Nitrogen 9 mg/dL (9-23) Creatinine 0.70 mg/dL (0.700-1.30) Glomerular Filtration Rate Calc 90 mL/min (>90) BUN/Creatinine Ratio 12.9 (10.0-20.0) Serum Glucose 123 mg/dL (74-106) Calcium Level 8.5 mg/dL (8.7-10.4) Total Bilirubin 0.6 mg/dL (0.2-1.0) Aspartate Amino Transferase (AST) 61 U/L (13-40) Alanine Aminotransferase (ALT) 121 U/L (7-40) Alkaline Phosphatase 174 U/L (46-116) Total Protein 5.4 g/dL (5.7-8.2) Albumin 3.2 g/dL (3.2-4.8) POC Glucose 115 mg/dl (70-106) Eosinophils (%) (Auto) 0.4 % (0.0-7.0) Eosinophils # (Auto) 0 10 ^3/uL (0-0.8) Basophils # (Auto) 0 10 ^3/uL (0-0.2) Nucleated Red Blood Cells 0.0 % Magnesium Level 1.7 mg/dL (1.6-2.6) Amylase Level 40 U/L (30-118) Lipase 33 U/L (12-53) Test 11/29/24 00:47 11/28/24 22:20 11/28/24 20:30 11/28/24 20:20 Influenza Type A Antigen Negative (Negative) Influenza Type B Antigen Negative (Negative) SARS-CoV-2 Antigen (Rapid) Negative (NEGATIVE) Lactic Acid Level 1.2 mmol/L (0.4-2.0) Ammonia < 10 umol/L (11-32) Thyroid Stimulating Hormone (TSH) 3.25 uIU/mL (0.55-4.78) Urine Color Yellow (Yellow) Urine Clarity Clear (Clear) Urine pH 5.0 (5.0-9.0) Urine Specific Watson 1.022 (1.001-1.035) Urine Protein 1+ (Negative) Urine Ketones Trace (Negative) Urine Blood Negative /uL (Negative) Urine Nitrite Negative (Negative) Urine Bilirubin Negative (Negative) Urine Urobilinogen Normal mg/dL (Negative) Urine Leukocyte Esterase Negative /uL (Negative) Urine RBC 1 /hpf (0 - 3) Urine Microscopic WBC 3 /HPF (0-3) Urine Squamous Epithelial Cells None seen /hpf (<5) Urine Bacteria None seen /hpf (None Seen) Urine Hyaline Casts Mod /lpf (0 - 2) Urine Glucose Normal mg/dL (Normal) Urine Opiates Screen Neg (NEGATIVE) Urine Fentanyl Screen Neg (NEGATIVE) Urine Barbiturates Screen Neg (NEGATIVE) Urine Phencyclidine Screen Neg (NEGATIVE) Urine Amphetamines Screen Neg (NEGATIVE) Urine Benzodiazepines Screen Neg (NEGATIVE) Urine Cocaine Screen Neg (NEGATIVE) Urine Cannabinoids Screen Neg (NEGATIVE) Free Thyroxine (T4) Calculated 0.94 ng/dL (0.89-1.76) Total Triiodothyronine (TT3) 0.60 ng/mL (0.60-1.81) Test 11/28/24 18:53 Prothrombin Time 13.5 sec (9.3-11.8) Prothrombin Time INR 1.31 (0.9-1.15) Activated Partial Thromboplast Time 36.1 SEC (24.5-34.5) Troponin I High Sensitivity 6 ng/L (</=54) B-Type Natriuretic Peptide 23.48 pg/mL (0-100) Plasma/Serum Blood Alcohol < 3.0 mg/dL (<10) Other Laboratory Tests 12/09/24 06:34 Brief Hx & Hospital Course: Guanaco Suarez is a 84-year-old male who presented to the ED with the chief complaints of altered level of consciousness. PMH: prostate cancer, asthma, type 2 DM, CVA, AFib, hypothyroidism, HTN PSH: Prostate cancer surgery, cataract Family history: Reviewed, noncontributory Social history: Lives with family. Denies smoking, alcohol and other drug abuse Allergies: No known allergies Home medications: Levothyroxine 50 mcg, Eliquis 5 mg b.i.d., metformin 1000 mg b.i.d., losartan 25 mg OD, diltiazem ER 180 mg, atorvastatin 20 mg, imipramine 50 mg, montelukast 10 mg, Lantus 50 units, multivitamin, nebulizer and inhaler. Patient reported 2 days before admission that after eating strawberries patient started having continuous vomiting without blood, next day they went to urgent care, diagnosed as gastroenteritis, given Zofran but today patient 5 observed that has been deteriorating cognitively and unable to perform daily tasks, memory issues, coordination problems and altered than usual which brought patient to visit ED. patient also reported he has been having shortness of breath today and reported he has been not taking diabetic medication for last 2 days. On my assessment patient denies fever, diarrhea, constipation, abdominal pain, chest pain, diaphoresis, mechanical fall, trauma and other acute associated symptoms. Patient initially had a workup to rule out sepsis, a UA revealed a UTI, he was started on broad-spectrum antibiotics, a chest x-ray revealed a pneumonia, a CT scan revealed a possible acute cholecystitis, HIDA scan and MRCP further confirm acute cholecystitis, rule out choledocholithiasis or cholangitis. Liver enzymes were significantly elevated, but they trending down patient Patient was placed on clear liquid diet, so was he was continued on broad-spectrum antibiotics, IV fluids. Surgery was consulted, and they performed an open cholecystectomy, it was determined the patient did have acute cholecystitis and also an intra- abdominal abscess and additions. He was due to this patient's was then placed NPO, an NG tube was placed with continued to drain yellow fluid for the next days, he had bowel rest. Physical therapy were with him several days, patient has had a bowel movement two days ago, and again everyday ever since. Patient was distended at 1st but then abdomen becomes softer, he denied any significant abdominal pain, nausea, vomiting, no fevers, no chills. He was able to walk with assistance and progressively got better in regards to his strength. Patient was progressed to clear liquid diet, and then full liquid diet. Per surgeon patient can be discharged a long as he tolerates full liquid and soft diet. Physical examination as below: General: Awake, alert, comfortable appearing, in no acute distress. HEENT: Head is normocephalic and atraumatic. Pupils are equal, round, and reactive to light. Extraocular muscles are intact. No nasal discharge. No facial trauma. Intraoral exam shows moist mucous membranes with no tonsillar enlargement or exudate. Neck: Supple with no cervical lymphadenopathy No meningismus. No goiter. Heart: Regular rate without murmur, rub, or gallop. Lungs: Equal breath sounds bilaterally with no wheezing, rales, or rhonchi. There is no chest wall tenderness or instability. Abdomen: Bowel sounds are present. Abdomen is distended, HECTOR drain on right side, surgical scar due to open cholecystectomy, no signs of active infection. Extremities: Strong peripheral pulses. There is no clubbing, no cyanosis, and no edema. Skin: No rash. Neurologic: Cranial nerves II-XII intact without motor, sensory, or cerebellar deficit, no asterixis. Patient will be discharged home with home health services for aid on HECTOR drain care. Patient will continue on soft mechanical diet, home meds, he will follow with his PCP within 1-2 weeks, and also with his surgeon Dr. Johnson within this time line. Both patient and verbalized understanding and agreed with the DC plan. We spent over 30 minutes explaining the plan. Case was discussed with Dr. Smith Consults/Reason for consult Surgery was consulted due to acute cholecystitis Cardiology was consulted for cardiac clearance for surgical procedure Operations or Procedures [place] [address] Ph: [phone] DIAGNOSTIC IMAGING Diagnostic Imaging Report : [id number] Signed PATIENT: GUANACO SUAREZ ACCT: [id number] UNIT: [id number] : 1940 LOC: CENTRAL ROOM / BED: [facility] / B AGE / SEX: 84 / M ADM STATUS: ADM IN SERVICE 07 ORDERING PHYSICIAN: JEFF HANDY RESIDENT PROCEDURE(s): ECIDC - ECHO 2D MODE CARDIAC DOP REASON: ? Rule out structural heart disease ORDER NUMBER(s): [id number], ACCESSION NUMBER(s): [id number] APPROVED REPORT EXAM: Two-dimensional and M-mode echocardiogram with Doppler and color Doppler. Blood Pressure: 133/52 mmHg INDICATION R/O structural heart disease RISK FACTORS Height: 6', Weight: 206 DIMENSIONS LVDd 5.3 (3.8-5.7cm) LA (2D) 3.4 (1.9-4.0cm) Aortic Root 3.7 (2.0- 3.7cm) LVDs 3.8 (2.5-4.0cm) LA (MM) (1.9-4.0cm) Aortic Cusp Exc 0.7 (1.5- 2.0cm) EF (%) 55.0 (55-70%) Rt. Atrium 3.8 (1.9-4.0cm) Asc. Aorta 4.0 cm IVSd 0.9 (0.7-1.1cm) RV (D) 3.9 (1.8-2.4cm) PWd 0.8 (0.7-1.1cm) Mitral Valve Mitral Mitral Stenosis E wave 0.62m/s MV Mean GR. mmHg A wave 0.87m/s MV Peak GR. mmHg E/A ratio 0.7 2D MVA cm2 DECEL Time 189ms PRESS 1/2 Time ms Aortic Valve Aortic Valve Aortic Stenosis V1 0.92m/s AO Mean GR. 11mmHg V2 2.01m/s AO Peak GR. 16mmHg LVOT Diameter 2.6 (1.8-2.4cm) Doppler SHANITA 2.43cm2 2D SHANITA 2.19cm2 Pulmonic Valve V2 0.94m/s Tricuspid Valve TR Velocity 2.24m/s RVSP 23mmHg Conclusion lvef 55-60% by visual estimate normal rv function normal atria no severe valve abnormalities noted moderate aortic sclerosis SIGNED BY: UNRULY WALDROP MD SIGNED DATE/TIME: 11/29/24 6377 CC: [place] [address] Ph: [phone] DIAGNOSTIC IMAGING Diagnostic Imaging Report : [id number] Signed PATIENT: GUANACO SUAREZ ACCT: [id number] UNIT: [id number] : 1940 LOC: ER ROOM / BED: / AGE / SEX: 84 / M ADM STATUS: REG ER SERVICE 841 ORDERING PHYSICIAN: BAYRON ANDERSON MD PROCEDURE(s): CXRP - CHEST PORTABLE REASON: sob ORDER NUMBER(s): [id number], ACCESSION NUMBER(s): [id number] CHEST RADIOGRAPH Indication: sob Technique: Single frontal view of the chest was obtained Comparison: None FINDINGS: Lines and Tubes: None Lungs: No focal consolidation. Left basilar linear density. Pleura: No effusion. No pneumothorax. Cardiomediastinal contours: Unremarkable Bones: No acute osseous abnormality. IMPRESSION: Left basilar atelectasis . otherwise , no evidence for acute cardiopulmonary disease. ATED BY: ALLEY MEI DO DICTATED DATE/TIME: 11/28/241905 SIGNED BY: ALLEY MEI DO SIGNED DATE/TIME: 11/28/241905 CC: [place] [address] Ph: [phone] DIAGNOSTIC IMAGING Diagnostic Imaging Report : [id number] Signed PATIENT: GUANACO SUAREZ ACCT: [id number] UNIT: [id number] : 1940 LOC: OVERFLOW ROOM / BED: [address] [place] [address] / A AGE / SEX: 84 / M ADM STATUS: ADM IN SERVICE 40 ORDERING PHYSICIAN: JEFF HANDY RESIDENT PROCEDURE(s): ABPL - CT AB PEL WO CON-NO ORAL OR IV REASON: Possible enteritis ORDER NUMBER(s): [id number], ACCESSION NUMBER(s): [id number] Exam: CT CT AB PEL WO CON-NO ORAL OR IV History: Possible enteritis Comparison Study: None Technique: Multidetector spiral CT of the abdomen was performed from lung bases to pubic symphysis. Imaging was performed without IV contrast. Axial, coronal and sagittal multiplanar reformats were obtained from the axial data set by the technologist. Radiation Dose : 1. Abdomen/Pelvis: CTDIvol mGy, DLP mGy*cm. Findings: Evaluation of solid organs is limited due to lack of intravenous contrast use. Lung Bases: Very mild bibasilar subsegmental atelectasis. No pleural or pericardial effusion. Liver: Liver is normal in size. No focal lesions noted. Gallbladder and Biliary Tree: Possible mild fluid/stranding around the gallbladder. Recommend clinical correlation for cholecystitis. No evidence of biliary ductal dilatation. Spleen: No abnormality demonstrated Pancreas: Pancreas appears grossly unremarkable. Adrenal Glands: No abnormality demonstrated. Kidneys: There is considerable perinephric stranding around both kidneys greater on the right side. Bilateral renal cysts noted. Two nonobstructing calculi are noted in the lower pole of the right kidney and one in the lower pole of the left kidney. No hydroureteronephrosis.. Bladder: Grossly unremarkable for degree of distention. Bowel: Stomach appears grossly unremarkable. No abnormally dilated or thick- walled loops of large or small bowel noted. Moderate amount of stool present in the large bowel. Appendix is not visualized; however, no secondary findings of acute appendicitis identified. Ascites: Small amount of nonspecific free fluid noted in the lower pelvis. Lymphadenopathy: No evidence of lymphadenopathy. Abdominal Wall and Mesentery: Unremarkable. Vasculature: Mild atherosclerotic changes in abdominal aorta and iliac arteries without aneurysmal dilatation. Pelvic Organs: Unremarkable. S/p prostatectomy. Musculoskeletal: No bony lesions or fracture. 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 Mild lumbar spondylosis with mild spinal canal narrowing. IMPRESSION: Possible mild fluid/stranding around the gallbladder. Recommend clinical correlation and ultrasound may be obtained to evaluate for cholecystitis. Considerable perinephric stranding around both kidneys greater on the right side. No hydroureteronephrosis. Nonobstructing renal calculi. Recommend correlation with clinical information and urinalysis to assess for pyelonephritis. Radiation optimization: All CT scans at this facility use at least one of these dose optimization techniques: automated exposure control mA and/or kV adjustment per patient size (includes targeted exams where dose is matched to clinical indication) or iterative reconstruction. ATED BY: VIRGILIO PEREZ MD DICTATED DATE/TIME: 11/29/24117 SIGNED BY: VIRGILIO PEREZ MD SIGNED DATE/TIME: 11/29/24117 CC: [place] [address] Ph: [phone] DIAGNOSTIC IMAGING Diagnostic Imaging Report : [id number] Signed PATIENT: GUANACO SUAREZ ACCT: [id number] UNIT: [id number] : 1940 LOC: CENTRAL ROOM / BED: [facility] / B AGE / SEX: 84 / M ADM STATUS: ADM IN SERVICE 1131 ORDERING PHYSICIAN: RAMON SMITH MD PROCEDURE(s): ABDL - ABDOMEN LIMITED REASON: Acute Choley ORDER NUMBER(s): [id number], ACCESSION NUMBER(s): [id number] INDICATION: Pain, Acute Choley TECHNIQUE: Multiple real-time sonographic images were obtained of the right upper quadrant and left kidney. COMPARISON: 11/29/2024 FINDINGS: The liver demonstrates coarsened echotexture without focal mass lesions. The liver measures 18 cm. There is no intrahepatic or extrahepatic ductal dilatation. The common duct not well visualized due to obscuration from bowel gas. The gallbladder is without evidence of stone or sludge. The gallbladder wall measures 2 mm and is within normal limits. The right kidney measures 12.6 cm. The right kidney is normal in contour, size, and shape. The echogenicity is normal. There is no hydronephrosis. Left kidney measures 12.9 cm. There is a left renal stone measuring 0.4 cm. No hydronephrosis. Bilateral renal cysts measuring up to 4.8 cm. The pancreas is not well visualized due to overlying bowel gas. IMPRESSION: 1. Hepatic steatosis and mild hepatomegaly. Coarsened liver echotexture suggestive of chronic liver disease. 2. No sonographic evidence of cholelithiasis. Trace nonspecific pericholecystic edema. Trace perihepatic ascites. 3. Nonspecific destructive left renal stone measuring 0.4 cm. ATED BY: AFIA BULLARD MD DICTATED DATE/TIME: 11/29/24 1257 SIGNED BY: AFIA BULLARD MD SIGNED DATE/TIME: 11/29/24 1257 CC: [place] [address] Ph: [phone] DIAGNOSTIC IMAGING Diagnostic Imaging Report : [id number] Signed PATIENT: GUANACO SUAREZ ACCT: [id number] UNIT: [id number] : 1940 LOC: CENTRAL ROOM / BED: [facility] / B AGE / SEX: 84 / M ADM STATUS: ADM IN SERVICE 1050 ORDERING PHYSICIAN: CRISTHIAN GOINS MD PROCEDURE(s): GBNM - NM HIDA SCAN REASON: cleo ORDER NUMBER(s): [id number], ACCESSION NUMBER(s): [id number] EXAM: NM NM HIDA SCAN History: cleo Comparison Study: None available TECHNIQUE: Following intravenous administration of 4.1 mCi of Tc-99m mebrofenin (Choletec), dynamic sequential images of the right upper abdomen were acquired for 60 minutes. An additional 4 hour delayed planar images in the frontal and lateral views were also obtained. FINDINGS: The liver demonstrates prompt radiotracer uptake with clearance from blood pool. No focal perfusion defects were noted. There was prompt excretion of the radiotracer into the biliary tree, without evidence of biliary dilatation or obstruction. There was no filling of the gallbladder on the 60 minute or 4 hour delayed images. IMPRESSION: 1. Nonvisualized gallbladder, consistent with acute cholecystitis. ATED BY: AMERICA SAMUELS DO DICTATED DATE/TIME: 12/02/241311 SIGNED BY: AMERICA SAMUELS DO SIGNED DATE/TIME: 12/02/241311 CC: [place] [address] Ph: [phone] DIAGNOSTIC IMAGING Diagnostic Imaging Report : [id number] Signed PATIENT: GUANACO SUAREZ ACCT: [id number] UNIT: [id number] : 1940 LOC: CENTRAL ROOM / BED: [address] [place] [address] AGE / SEX: 84 / M ADM STATUS: ADM IN SERVICE 06 ORDERING PHYSICIAN: CRISTHIAN GOINS MD PROCEDURE(s): CXRP - CHEST PORTABLE REASON: fu ORDER NUMBER(s): [id number], ACCESSION NUMBER(s): [id number] CHEST RADIOGRAPH Indication: fu Technique: Single frontal view of the chest was obtained Comparison: XY CHEST PORTABLE on DOS: 11/28/24 IMPRESSION: Heart is stable in size. Patchy airspace opacity in the right lower lung. No sizable effusion or pneumothorax. ATED BY: CLARITA CONWAY MD DICTATED DATE/TIME: 12/01/24 05 SIGNED BY: CLARITA CONWAY MD SIGNED DATE/TIME: 12/01/24 05 CC: [address] [place] - [address] Ph: [phone] DIAGNOSTIC IMAGING Diagnostic Imaging Report : [id number] Signed PATIENT: GUANACO SUAREZ ACCT: [id number] UNIT: [id number] : 1940 LOC: CENTRAL ROOM / BED: 0222 / B AGE / SEX: 84 / M ADM STATUS: ADM IN SERVICE 7501 ORDERING PHYSICIAN: ENRIQUE QUINTANILLA RESIDENT PROCEDURE(s): MRCP - MRCP MRI REASON: elevated liver enzymes, cholecystitis, r/o cholangitis ORDER NUMBER(s): [id number], ACCESSION NUMBER(s): [id number] MRI MRCP MRI Attending Name: RAMON SMITH COMPARISON: HIDA scan dated 12/02/2024, abdominal ultrasound dated 11/29/2024 INDICATION: elevated liver enzymes, cholecystitis, r/o cholangitis TECHNIQUE: MRCP was performed without the use of intravenous contrast using a MRI imaging system. Three-dimensional MRCP was performed using maximum intensity projection reconstruction on an independent workstation under concurrent supervision. FINDINGS: Visualized lower thorax: Trace bilateral pleural effusions and moderate Right lower lung zone consolidation. Liver: Liver is normal in size. No intrahepatic ductal dilatation but bile ducts appear thick-walled. Mild periportal edema.. Gallbladder: Diffuse gallbladder wall edema. Cholecystitis noted. Pericholecystic edema.. Biliary system: There is no intrahepatic or extrahepatic bile duct dilatation. The common bile duct measures 0.3 cm in caliber. No filling defect to suggest choledocholithiasis. Spleen: Enlarged, 15.5 cm in craniocaudal. Pancreas: Normal in morphology and signal intensity. Adrenal glands: Normal in morphology and signal intensity. Kidneys: The kidneys are symmetric in size and appearance. No hydronephrosis. Multiple bilateral renal cysts measuring up to 4.9 cm. Urinary tract: The included ureters, as visualized, are normal in course and caliber. GI tract: The included portions of the bowel are within normal limits. Lymph nodes: No enlarged lymph nodes. Peritoneum: No ascites. Musculoskeletal: The bone marrow signal intensity is within normal limits. IMPRESSION: 1. Cholelithiasis with evidence of acute cholecystitis. Recommend surgical consultation. 2. No intra or extra hepatic biliary ductal dilatation. No MRI evidence of choledocholithiasis. 3. Periportal edema and intrahepatic ductal edema that could be secondary to cholecystitis . Cholangitis is not entirely excluded. Recommend clinical and biochemical correlation. Please note that evaluation is very limited in this unenhanced study. 4. Trace bilateral pleural effusions and moderate right lower lung zone consolidation that may represent atelectasis or pneumonia. 5. Mild splenomegaly. 6. Bilateral benign-appearing renal cysts. ATED BY: MARY JANE DAIGLE MD DICTATED DATE/TIME: 12/02/241641 SIGNED BY: MARY JANE DAIGLE MD SIGNED DATE/TIME: 12/02/241641 CC: [place] [address] Ph: [phone] DIAGNOSTIC IMAGING Diagnostic Imaging Report : [id number] Signed PATIENT: GUANACO SUAREZ ACCT: [id number] UNIT: [id number] : 1940 LOC: CENTRAL ROOM / BED: [address] [place] [address] AGE / SEX: 84 / M ADM STATUS: ADM IN SERVICE 1236 ORDERING PHYSICIAN: ENRIQUE QUINTANILLA RESIDENT PROCEDURE(s): KUB - KUB ABDOMEN SINGLE VIEW REASON: abd distension ORDER NUMBER(s): [id number], ACCESSION NUMBER(s): [id number] Date: 12/05/2024 01:12 PM Examination: XY KUB ABDOMEN SINGLE VIEW History: abd distension Comparison: None TECHNIQUE: Frontal views of the abdomen was obtained. FINDINGS: Bowel gas pattern is unremarkable. The lung bases are unremarkable. No acute osseous abnormality identified. Right surgical drain . NG tube in stomach IMPRESSION: Nonobstructive bowel gas pattern. Large stool burden ATED BY: JEANINE GAYLE MD DICTATED DATE/TIME: 12/05/241420 SIGNED BY: JEANINE GAYLE MD SIGNED DATE/TIME: 12/05/241420 CC: [place] [address] Ph: [phone] DIAGNOSTIC IMAGING Diagnostic Imaging Report : [id number] Signed PATIENT: GUANACO SUAREZ ACCT: [id number] UNIT: [id number] : 1940 LOC: CENTRAL ROOM / BED: [facility] / B AGE / SEX: 84 / M ADM STATUS: ADM IN SERVICE 1321 ORDERING PHYSICIAN: LA JOHNSON MD PROCEDURE(s): SMBG - SMALL BOWEL SERIES-W GASTROGRA REASON: ? SBO; NO PASSING GAS, NO BM ORDER NUMBER(s): [id number], ACCESSION NUMBER(s): [id number] Procedure: XY SMALL BOWEL SERIES-W GASTROGRA Reason for study/Clinical History: SBO; NO PASSING GAS, NO BM Comparison Study: None available at time of dictation. Technique: Single contrast small bowel series performed. Findings:: Initial head grower view of the abdomen and pelvis appears demonstrates no acute process. Contrast is identified within the colon by 100 minutes This represents a slightly retarded transit time. . IMPRESSION: 1. Probable small bowel ileus ATED BY: BRIAN RODRIGUEZ MD DICTATED DATE/TIME: 12/06/242032 SIGNED BY: BRIAN RODRIGUEZ MD SIGNED DATE/TIME: 12/06/242032 CC: Condition at Discharge: Guarded Final Diagnosis/Problems List Acute cholecystitis with intra-abdominal abscess and adhesions, status post open cholecystectomy Ileus Transaminitis, ruled out choledocholithiasis, cholangitis AFib, controlled rate Metabolic encephalopathy likely due to UTI UTI, complicated Pneumonia Gram-positive versus Gram-negative Atelectasis Hypothyroidism Diabetes Dyslipidemia Acute kidney injury due to VMN Thrombocytopenia likely secondary to chronic liver disease Bilateral renal cysts Bilateral kidney stones Discharge Disposition: Home with Health Services Discharge Statement: "Patient was advised to return to the ER or call 911 if any headaches, dizziness, shortness of breath, chest pain, abdominal pain, bleeding, fevers, or worsening of medical condition. Patient was counseled about treatment plan, medications, possible side effects, patientverbalized understanding. All questions were answered to the best of my ability. This discharge took greater then 30 minutes in planning, reviewing documentation, counseling the patient, and discussing with other team members." ASSESSMENT ASSESSMENT Assessment Date of Service: Dec 09, 2024 Billing Provider: RAMON SMITH MD Common Visit Codes: 11172-OCA/OBS DISCH DAY >30min ENRIQUE QUINTANILLA RESIDENT Dec 09, 2024 10:25 RAMON SMITH MD Dec 10, 2024 17:34
[2024-12-09] MEDS ORDERED: AUG875T PO (13:00)
== END 2024-12-09 18:00 | disposition home health service (06) | DRG 853 ==
LOC: ER 18:32 → EDBD 18:32 → OVERFLOW 22:08 → CENTRAL 11-29 03:57
PROVIDERS: ADMIT Internal Medicine; ATTEND Internal Medicine
PROC: 0F9400Z Drainage of Gallbladder with Drainage Device, Open Approach (ICD-10-PCS; 2024-12-03)
PROC: 0DNW4ZZ Release Peritoneum, Percutaneous Endoscopic Approach (ICD-10-PCS; 2024-12-03)
PROC: 0FJ44ZZ Inspection of Gallbladder, Percutaneous Endoscopic Approach (ICD-10-PCS; 2024-12-03)
PROC: 0FT40ZZ Resection of Gallbladder, Open Approach (ICD-10-PCS; principal; 2024-12-03 09:17)
DX: A41.59 Other Gram-negative sepsis (principal); G93.41 Metabolic encephalopathy; J15.69 Pneumonia due to other Gram-negative bacteria; N17.0 Acute kidney failure with tubular necrosis; K65.1 Peritoneal abscess; J15.9 Unspecified bacterial pneumonia; N12 Tubulo-interstitial nephritis, not specified as acute or chronic; D68.69 Other thrombophilia; K81.0 Acute cholecystitis; K56.7 Ileus, unspecified; N30.00 Acute cystitis without hematuria; E03.9 Hypothyroidism, unspecified; E78.5 Hyperlipidemia, unspecified; E11.22 Type 2 diabetes mellitus with diabetic chronic kidney disease; Z20.822 Contact with and (suspected) exposure to COVID-19; I12.9 Hypertensive chronic kidney disease with stage 1 through stage 4 chronic kidney disease, or unspecified chronic kidney disease; E83.42 Hypomagnesemia; N18.2 Chronic kidney disease, stage 2 (mild); K59.00 Constipation, unspecified; N20.0 Calculus of kidney; N28.1 Cyst of kidney, acquired; I44.7 Left bundle-branch block, unspecified; E66.9 Obesity, unspecified; I48.0 Paroxysmal atrial fibrillation; D69.59 Other secondary thrombocytopenia; K66.0 Peritoneal adhesions (postprocedural) (postinfection); G90.89 Other disorders of autonomic nervous system; K76.9 Liver disease, unspecified; R74.01 Elevation of levels of liver transaminase levels; J45.909 Unspecified asthma, uncomplicated; Z86.73 Personal history of transient ischemic attack (TIA), and cerebral infarction without residual deficits; Z85.46 Personal history of malignant neoplasm of prostate; Z91.013 Allergy to seafood; Z79.4 Long term (current) use of insulin; Z79.84 Long term (current) use of oral hypoglycemic drugs; Z79.01 Long term (current) use of anticoagulants; Z79.899 Other long term (current) drug therapy; Z68.28 Body mass index [BMI] 28.0-28.9, adult
CPT/HCPCS: 36415; 71045; 74018; 74176; 74181; 74250; 76705; 78226; 80048; 80053; 80307; 80320; 81001; 82140; 82150; 82962; 83605; 83690; 83735; 83880; 84439; 84443; 84480; 84484; 85007; 85025; 85027; 85610; 85730; 86850; 86900; 86901; 87040; 87070; 87075; 87086; 87088; 87186; 87205; 87426; 87804; 93005; 93306; 94640; 96365; 97110; 97116; 97163; 97530; G0378; J0131; J0330; J0690; J1100; J1815; J2405; J2470; J2543; J2704; J3490

== ENCOUNTER → 2024-12-24 | Outpatient (CLI) | payer BC ==
[~2024-12-24] MED LIST: ALBU2TAB11 PO; APIX5TAB PO; ASCO500T11 PO; ATOR20TA50 PO; AUG875T PO; CHOL20007 PO; DILT60TA PO; FLUT0.05 NAS; IMIP50TA PO; INSLANTI SC; LEVO50TA7 PO; LOSA-533 PO; METF-370 PO; MONT-8 PO; VITA400T4 PO
[2024-12-24 07:58] LABS: Basophils # (auto) 0.1 10 ^3/uL (0-0.2); Basophils % (auto) 0.8 % (0.0-2.0); Eosinophils # (auto) 0.1 10 ^3/uL (0-0.8); Lymphocytes % (auto) 14.4 % (10.0-50.0); Mean Corpuscular Hemoglobin 31.3 pg (28.0-32.0); Mean Corpuscular Hgb Conc. 34.3 g/dL (32.0-36.0); Mean Corpuscular Volume 91.4 fL (80.0-100.0); Monocytes # (auto) 0.4 10 ^3/uL (0-1.3); Monocytes % (auto) 6.1 % (0.0-12.0); Neutrophils # (auto) 5.6 10 ^3/uL (1.6-8.6); Neutrophils % (auto) 76.7 % (37.0-80.0); Platelet Count (auto) 146 10^3/uL (140-450); Red Blood Cells 4.15 10^6/uL (4.5-5.90); Red Cell Distribution Width 15.4 % (11.8-14.3); White Blood Cell 7.3 10^3/uL (4.4-10.8)
[2024-12-24 08:34] LABS: Alanine Aminotransferase 38 U/L (7-40); Albumin 4.4 g/dL (3.2-4.8); Aspartate Aminotransferase 28 U/L (13-40); BUN/Creatinine Ratio 17.4 (10.0-20.0); Blood Urea Nitrogen 15 mg/dL (9-23); Carbon Dioxide 30 mmol/L (20-31); Potassium 4.5 mmol/L (3.5-5.1); Sodium 139 mmol/L (136-145); Total Protein 6.9 g/dL (5.7-8.2)
[2024-12-24 08:35] LABS: Bilirubin, Total 0.9 mg/dL (0.2-1.0)
[2024-12-24 08:42] LABS: Alkaline Phosphatase 152 U/L (46-116); Glucose 157 mg/dL (74-106)
[2024-12-24 09:15] LABS: Anion Gap 4 (5-15); Chloride 105 mmol/L (98-107)
== END | disposition home or self-care (01) ==
LOC: LAB 07:44
PROVIDERS: ATTEND Internal Medicine
DX: E11.22 Type 2 diabetes mellitus with diabetic chronic kidney disease (principal); N18.2 Chronic kidney disease, stage 2 (mild); R80.9 Proteinuria, unspecified
CPT/HCPCS: 36415; 80053; 83880; 85025

== ENCOUNTER → 2025-01-21 | Outpatient (CLI) | payer BC | END | disposition home or self-care (01) | LOC: LAB 08:12 | PROVIDERS: ATTEND Internal Medicine | DX: E11.22 Type 2 diabetes mellitus with diabetic chronic kidney disease (principal); N18.9 Chronic kidney disease, unspecified; E03.9 Hypothyroidism, unspecified | CPT/HCPCS: 36415; 83036; 84443 ==

== ENCOUNTER 2025-02-14 06:24 | Inpatient (IN) | payer BC ==
[~2025-02-14] VITALS: Ht 188 cm; Wt 81.2 kg
--- NOTE | 2025-02-14 07:04 | ED.PDOC ---
HPI (NEURO) HPI Comments 85-year-old male presents the ER with spouse and with prior medical history of asthma, CVA X2015, diabetes, hypertension; surgical history of cholecystectomy, hernia repair, prostate surgery, cosmetic surgery, gangrene surgery in December 03, 2024 chief complaint of confusion for 10 days. Spouse and PCP thought it was a good idea to bring the patient into the ER for a blood panel eval due from signs of confusion with daily tasks, mixing of facts and confusion with phone. Spouse notes that the pt's brother had dementia past away. Patient is currently A/Ox4. Denies chills, fever, N/V/D, SOB, CP. No other associated symptoms, modifiers, recent injuries or sick contacts present at this time. Chief Complaint: Confusion Time Seen by MD: 06:50 Primary Care Provider: UNKNOWN Reviewed Notes: Nurses Notes, Medications, Allergies Information Source: Patient, Spouse Mode of Arrival: Ambulatory Severity: Moderate Dizziness/Weakness Severity: Does not affect activitie Headache Severity: Mild Timing: Days Duration: Since onset, Days Prehospital treatment: None Onset: At rest Circumstances: Spontaneous Symptoms: Other (Confusion) Before: Aura During: Awake After: Normal Mentation History of: None Associated Signs and Symptoms: None Past Medical History PAST MEDICAL HISTORY: Asthma, CVA, DM, HTN Surgical History: Cholecystectomy, Hernia Repair Surgical History (Other): Prostate surgery, cataract surgery, gangrene surgery Family History Family History: Reviewed,noncontributory to illness Family History (Other): Family history of Dementia Social History Smoker: Non-Smoker Alcohol: Denies ETOH Use Drugs: Denies Drug Use Lives In: Home Constitutional: denies: chills, diaphoresis, fatigue, fever, malaise, sweats, weakness, others EENTM: denies: blurred vision, double vision, ear bleeding, ear discharge, ear drainage, ear pain, ear ringing, eye pain, eye redness, hearing loss, mouth pain, mouth swelling, nasal discharge, nose bleeding, nose congestion, nose pain, photophobia, tearing, throat pain, throat swelling, voice changes, others Respiratory: denies: cough, hemoptysis, orthopnea, SOB at rest, shortness of breath, SOB with excertion, stridor, wheezing, others Cardiovascular: denies: chest pain, dizzy spells, diaphoresis, Dyspnea on exertion, edema, irregular heart beat, left arm pain, lightheadedness, palpitations, PND, syncope, others Gastrointestinal: denies: abdomen distended, abdominal pain, blood streaked bowels, constipated, diarrhea, dysphagia, difficulty swallowing, hematemesis, melena, nausea, poor appetite, poor fluid intake, rectal bleeding, rectal pain, vomiting, others Genitourinary: denies: burning, dysuria, flank pain, frequency, hematuria, incontinence, penile discharge, penile sore, pain, testicle pain, testicle swelling, urgency, others Neurological: reports: others (Confusion); denies: dizziness, fainting, headache, left sided numbness, left sided weakness, numbness, paresthesia, pre- existing deficit, right sided numbness, right sided weakness, seizure, speech problems, tingling, tremors, weakness Musculoskeletal: denies: back pain, gout, joint pain, joint swelling, muscle pain, muscle stiffness, neck pain, others Integumetry: denies: bruises, change in color, change in hair/nails, dryness, laceration, lesions, lumps, rash, wounds, others Allergic/Immunocompromised: denies: Difficulty Healing, Frequent Infections, Hives, Itching, others Hematologic/Lymphatic: denies: anemia, blood clots, easy bleeding, easy bruisin g, swollen glands, others Endocrine: denies: excessive hunger, excessive sweating, excessive thirst, excessive urination, flushing, intolerance to cold, intolerance to heat, unexplained weight gain, unexplained weight loss, others Psychiatric: denies: anxiety, bipolar disorder, depression, hopeless, panic disorder, schizophrenia, sleepless, suicidal, others Physical Exam General Appearance: No Apparent Distress, Normal HEENT: NOT DONE Neck: Normal Respiratory: Normal Breath Sounds Cardiovascular: No Edema, No JVD Breast Exam: Deferred Gastrointestinal: No Organomegaly, No Pulsatile Mass, Normal Bowel Sounds Genitalia: Normal Pelvic: Deferred Rectal: Deferred Extremities: Normal capillary refill, Normal range of motion, No pedal edema Musculoskeletal : Apperance: Normal Neurologic: Alert, No Motor Deficits, Normal Affect, Normal Mood, No Sensory Deficits Cerebellar Function: Normal Reflexes: Normal Skin: Dry, Normal Color Lymphatic: No Adenopathy Was a procedure done? Was a procedure done?: No Differential Diagnosis (SZ) Seizure: N/A CVA: Other (CVA, viral syndrome, ACS, urinary tract infection) General Weakness: N/A Headache: N/A X-Ray, Labs, Meds, VS Vital Signs Date Time Temp Pulse Resp B/P (MAP) Pulse Ox O2 Delivery O2 Flow Rate FiO2 02/14/25 08:19 97.8 78 18 134/52 (79) 94 97.8 02/14/25 06:50 97.6 86 20 133/64 (87) 97 97.6 Lab Test 02/14/25 07:35 02/14/25 06:50 Range/Units Troponin I High Sensitivity 4 5 </=54 ng/L White Blood Count 5.9 4.4-10.8 10^3/uL Red Blood Count 4.87 4.5-5.90 10^6/uL Hemoglobin 14.1 13.5-17.5 g/dL Hematocrit 41.8 41.0-53.0 % Mean Corpuscular Volume 85.8 80.0-100.0 fL Mean Corpuscular Hemoglobin 29.0 28.0-32.0 pg Mean Corpuscular Hemoglobin Concent 33.8 32.0-36.0 g/dL Red Cell Distribution Width 14.8 H 11.8-14.3 % Platelet Count 166 140-450 10^3/uL Mean Platelet Volume 8.2 6.9-10.8 fL Neutrophils (%) (Auto) 75.2 37.0-80.0 % Lymphocytes (%) (Auto) 13.9 10.0-50.0 % Monocytes (%) (Auto) 7.0 0.0-12.0 % Eosinophils (%) (Auto) 2.6 0.0-7.0 % Basophils (%) (Auto) 1.3 0.0-2.0 % Neutrophils # (Auto) 4.4 1.6-8.6 10 ^3/uL Lymphocytes # (Auto) 0.8 0.4-5.4 10 ^3/uL Monocytes # (Auto) 0.4 0-1.3 10 ^3/uL Eosinophils # (Auto) 0.2 0-0.8 10 ^3/uL Basophils # (Auto) 0.1 0-0.2 10 ^3/uL Nucleated Red Blood Cells 0.0 % Sodium Level 137 136-145 mmol/L Potassium Level 4.4 3.5-5.1 mmol/L Chloride Level 103 98-107 mmol/L Carbon Dioxide Level 25 20-31 mmol/L Anion Gap 9 5-15 Blood Urea Nitrogen 13 9-23 mg/dL Creatinine 0.70 0.700-1.30 mg/dL Glomerular Filtration Rate Calc 90 >90 mL/min BUN/Creatinine Ratio 18.6 10.0-20.0 Serum Glucose 194 H 74-106 mg/dL Lactic Acid Level 1.1 0.4-2.0 mmol/L Calcium Level 12.4 H 8.7-10.4 mg/dL Total Bilirubin 0.6 0.2-1.0 mg/dL Aspartate Amino Transferase (AST) 99 H 13-40 U/L Alanine Aminotransferase (ALT) 54 H 7-40 U/L Alkaline Phosphatase 166 H 46-116 U/L B-Type Natriuretic Peptide Pending Total Protein 7.0 5.7-8.2 g/dL Albumin 4.3 3.2-4.8 g/dL PATIENT: VIC SUAREZ ACCT: [id number] UNIT: [id number] : 1940 LOC: ER ROOM / BED: / AGE / SEX: 85 / M ADM STATUS: REG ER SERVICE 0656 ORDERING PHYSICIAN: NAMAN DELGADILLO MD PROCEDURE(s): CXRP - CHEST PORTABLE REASON: [facility] ORDER NUMBER(s): [id number], ACCESSION NUMBER(s): [id number] CLINICAL INFORMATION: Altered mental status. TECHNIQUE: Single AP portable chest radiograph was obtained. COMPARISON: XY CHEST PORTABLE on DOS: 12/01/24, XY CHEST PORTABLE on DOS: 11/28/24 FINDINGS: Lungs: Mild atelectasis in the left lung base. No focal consolidation. No pneumothorax or pleural effusion. Cardiac: Heart size is within normal limits. Pulmonary vasculature: Unremarkable. Mediastinum/nena: Unremarkable. Bones: No acute osseous abnormality identified. Other: No other significant findings. IMPRESSION: Mild left basilar atelectasis. No focal consolidation or other acute radiographic abnormality identified in the chest. ENT: DANIELAVIC Brown ACCT: [id number] UNIT: [id number] : 1940 LOC: ER ROOM / BED: / AGE / SEX: 85 / M ADM STATUS: REG ER SERVICE 0656 ORDERING PHYSICIAN: NAMAN DELGADILLO MD PROCEDURE(s): HWOCT - HEAD WITHOUT CONTRAST REASON: ams ORDER NUMBER(s): [id number], ACCESSION NUMBER(s): [id number] CLINICAL INFORMATION: 85 years old, Male; ams. TECHNIQUE: Axial imaging was obtained through the brain without contrast. Coronal and sagittal reformatted images were obtained, reviewed, and stored. Images were reviewed in brain and bone windows. All CT scans at this medical facility are performed using dose modulation techniques as appropriate to a performed exam including the following: Automated exposure control was utilized; adjustment of the MA and/or KV according to patient size; and use of iterative reconstruction technique. CTDIvol = 60.84 mGy DLP = 974.09 mGy-cm COMPARISON: None FINDINGS: There is no acute intracranial hemorrhage. No mass effect or midline shift. Scattered areas of hypoattenuation are seen in the periventricular and subcortical white matter, which are nonspecific but most likely sequelae of small vessel ischemic disease.The ventricles and sulci are within normal limits in size for age. Basal cisterns are patent. The calvarium is unremarkable. Ilag-ij-zdddspfu mucosal thickening of the paranasal sinuses. Postsurgical changes of prior sinus surgery. Partial opacification of the inferior aspects of the frontal sinuses and anterior ethmoid sinuses. Mastoid air cells are clear. IMPRESSION: 1. No CT evidence of acute intracranial abnormality. 2. Nonacute findings as described above. Time of 1ST Reevaluation: 07:10 Reevaluation 1ST: Unchanged Patient Education/Counseling: Diagnosis, Treatment, Prognosis Family Education/Counseling: Diagnosis, Treatment, Prognosis Departure 1 Departure Time of Disposition: 08:26 (Patient presents with altered mental status. We will admit patient for further workup and expert consultation) Impression: Primary Impression: Metabolic encephalopathy Additional Impression: Generalized weakness Disposition: ADMITTED INPATIENT Admit to: Med Surg Condition: Serious Critical Care Note Critical Care Time?: Yes Critical care comment: Altered mental status Authorized and Performed by: Naman Delgadillo MD Total critical care time: Approximately 39 minutes Due to a high probability of clinically significant, life threatening deterioration, the patient required my highest level of preparedness to intervene emergently and I personally spent this critical care time directly and personally managing the patient. This critical care time included obtaining a history; examining the patient; pulse oximetry; ordering and review of studies; arranging urgent treatment with development of a management plan; evaluation of patient's response to treatment; frequent reassessment; and, discussions with other providers. This critical care time was performed to assess and manage the high probability of imminent, life-threatening deterioration that could result in multi-organ failure. It was exclusive of separately billable procedures and treating other patients and teaching time. Please see my other sections and the rest of the note for further information on patient assessment and treatment. Stability Stability form required: No I personally scribed for NAMAN DELGADILLO MD ([email or web address]) on 02/14/25 at 07:04. Electronically submitted by Heraclio Gunderson ([email or web address]). I personally scribed for NAMAN DELGADILLO MD ([email or web address]) on 02/14/25 at 07:53. Electronically submitted by Vikas Hernandez ([email or web address]). I personally scribed for NAMAN DELGADILLO MD ([email or web address]) on 02/14/25 at 07:54. Electronically submitted by Vikas Hernandez ([email or web address]). NAMAN DELGADILLO MD February 14, 2025 07:04
[2025-02-14 07:18] LABS: Basophils # (auto) 0.1 10 ^3/uL (0-0.2); Basophils % (auto) 1.3 % (0.0-2.0); Eosinophils # (auto) 0.2 10 ^3/uL (0-0.8); Eosinophils % (auto) 2.6 % (0.0-7.0); Hematocrit 41.8 % (41.0-53.0); Hemoglobin 14.1 g/dL (13.5-17.5); Lymphocytes # (auto) 0.8 10 ^3/uL (0.4-5.4); Lymphocytes % (auto) 13.9 % (10.0-50.0); Mean Corpuscular Hgb Conc. 33.8 g/dL (32.0-36.0); Mean Corpuscular Volume 85.8 fL (80.0-100.0); Monocytes # (auto) 0.4 10 ^3/uL (0-1.3); Neutrophils # (auto) 4.4 10 ^3/uL (1.6-8.6); Neutrophils % (auto) 75.2 % (37.0-80.0); Platelet Count (auto) 166 10^3/uL (140-450); Red Blood Cells 4.87 10^6/uL (4.5-5.90); Red Cell Distribution Width 14.8 % (11.8-14.3); White Blood Cell 5.9 10^3/uL (4.4-10.8)
[2025-02-14 07:27] LABS: Albumin 4.3 g/dL (3.2-4.8); Anion Gap 9 (5-15); BUN/Creatinine Ratio 18.6 (10.0-20.0); Bilirubin, Total 0.6 mg/dL (0.2-1.0); Blood Urea Nitrogen 13 mg/dL (9-23); Carbon Dioxide 25 mmol/L (20-31); Chloride 103 mmol/L (98-107); Potassium 4.4 mmol/L (3.5-5.1); Sodium 137 mmol/L (136-145)
[2025-02-14 07:33] LABS: Alanine Aminotransferase 54 U/L (7-40); Alkaline Phosphatase 166 U/L (46-116); Aspartate Aminotransferase 99 U/L (13-40); Calcium 12.4 mg/dL (8.7-10.4); Glucose 194 mg/dL (74-106)
--- NOTE | 2025-02-14 07:40 | DVH ---
CLINICAL INFORMATION: Altered mental status. TECHNIQUE: Single AP portable chest radiograph was obtained. COMPARISON: XY CHEST PORTABLE on DOS: 12/01/24, XY CHEST PORTABLE on DOS: 11/28/24 FINDINGS: Lungs: Mild atelectasis in the left lung base. No focal consolidation. No pneumothorax or pleural eff usion. Cardiac: Heart size is within normal limits. Pulmonary vasculature: Unremarkable. Mediastinum/nena: Unremarkable. Bones: No acute osseous abnormality identified. Other: No other significant findings. IMPRESSION: Mild left basilar atelectasis. No focal consolidation or other acute radiographic abnormality identif ied in the chest.
--- NOTE | 2025-02-14 07:50 | DVH ---
CLINICAL INFORMATION: 85 years old, Male; ams. TECHNIQUE: Axial imaging was obtained through the brain without contrast. Coronal and sagittal reform atted images were obtained, reviewed, and stored. Images were reviewed in brain and bone windows. Al l CT scans at this medical facility are performed using dose modulation techniques as appropriate to a performed exam including the following: Automated exposure control was utilized; adjustment of the MA and/or KV according to patient size; and use of iterative reconstruction technique. CTDIvol = 60.8 4 mGy DLP = 974.09 mGy-cm COMPARISON: None FINDINGS: There is no acute intracranial hemorrhage. No mass effect or midline shift. Scattered areas of hypoattenuation are seen in the periventricular and subcortical white matter, which are nonspecif ic but most likely sequelae of small vessel ischemic disease.The ventricles and sulci are within norm al limits in size for age. Basal cisterns are patent. The calvarium is unremarkable. Kcpv-ze-blukrbw e mucosal thickening of the paranasal sinuses. Postsurgical changes of prior sinus surgery. Partial opacification of the inferior aspects of the frontal sinuses and anterior ethmoid sinuses. Mastoid ai r cells are clear. IMPRESSION: 1. No CT evidence of acute intracranial abnormality. 2. Nonacute findings as described above.
[2025-02-14] MEDS ORDERED: ACETAMINOPHEN 325 MG TAB PO PRN (09:00)
[2025-02-14] MEDS ORDERED: HYDROcodone-ACET 5/325MG TAB PO PRN (09:00)
[2025-02-14] MEDS ORDERED: ONDANSETRON HCL 4 MG/2 ML VIAL IV PRN (09:00)
[2025-02-14] MEDS ORDERED: LOSA-534 PO (09:05)
[2025-02-14 09:15] VITALS: PULSE 78; RESP 12; O2SAT 98
--- NOTE | 2025-02-14 09:18 | DVHHP2 ---
History of Present Illness Reason for Visit: Confusion History of Present Illness Guanaco Andrew is an 85-year-old male with past medical history of hypertension, diabetes, hyperlipidemia, hypothyroidism, and atrial fibrillation who was brought in due to confusion. Patient's states he has been forgetting how to do simple tasks at home. She took him to the doctor and they recommended he go to the hospital to have labs and testing completed. On assessment the patient could tell me his name and date of and that he was in a hospital, but he did not know why or where or what hospital. He stated he was [id number], and that is was 1956. He could remember some medical history but not all. Cardiovascular: AFIB, HTN Endocrine: Diabetes, Hypothyroidism Past Surgical History: Cholecystectomy, Hernia Repair, Other (Prostate) Smoke: No ALCOHOL: none Drugs: None Lives: with Family Domestic Violence: Neg Review of Systems Constitutional: No: Fever, Chills, Sweats, Weakness, Malaise, Other Eyes: No: Pain, Vision change, Conjunctivae inflammation, Eyelid inflammation, Other, Redness ENT: No: Ear pain, Ear discharge, Nose pain, Nose discharge, Nose congestion, Mouth pain, Mouth swelling, Throat pain, Throat swelling, Other Respiratory: No: Cough, Dry, Shortness of breath, SOB with excertion, Wheezing, Hemoptysis, Pleuritic Pain, Sputum, Wheezing, Other Cardiovascular: No: Chest Pain, Palpitations, Orthopnea, Paroxysmal Noc. Dyspnea, Edema, Lt Headedness, Other Gastrointestinal: No: Nausea, Vomiting, Abdominal Pain, Diarrhea, Constipation, Melena, Hematochezia, Other Genitourinary: No Dysuria, No Frequency, No Incontinence, No Hematuria, No Retention, No Other Musculoskeletal: No: other, neck pain, shoulder pain, arm pain, back pain, hand pain, leg pain, foot pain Skin: No: Rash, Lesions, Jaundice, Bruising, Other Neurological: No: Weakness, Numbness, Incoordination, Change in speech, Confusion, Seizures, Other Other Patient was recommended to come to hospital by primary care provider for labs due to confusion. Patient has no complaints at this time. Allergies: Coded Allergies: Shellfish Allergy (Verified Allergy, Unknown, 11/29/24) Medications Current Medications Medications Dose Ordered Sig/Hernando Route Start Time Stop Time Status Last Admin Dose Admin Sodium Chloride 10 ml Q8HR IV 02/14/25 14:00 UNV Acetaminophen/ Hydrocodone Bitart 1 tab Q4HP PRN PO 02/14/25 09:00 UNV Ondansetron HCl 4 mg Q4HP PRN IV 02/14/25 09:00 UNV Docusate Sodium 100 mg BIDPRN PRN PO 02/14/25 09:00 UNV Acetaminophen 650 mg Q6HP PRN PO 02/14/25 09:00 UNV Apixaban 5 mg BID PO 02/14/25 10:00 UNV Atorvastatin Calcium 20 mg DAILY PO 02/14/25 10:00 UNV Diltiazem HCl 180 mg Q8HR PO 02/14/25 14:00 UNV Insulin Glargine 40 units DAILY SC 02/14/25 10:00 UNV Levothyroxine Sodium 50 mcg QAM PO 02/15/25 07:00 UNV Montelukast Sodium 10 mg HS PO 02/14/25 22:00 UNV Patient Own Medication 400 unit DAILY PO 02/14/25 10:00 UNV Patient Own Medication 1,000 unit DAILY PO 02/14/25 10:00 UNV Exam Vital Signs Vital Signs Date Time Temp Pulse Resp B/P (MAP) Pulse Ox O2 Delivery O2 Flow Rate FiO2 02/14/25 08:19 97.8 78 18 134/52 (79) 94 97.8 General Appearance: Alert, Cooperative, mild distress, Other (Oriented x 1) HEENT: Atraumatic, PERRLA Respiratory: Clear to auscultation, Normal air movement Cardiovascular: Regular rate, Normal S1, Normal S2, No murmurs Abdominal: Normal bowel sounds, Soft, No tenderness, No hepatospenomegaly Extremities: No clubbing, No cyanosis, No edema, Normal pulses, No tenderness/swelling Skin: No rashes, No breakdown, No significant lesion Neuro: Normal gait, Normal speech, Strength at 5/5 X4 ext, Normal tone Psych/Mental Status: Mood NL Labs/Xrays Labs Test 02/14/25 07:35 02/14/25 06:50 Range/Units Troponin I High Sensitivity 4 </=54 ng/L White Blood Count 5.9 4.4-10.8 10^3/uL Red Blood Count 4.87 4.5-5.90 10^6/uL Hemoglobin 14.1 13.5-17.5 g/dL Hematocrit 41.8 41.0-53.0 % Mean Corpuscular Volume 85.8 80.0-100.0 fL Mean Corpuscular Hemoglobin 29.0 28.0-32.0 pg Mean Corpuscular Hemoglobin Concent 33.8 32.0-36.0 g/dL Red Cell Distribution Width 14.8 H 11.8-14.3 % Platelet Count 166 140-450 10^3/uL Mean Platelet Volume 8.2 6.9-10.8 fL Neutrophils (%) (Auto) 75.2 37.0-80.0 % Lymphocytes (%) (Auto) 13.9 10.0-50.0 % Monocytes (%) (Auto) 7.0 0.0-12.0 % Eosinophils (%) (Auto) 2.6 0.0-7.0 % Basophils (%) (Auto) 1.3 0.0-2.0 % Neutrophils # (Auto) 4.4 1.6-8.6 10 ^3/uL Lymphocytes # (Auto) 0.8 0.4-5.4 10 ^3/uL Monocytes # (Auto) 0.4 0-1.3 10 ^3/uL Eosinophils # (Auto) 0.2 0-0.8 10 ^3/uL Basophils # (Auto) 0.1 0-0.2 10 ^3/uL Nucleated Red Blood Cells 0.0 % Sodium Level 137 136-145 mmol/L Potassium Level 4.4 3.5-5.1 mmol/L Chloride Level 103 98-107 mmol/L Carbon Dioxide Level 25 20-31 mmol/L Anion Gap 9 5-15 Blood Urea Nitrogen 13 9-23 mg/dL Creatinine 0.70 0.700-1.30 mg/dL Glomerular Filtration Rate Calc 90 >90 mL/min BUN/Creatinine Ratio 18.6 10.0-20.0 Serum Glucose 194 H 74-106 mg/dL Lactic Acid Level 1.1 0.4-2.0 mmol/L Calcium Level 12.4 H 8.7-10.4 mg/dL Total Bilirubin 0.6 0.2-1.0 mg/dL Aspartate Amino Transferase (AST) 99 H 13-40 U/L Alanine Aminotransferase (ALT) 54 H 7-40 U/L Alkaline Phosphatase 166 H 46-116 U/L B-Type Natriuretic Peptide 63.30 0-100 pg/mL Total Protein 7.0 5.7-8.2 g/dL Albumin 4.3 3.2-4.8 g/dL CHEST X-RAY FINDINGS: Lungs: Mild atelectasis in the left lung base. No focal consolidation. No pneumothorax or pleural effusion. Cardiac: Heart size is within normal limits. Pulmonary vasculature: Unremarkable. Mediastinum/nena: Unremarkable. Bones: No acute osseous abnormality identified. Other: No other significant findings. IMPRESSION: Mild left basilar atelectasis. No focal consolidation or other acute radiographic abnormality identified in the chest. TECHNIQUE: Axial imaging was obtained through the brain without contrast. COMPARISON: None FINDINGS: There is no acute intracranial hemorrhage. No mass effect or midline shift. Scattered areas of hypoattenuation are seen in the periventricular and subcortical white matter, which are nonspecific but most likely sequelae of sma ll vessel ischemic disease.The ventricles and sulci are within normal limits in size for age. Basal cisterns are patent. The calvarium is unremarkable. Pvgy-aw-oubzyppe mucosal thickening of the paranasal sinuses. Postsurgical changes of prior sinus surgery. Partial opacification of the inferior aspects of the frontal sinuses and anterior ethmoid sinuses. Mastoid air cells are cl ear. IMPRESSION: 1. No CT evidence of acute intracranial abnormality. 2. Nonacute findings as described above. Assessment/Plan Assessment/Plan Assessment: Metabolic encephalopathy, Autonomic disorder, Possible dementia, Hyperglycemia, Hypertension, Hyperlipidemia, Hypothyroidism, Plan: Admit to Med-Surg, Consider neurology consult if symptoms persist, Consider starting a NMDA antagonist, Accu checks Q AC&HS with sliding scale, Home medications reconciled, Plan discussed with: Patient My Orders Orders - SAJAN TERESA Procedure Category Date Status Time Admit ADMIT 02/14/25 Transmitted 08:58 Code Status CODE 02/14/25 Transmitted 08:58 2 Gm Sodium Diet DIET 02/14/25 Transmitted Breakfast Sodium Chloride Lock PHA 02/14/25 Logged (Saline Lock Ns) 14:00 Hydrocodone-Acet PHA 02/14/25 Logged 5/325mg Tab ([place] 09:00 Ondansetron Hcl PHA 02/14/25 Logged (Zofran) 09:00 Docusate Sodium PHA 02/14/25 Logged Capsule (Colace 09:00 Complete Blood Count LAB 02/15/25 Verified 04:00 Comprehensive LAB 02/15/25 Verified Metabolic Panel 04:00 Condition: Serious JEROMY 02/14/25 In Process 08:58 Acetaminophen Tablet PHA 02/14/25 Logged (Tylenol Tablet) 09:00 Ammonia LAB 02/14/25 Logged 08:58 Apixaban (Eliquis) PHA 02/14/25 Logged 10:00 Atorvastatin (Lipitor) PHA 02/14/25 Logged 10:00 Diltiazem Immediate PHA 02/14/25 Logged Releas Tab (Cardizem 14:00 Insulin Lantus PHA 02/14/25 Logged (Glargine) (Lantus) 10:00 Levothyroxine Tablet PHA 02/15/25 Logged (Synthroid Tablet) 07:00 Montelukast Tablet PHA 02/14/25 Logged (Singulair Tablet) 22:00 (Nf) Alpha Tocopheryl PHA 02/14/25 Logged Acid Succinat (Vit 10:00 (Nf) Cholecalciferol PHA 02/14/25 Logged (Vitamin D3) 10:00 Losartan Tablet PHA 02/14/25 Logged (Cozaar Tablet) 10:00 Date of Service: February 14, 2025 Billing Provider: SAJAN TERESA Common Visit Codes: [id number] INP/OBS CARE (MOD) SAJAN TERESA February 14, 2025 09:18
[2025-02-14 09:23] LABS: Urine Bacteria None Seen /hpf (None Seen)
[2025-02-14 09:29] LABS: Urine Blood Negative /uL (Negative); Urine Clarity Clear (Clear); Urine Color Yellow (Yellow); Urine Protein, UAD 1+ (Negative); Urine Squamous Epithelial Cell None Seen /hpf (<5); Urine Urobilinogen Normal (Negative); Urine WBC < 1 /HPF (0-3); Urine pH 5.5 (5.0-9.0)
[2025-02-14 09:30] VITALS: BP 137/55; PULSE 84; RESP 14; TEMP 97.8; O2SAT 98
[2025-02-14] MEDS: CHOLECALCIFEROL (VITD3) 1,000UNIT=25mCg TAB PO SCH (10:00)
[2025-02-14] MEDS: ALPHA TOCOPHERYL ACID SUCCINAT 400 UNIT PO SCH (10:00)
[2025-02-14] MEDS ORDERED: PATIENTS OWN MEDICATION (Cholecalciferol (Vitamin D3) 1,000 UNIT) PO SCH (10:00)
[2025-02-14] MEDS: LOSARTAN POTASSIUM 50 MG TAB PO SCH (10:00)
[2025-02-14] MEDS: APIXABAN 5 MG TAB PO SCH (10:00)
[2025-02-14] MEDS ORDERED: ALPHA TOCOPHERYL ACID SUCCINAT 400 UNIT PO SCH (10:00)
[2025-02-14] MEDS: INSULIN LANTUS (GLARGINE) 1 /0.01ml (100units/ml) SC SCH (10:00)
[2025-02-14] MEDS: SODIUM CHLOR 0.9% PF (SALINE LOCK) 10ML VIAL/SYR IV SCH (12:42)
[2025-02-14 13:00] VITALS: BP 137/65; PULSE 82; RESP 18; TEMP 97.8; O2SAT 94
[2025-02-14] MEDS ORDERED: DEXTROSE (50%) 50ML SYRG IV PRN (13:45)
[2025-02-14] MEDS ORDERED: dilTIAZem HCL 60 MG TAB PO SCH ×2 (14:00)
[2025-02-14 16:46] VITALS: BP 134/81; PULSE 80; RESP 20; TEMP 97.7; O2SAT 96
[2025-02-14] MEDS: InsuLIN REG 1unit/0.01ml Soln (100units/ml) SC SCH ×2 (17:00→21:10)
[2025-02-14] MEDS: MONTELUKAST SODIUM 10 MG TAB PO SCH (17:22)
[2025-02-14] MEDS: ACCU-CHEK COMFORT CURVE STRIP VI SCH (17:23)
[2025-02-14 21:00] VITALS: BP 153/79; PULSE 79; RESP 14; TEMP 96.6; O2SAT 93
[2025-02-14] MEDS: ATORVASTATIN 20 MG TAB PO SCH (21:07)
[2025-02-14] MEDS: DOCUSATE SOD 100 MG CAP PO PRN (21:11)
[2025-02-15] VITALS (9 sets, daily range): BP systolic 136–151; BP diastolic 58–71; PULSE 73–98; RESP 14–20; TEMP 97.3–98.2; O2SAT 93–100
[2025-02-15 06:04] LABS: Basophils # (auto) 0.1 10 ^3/uL (0-0.2); Eosinophils # (auto) 0.2 10 ^3/uL (0-0.8); Eosinophils % (auto) 3.1 % (0.0-7.0); Hematocrit 42.1 % (41.0-53.0); Hemoglobin 14.3 g/dL (13.5-17.5); Lymphocytes # (auto) 0.8 10 ^3/uL (0.4-5.4); Mean Corpuscular Hgb Conc. 33.8 g/dL (32.0-36.0); Mean Corpuscular Volume 85.9 fL (80.0-100.0); Monocytes # (auto) 0.5 10 ^3/uL (0-1.3); Neutrophils # (auto) 4.4 10 ^3/uL (1.6-8.6); Neutrophils % (auto) 74.9 % (37.0-80.0); Platelet Count (auto) 157 10^3/uL (140-450); Red Blood Cells 4.91 10^6/uL (4.5-5.90); White Blood Cell 5.8 10^3/uL (4.4-10.8)
[2025-02-15] MEDS: LEVOTHYROXINE SODIUM 50 MCG TAB PO SCH (06:10)
[2025-02-15 06:19] LABS: Anion Gap 9 (5-15); BUN/Creatinine Ratio 17.6 (10.0-20.0); Blood Urea Nitrogen 12 mg/dL (9-23); Carbon Dioxide 26 mmol/L (20-31); Chloride 102 mmol/L (98-107); Potassium 4.2 mmol/L (3.5-5.1); Sodium 137 mmol/L (136-145)
[2025-02-15 06:20] LABS: Albumin 4.2 g/dL (3.2-4.8)
[2025-02-15 06:21] LABS: Bilirubin, Total 0.7 mg/dL (0.2-1.0)
[2025-02-15 06:26] LABS: Alanine Aminotransferase 51 U/L (7-40); Alkaline Phosphatase 167 U/L (46-116); Aspartate Aminotransferase 93 U/L (13-40); Calcium 12.5 mg/dL (8.7-10.4); Glucose 182 mg/dL (74-106)
[2025-02-15] MEDS ORDERED: LEVOTHYROXINE SODIUM 50 MCG TAB PO SCH (07:00)
[2025-02-15 16:23] LABS: Erythrocyte Sedimentation Rate 8 mm/hr (0-20)
--- NOTE | 2025-02-15 18:50 | DVHPN2 ---
Subjective Feels better. He had some hallucination. Some memory issues. His brother had Alzheimer dementia around this age and with it Reviewed: Care Plan, H&P, Labs, Medications, Previous Orders, Radiology Changes from previous H/P or p: No Changes Objective Vitals Vital Signs Date Time Temp Pulse Resp B/P (MAP) Pulse Ox O2 Delivery O2 Flow Rate FiO2 02/15/25 16:44 97.5 84 17 144/58 (86) 96 97.5 02/15/25 08:00 Room Air* 0 21 Intake/Output Intake and Output 02/15/25 07:00 Intake Total 840 ml Balance 840 ml Intake Oral 840 ml # Voids 5 General Appearance: Alert, Oriented X3, Cooperative, No acute distress HEENT: Atraumatic Lungs: Clear to auscultation Cardiovascular: Regular rate Extremities: No edema Medications Current Medications Medications Dose Ordered Sig/[place] Route Start Time Stop Time Status Last Admin Dose Admin Sodium Chloride 10 ml Q8HR IV 02/14/25 14:00 02/15/25 14:09 10 ML Acetaminophen/ Hydrocodone Bitart 1 tab Q4HP PRN PO 02/14/25 09:00 Ondansetron HCl 4 mg Q4HP PRN IV 02/14/25 09:00 Docusate Sodium 100 mg BIDPRN PRN PO 02/14/25 09:00 02/15/25 11:57 100 MG Acetaminophen 650 mg Q6HP PRN PO 02/14/25 09:00 Apixaban 5 mg BID PO 02/14/25 10:00 02/15/25 09:21 5 MG Atorvastatin Calcium 20 mg HS PO 02/14/25 22:00 Insulin Glargine 40 units DAILY SC 02/14/25 10:00 Montelukast Sodium 10 mg HS PO 02/14/25 22:00 Losartan Potassium 50 mg DAILY PO 02/14/25 10:00 02/15/25 09:23 50 MG Diltiazem HCl 180 mg Q8HR PO 02/14/25 14:00 Hold Levothyroxine Sodium 50 mcg QAM PO 02/15/25 07:00 02/15/25 06:10 50 MCG Patient Own Medication 400 unit DAILY PO 02/14/25 10:00 Cholecalciferol 1,000 unit DAILY PO 02/14/25 10:00 02/15/25 09:22 1,000 UNIT Diagnostic Test (Pha) 1 strip ACHS 02/14/25 17:00 02/15/25 17:00 1 STRIP Insulin Human Regular HS SC 02/14/25 22:00 Insulin Human Regular AC SC 02/14/25 17:00 Dextrose 50 ml UD PRN IV 02/14/25 13:45 Albuterol 1.25 mg Q4HPRN PRN NEB 02/15/25 17:15 UNV Ipratropium [place] 0.5 mg Q4HPRN PRN NEB 02/15/25 17:15 UNV Laboratory Results Laboratory Tests 02/15/25 05:36 Chemistry Test 02/15/25 05:36 Albumin 4.2 g/dL (3.2-4.8) Calcium Level 12.5 mg/dL (8.7-10.4) H Total Protein 7.0 g/dL (5.7-8.2) LFT Test 02/15/25 05:36 Alanine Aminotransferase (ALT) 51 U/L (7-40) H Alkaline Phosphatase 167 U/L (46-116) H Aspartate Amino Transferase (AST) 93 U/L (13-40) H Total Bilirubin 0.7 mg/dL (0.2-1.0) Urinalysis Test 02/14/25 09:23 Urine Color Yellow (Yellow) Urine Clarity Clear (Clear) Urine pH 5.5 (5.0-9.0) Urine Specific [place] 1.020 (1.001-1.035) Urine Protein 1+ (Negative) H Urine Ketones Negative (Negative) Urine Blood Negative /uL (Negative) Urine Nitrite Negative (Negative) Urine Bilirubin Negative (Negative) Urine Urobilinogen Normal mg/dL (Negative) Urine Leukocyte Esterase Negative /uL (Negative) Urine RBC 1 /hpf (0 - 3) Urine Microscopic WBC < 1 /HPF (0-3) Urine Squamous Epithelial Cells None seen /hpf (<5) Urine Bacteria None seen /hpf (None Seen) Urine Glucose Normal mg/dL (Normal) Microbiology Microbiology Date/Time Source Procedure Growth Status 02/14/25 07:35 Blood Blood Culture - Preliminary NO GROWTH AFTER 24 HOURS OF INCUBATION. Resulted Assessment/Plan Assessment/Plan Altered mental status and confusion likely secondary to hypercalcemia/metabolic encephalopathy Possibly mild and beginning of dementia Hypertension Diabetes Dyslipidemia AFib Hypothyroidism Mild splenomegaly Status post cholecystectomy Plan: We will give Lasix to lower the calcium. We will check PTH. Bone scan. Possible home tomorrow if better. We will continue workup for Alzheimer as outpatient. Plan discussed with: Patient, Spouse My Orders Orders - CRISTHIAN GOINS MD Procedure Category Date Status Time Parathyroid Hormone LAB 02/15/25 In Process Intact 14:59 Nm Bone 3 Phase NM 02/15/25 Logged 15:00 Bisacodyl Suppository PHA 02/15/25 Logged (Dulcolax Supposit 20:00 Albuterol Medneb PHA 02/15/25 Logged (Ventolin Medneb) 17:15 Ipratropium Medneb PHA 02/15/25 Logged (Atrovent Medneb) 17:15 NS PHA 02/15/25 Verified 19:00 Furosemide Injection PHA 02/15/25 Verified (Lasix Injection) 19:00 Potassium Effervesent PHA 02/15/25 Verified Tab (Klor-Con/Ef) 19:00 Date of Service: February 15, 2025 Billing Provider: CRISTHIAN GOINS MD Common Visit Codes: [id number] INP/OBS CARE(HIGH) CRISTHIAN GOINS MD February 15, 2025 18:50
[2025-02-15] MEDS: POTASSIUM EFFERVESENT TAB 25 MEQ PO ONE (20:57)
[2025-02-15] MEDS: FUROSEMIDE 40 MG/4 ML VIAL IV ONE (21:00)
[2025-02-15] MEDS: BISACODYL 10 MG RECT SUPP PR ONE (21:07)
[2025-02-15] MEDS: ALBUTEROL SULF 2.5 MG/0.5ML(0.5%) NEB SOLN NEB PRN (23:15)
[2025-02-15] MEDS: IPRATROPIUM BROM 0.5 MG/2.5ML INH SOL NEB PRN (23:15)
[2025-02-16] VITALS (10 sets, daily range): BP systolic 125–140; BP diastolic 65–90; PULSE 77–96; RESP 16–19; TEMP 97.6–98.1; O2SAT 91–96
[2025-02-16] MEDS: SODIUM CHLORIDE 0.9% 1,000 ML IV ONE (01:12)
[2025-02-16 07:20] LABS: Albumin 4.5 g/dL (3.2-4.8); Anion Gap 7 (5-15); BUN/Creatinine Ratio 17.1 (10.0-20.0); Bilirubin, Total 0.6 mg/dL (0.2-1.0); Blood Urea Nitrogen 14 mg/dL (9-23); Carbon Dioxide 30 mmol/L (20-31); Chloride 100 mmol/L (98-107); Potassium 4.6 mmol/L (3.5-5.1); Sodium 137 mmol/L (136-145); Total Protein 7.5 g/dL (5.7-8.2)
[2025-02-16 07:35] LABS: Alanine Aminotransferase 56 U/L (7-40); Alkaline Phosphatase 184 U/L (46-116); Aspartate Aminotransferase 100 U/L (13-40); Glucose 217 mg/dL (74-106)
[2025-02-16 07:41] LABS: Calcium 13.7 mg/dL (8.7-10.4)
[2025-02-16] MEDS: LACTULOSE 20Gm/30ML SOLN PO PRN (14:51)
[2025-02-16] MEDS: BISACODYL 10 MG RECT SUPP PR ONE (16:30)
[2025-02-16] MEDS: FUROSEMIDE 40 MG/4 ML VIAL IV ONE (16:30)
[2025-02-16] MEDS: PAMIDRONATE DISODIUM 90 MG in SOD CHL 0.45% 1,000 ML IV ONE (16:30)
[2025-02-16] MEDS: POTASSIUM EFFERVESENT TAB 25 MEQ PO ONE (17:27)
[2025-02-16] MEDS: predniSONE 20 MG TAB PO ONE (17:27)
--- NOTE | 2025-02-16 18:32 | DVH ---
INDICATION: hi LFTs TECHNIQUE: Multiple real-time sonographic images of the right upper quadrant were obtained. COMPARISON: US ABDOMEN LIMITED on DOS: 11/29/24, MRCP 12/02/2024 FINDINGS: Liver demonstrates coarsened echotexture. There is a large partially visualized area of hypoechogenic ity in the right hepatic lobe. This was not noted on prior ultrasound or MRCP. 2.9 cm cyst noted in t he left hepatic lobe. The liver measures 17.2 cm. No intrahepatic biliary ductal dilatation is noted. The gallbladder is surgically absent. The common duct measures 5 mm and is unremarkable. The right kidney measures 11.9 cm. No hydronephrosis. There is a 4.7 cm superior pole cyst. The pancreas is echogenic. The visualized portions of the IVC and aorta are grossly unremarkable. IMPRESSION: Coarsened liver echotexture suggestive of chronic liver disease. Newly noted large partially visualiz ed area of hypoechogenicity in the right hepatic lobe. Findings are nonspecific. MRI or MRCP with con trast is recommended for further evaluation.
[2025-02-17] VITALS (10 sets, daily range): BP systolic 111–149; BP diastolic 56–75; PULSE 81–87; RESP 15–84; TEMP 97.4–98.3; O2SAT 92–96
[2025-02-17 09:11] LABS: Basophils # (auto) 0 10 ^3/uL (0-0.2); Basophils % (auto) 0.3 % (0.0-2.0); Eosinophils # (auto) 0 10 ^3/uL (0-0.8); Eosinophils % (auto) 0.2 % (0.0-7.0); Hematocrit 44.8 % (41.0-53.0); Hemoglobin 14.8 g/dL (13.5-17.5); Lymphocytes % (auto) 13.8 % (10.0-50.0); Mean Corpuscular Hemoglobin 28.6 pg (28.0-32.0); Mean Corpuscular Hgb Conc. 33.1 g/dL (32.0-36.0); Mean Corpuscular Volume 86.3 fL (80.0-100.0); Monocytes # (auto) 0.5 10 ^3/uL (0-1.3); Monocytes % (auto) 7.5 % (0.0-12.0); Neutrophils # (auto) 5.5 10 ^3/uL (1.6-8.6); Neutrophils % (auto) 78.2 % (37.0-80.0); Nucleated Red Blood Cells % 0.1 %; Platelet Count (auto) 201 10^3/uL (140-450); Red Cell Distribution Width 15.4 % (11.8-14.3)
[2025-02-17] MEDS: SODIUM CHLORIDE 0.9% 1,000 ML IV SCH (11:30)
--- NOTE | 2025-02-17 13:12 | DVHPN2 ---
Subjective Patient denies any symptoms Reviewed: Care Plan, H&P, Labs, Medications, Previous Orders, Radiology Changes from previous H/P or p: No Changes General: Per HPI Objective Vitals Vital Signs Date Time Temp Pulse Resp B/P (MAP) Pulse Ox O2 Delivery O2 Flow Rate FiO2 02/17/25 12:53 97.5 83 16 126/75 (92) 95 97.5 02/17/25 10:00 Room Air* 0 21 Intake/Output Intake and Output 02/17/25 07:00 Intake Total 820 ml Output Total 150 ml Balance 670 ml Intake Oral 820 ml Output Urine Total 150 ml # Voids 4 # Bowel Movements 1 General Appearance: Alert, Oriented X3, Cooperative, No acute distress HEENT: Atraumatic, PERRLA Lungs: Clear to auscultation Cardiovascular: Regular rate Extremities: No edema Skin: Dry, Intact Psych/Mental Status: Mental status NL, Mood NL Medications Current Medications Medications Dose Ordered Sig/[place] Route Start Time Stop Time Status Last Admin Dose Admin Sodium Chloride 10 ml Q8HR IV 02/14/25 14:00 02/17/25 04:51 10 ML Acetaminophen/ Hydrocodone Bitart 1 tab Q4HP PRN PO 02/14/25 09:00 Ondansetron HCl 4 mg Q4HP PRN IV 02/14/25 09:00 Docusate Sodium 100 mg BIDPRN PRN PO 02/14/25 09:00 02/16/25 12:01 100 MG Acetaminophen 650 mg Q6HP PRN PO 02/14/25 09:00 Apixaban 5 mg BID PO 02/14/25 10:00 02/17/25 08:56 5 MG Atorvastatin Calcium 20 mg HS PO 02/14/25 22:00 02/16/25 21:39 20 MG Insulin Glargine 40 units DAILY SC 02/14/25 10:00 Montelukast Sodium 10 mg HS PO 02/14/25 22:00 02/15/25 20:57 10 MG Losartan Potassium 50 mg DAILY PO 02/14/25 10:00 02/17/25 08:56 50 MG Diltiazem HCl 180 mg Q8HR PO 02/14/25 14:00 Hold Levothyroxine Sodium 50 mcg QAM PO 02/15/25 07:00 02/17/25 06:15 50 MCG Patient Own Medication 400 unit DAILY PO 02/14/25 10:00 Cholecalciferol 1,000 unit DAILY PO 02/14/25 10:00 02/17/25 08:56 1,000 UNIT Diagnostic Test (Pha) 1 strip ACHS 02/14/25 17:00 02/17/25 11:30 1 STRIP Insulin Human Regular HS SC 02/14/25 22:00 Insulin Human Regular AC SC 02/14/25 17:00 Dextrose 50 ml UD PRN IV 02/14/25 13:45 Albuterol 1.25 mg Q4HPRN PRN NEB 02/15/25 17:15 02/15/25 23:15 1.25 MG Ipratropium [place] 0.5 mg Q4HPRN PRN NEB 02/15/25 17:15 02/15/25 23:15 0.5 MG Lactulose 30 ml BIDPRN PRN PO 02/16/25 14:30 02/16/25 14:51 30 ML Sodium Chloride 1,000 ml @ 150 mls/hr Q6H40M IV 02/17/25 11:30 Laboratory Results Laboratory Tests 02/16/25 05:38 02/17/25 08:33 Urinalysis Test 02/14/25 09:23 Urine Color Yellow (Yellow) Urine Clarity Clear (Clear) Urine pH 5.5 (5.0-9.0) Urine Specific [place] 1.020 (1.001-1.035) Urine Protein 1+ (Negative) H Urine Ketones Negative (Negative) Urine Blood Negative /uL (Negative) Urine Nitrite Negative (Negative) Urine Bilirubin Negative (Negative) Urine Urobilinogen Normal mg/dL (Negative) Urine Leukocyte Esterase Negative /uL (Negative) Urine RBC 1 /hpf (0 - 3) Urine Microscopic WBC < 1 /HPF (0-3) Urine Squamous Epithelial Cells None seen /hpf (<5) Urine Bacteria None seen /hpf (None Seen) Urine Glucose Normal mg/dL (Normal) Microbiology Microbiology Date/Time Source Procedure Growth Status 02/14/25 07:35 Blood Blood Culture - Preliminary NO GROWTH AFTER 72 HOURS OF INCUBATION. Resulted Labs and/or images reviewed: Labs reviewed by me, Image(s) reviewed by me Assessment/Plan Assessment/Plan Impression: -metabolic encephalopathy -hypercalcemia -transaminitis -dyslipidemia -atrial fibrillation -recent cholecystectomy Plan: -patient's calcium increasing to 13.6. Start aggressive IV hydration -bone scan plan for tomorrow -continue anticoagulation with Eliquis -continue Lantus and regular insulin sliding scale -continue current antihypertensives -repeat labs in a.m. -long discussion made with the patient and was bedside. All questions answered. Physical examination General: Alert and Oriented x3. No acute distress. Well-nourished. Eyes: EOMI. Anicteric. HENT: Moist mucous membranes. Lungs: Clear to auscultation bilaterally. No accessory muscle use. Cardiovascular: Regular rate and rhythm. No murmur. No JVD. Abdomen: Soft, non-tender and non-distended. No palpable masses. Extremities: No edema. Non-tender. Skin: No rashes or lesions. Warm. Neurologic: No focal neurological deficits. CN II-XII grossly intact, but not individually tested. Psychiatric: Cooperative. Appropriate mood and affect. Total time spent with patient discussing and formulating plan of care: 35 minutes. This medical document was created using an electronic medical record system with [employer] dictation system. Although this document has been carefully reviewed, there may still be some phonetic and typographical errors. These areas are purely typographical due to imperfections of the software programs, and do not reflect any compromise in the patient's medical care. Plan discussed with: Patient, Spouse, Other (RN) My Orders Orders - MARITZA LLANOS NP Procedure Category Date Status Time * Gi Dv [employer] Machine Operator CONS 02/17/25 Transmitted 11:27 Sodium Chloride 0.9% PHA 02/17/25 In Process 11:30 Complete Blood Count LAB 02/18/25 Verified 04:00 Comprehensive LAB 02/18/25 Verified Metabolic Panel 04:00 Lactate Dehydrogenase LAB 02/18/25 Verified 04:00 Acute Hepatitis Panel LAB 02/17/25 Transmitted 13:07 Date of Service: February 17, 2025 Billing Provider: MARITZA LLANOS NP Common Visit Codes: [id number] INP/OBS CARE(HIGH) MARITZA LLANOS NP February 17, 2025 13:12
[2025-02-17 14:10] LABS: Hepatitis B Surface Antigen Negative (Negative)
[2025-02-17 14:23] LABS: Hepatitis A Ab IgM Negative; Hepatitis B Core IgM Negative (Negative); Hepatitis C Antibody Negative (Negative)
--- NOTE | 2025-02-17 20:55 | DVHINCON2 ---
Date of service: February 17, 2025 Referring Physician Arlene Warren Reason for Consultation Elevated liver tests History of Present Illness Guanaco Andrew is an 85-year-old male with past medical history of hypertension, diabetes, hyperlipidemia, hypothyroidism, and atrial fibrillation who was brought in due to confusion. Patient's states he has been forgetting how to do simple tasks at home. She took him to the doctor and they recommended he go to the hospital to have labs and testing completed. On assessment the patient could tell me his name and date of and that he was in a hospital But his memory is poor and there was concern for dementia Of note the patient's labs were abnormal with a very high calcium of 13.7. There was also concern for a possible liver mass and elevated liver enzymes and GI consult was requested for the same Past Medical History Cardiovascular: AFIB, HTN Endocrine: Diabetes, Hypothyroidism Past Surgical History Past Surgical History: Cholecystectomy, Hernia Repair, Other (Prostate) Family History: FH: cancer G8 FATHER Allergies: Coded Allergies: Shellfish Allergy (Verified Allergy, Unknown, 11/29/24) Home Meds Reported Medications Losartan Potassium (Losartan Potassium) 50 Mg Tab, 1 TAB PO DAILY 02/14/25 Fluticasone Propionate (Fluticasone Propionate) 0.05 % Cre, 50 MCG SHEFALI for 30 Days, MCG 11/29/24 Albuterol Sulfate (Albuterol Sulfate) 2 Mg Tab, 2.5 MG PO Q4HR, MG 11/29/24 Insulin Glargine (Lantus) 100 Unit/Ml Inj, 50 UNIT SC, INJ 11/29/24 Ascorbic Acid (VITAMIN C TABLET) 500 Mg Tb, 1000 MG PO, TAB 11/29/24 Montelukast Sodium (MONTELUKAST SODIUM) 10 Mg Tab, 10 MG PO HS, TAB 11/29/24 Imipramine HCl (Imipramine Hydrochloride) 50 Mg Tab, 50 MG PO HS, TAB 11/29/24 Atorvastatin Calcium (ATORVASTATIN CALCIUM) 20 Mg Tab, 1 TAB PO DAILY, #30 TAB 5 Refills 11/29/24 Diltiazem Hcl (Diltiazem Hcl) 60 Mg Tab, 180 MG PO Q8HR for 30 Days, MG 11/29/24 Alpha Tocopheryl Acid Succinat (VITAMIN E) 400 Unit Tab, 400 UNIT PO DAILY, TAB 11/29/24 Cholecalciferol (VITAMIN D3) 2,000 Unit Tab, 1000 UNIT PO DAILY, TAB 11/29/24 Metformin Hydrochloride (Metformin Hcl) 500 Mg Tab, 1000 MG PO IBID for 30 Days, MG 11/29/24 Apixaban Base (ELIQUIS) 5 Mg Tab, 5 MG PO BID, TAB 11/29/24 Levothyroxine Sodium (Levothyroxine Sodium) 50 Mcg Tab, 50 MCG PO QAM for 30 Days, MCG 11/29/24 Discontinued Reported Medications Losartan Potassium (Losartan Potassium) 25 Mg Tab, 1 TAB PO DAILY, #90 TAB 1 Re fill 11/29/24 Discontinued Scripts Amoxicillin & Pot Clavulanate (AUGMENTIN TABLET) 875 Mg Tb, 875 MG PO BID for 3 Days, #6 TAB Prov:ENRIQUE QUINTANILLA RESIDENT 12/09/24 Current Medications Current Medications Medications (Trade) Dose Ordered Sig/[place] Route PRN Reason Start Time Stop Time Status Last Admin Sodium Chloride 1,000 ml @ 150 mls/hr Q6H40M IV 02/17/25 11:30 02/17/25 11:30 Vital Signs Vital Signs Date Time Temp Pulse Resp B/P (MAP) Pulse Ox O2 Delivery O2 Flow Rate FiO2 02/17/25 18:42 93 Room Air* 0 21 02/17/25 17:00 97.6 83 15 111/56 (74) 97.6 Physical Exam General Appearance: Alert, Oriented X3, Cooperative, No acute distress HEENT: Atraumatic, PERRLA Lungs: Clear to auscultation Cardiovascular: Regular rate Extremities: No edema Skin: Dry, Intact Psych/Mental Status: Mental status NL, Mood NL Labs/Diagnostic Data Labs Test 02/17/25 16:32 02/17/25 08:33 02/16/25 05:38 02/15/25 05:36 Range/Units POC Glucose 155 H 70-106 mg/dl White Blood Count 7.0 4.4-10.8 10^3/uL Red Blood Count 5.20 4.5-5.90 10^6/uL Hemoglobin 14.8 13.5-17.5 g/dL Hematocrit 44.8 41.0-53.0 % Mean Corpuscular Volume 86.3 80.0-100.0 fL Mean Corpuscular Hemoglobin 28.6 28.0-32.0 pg Mean Corpuscular Hemoglobin Concent 33.1 32.0-36.0 g/dL Red Cell Distribution Width 15.4 H 11.8-14.3 % Platelet Count 201 140-450 10^3/uL Mean Platelet Volume 8.4 6.9-10.8 fL Neutrophils (%) (Auto) 78.2 37.0-80.0 % Lymphocytes (%) (Auto) 13.8 10.0-50.0 % Monocytes (%) (Auto) 7.5 0.0-12.0 % Eosinophils (%) (Auto) 0.2 0.0-7.0 % Basophils (%) (Auto) 0.3 0.0-2.0 % Neutrophils # (Auto) 5.5 1.6-8.6 10 ^3/uL Lymphocytes # (Auto) 1.0 0.4-5.4 10 ^3/uL Monocytes # (Auto) 0.5 0-1.3 10 ^3/uL Eosinophils # (Auto) 0 0-0.8 10 ^3/uL Basophils # (Auto) 0 0-0.2 10 ^3/uL Nucleated Red Blood Cells 0.1 % Hepatitis A IgM Antibody Negative Hepatitis B Surface Antigen Negative Negative Hepatitis B Core IgM Antibody Negative Negative Hepatitis C Antibody Negative Negative Sodium Level 137 136-145 mmol/L Potassium Level 4.6 3.5-5.1 mmol/L Chloride Level 100 98-107 mmol/L Carbon Dioxide Level 30 20-31 mmol/L Anion Gap 7 5-15 Blood Urea Nitrogen 14 9-23 mg/dL Creatinine 0.82 0.700-1.30 mg/dL Glomerular Filtration Rate Calc 86 >90 mL/min BUN/Creatinine Ratio 17.1 10.0-20.0 Serum Glucose 217 H 74-106 mg/dL Calcium Level 13.7 *H 8.7-10.4 mg/dL Total Bilirubin 0.6 0.2-1.0 mg/dL Aspartate Amino Transferase (AST) 100 H 13-40 U/L Alanine Aminotransferase (ALT) 56 H 7-40 U/L Alkaline Phosphatase 184 H 46-116 U/L Total Protein 7.5 5.7-8.2 g/dL Albumin 4.5 3.2-4.8 g/dL Erythrocyte Sedimentation Rate 8 0-20 mm/hr Parathyroid Hormone (Intact) 6.0 L 18.4-80.1 pg/mL Test 02/14/25 09:30 02/14/25 09:23 02/14/25 07:35 02/14/25 06:50 Range/Units Ammonia < 10 L 11-32 umol/L Urine Color Yellow Yellow Urine Clarity Clear Clear Urine pH 5.5 5.0-9.0 Urine Specific [place] 1.020 1.001-1.035 Urine Protein 1+ H Negative Urine Ketones Negative Negative Urine Blood Negative Negative /uL Urine Nitrite Negative Negative Urine Bilirubin Negative Negative Urine Urobilinogen Normal Negative mg/dL Urine Leukocyte Esterase Negative Negative /uL Urine RBC 1 0 - 3 /hpf Urine Microscopic WBC < 1 0-3 /HPF Urine Squamous Epithelial Cells None seen <5 /hpf Urine Bacteria None seen None Seen /hpf Urine Glucose Normal Normal mg/dL Troponin I High Sensitivity 4 </=54 ng/L Lactic Acid Level 1.1 0.4-2.0 mmol/L B-Type Natriuretic Peptide 63.30 0-100 pg/mL Microbiology Date/Time Source Procedure Growth Status 02/14/25 07:35 Blood Blood Culture - Preliminary NO GROWTH AFTER 72 HOURS OF INCUBATION. Resulted Liver USG IMPRESSION: Coarsened liver echotexture suggestive of chronic liver disease. Newly noted large partially visualized area of hypoechogenicity in the right hepatic lobe. Findings are nonspecific. MRI or MRCP with contrast is recommended for further evaluation. Problems(with codes): (1) Abnormal finding on GI tract imaging (2) Elevated liver enzymes (3) Chronic liver disease (4) Hypercalcemia (5) Generalized weakness (6) Metabolic encephalopathy (7) Confusion Plan/Recommendation Plan: -patient's calcium increasing to 13.6. Start aggressive IV hydration Consider Nephrology or Hematology involvement for management of hypercalcemia -bone scan plan for tomorrow -continue anticoagulation with Eliquis -continue Lantus and regular insulin sliding scale -continue current antihypertensives -repeat labs in a.m; check hepatitis panel, serum alpha fetoprotein, tumor markers MRI/MRCP of the abdomen -long discussion made with the patient and was bedside. All questions answered. Plan discussed with: Patient, Spouse OCTAVIA POWERS MD February 17, 2025 20:55
[2025-02-18] VITALS (10 sets, daily range): BP systolic 120–135; BP diastolic 51–69; PULSE 80–96; RESP 16–18; TEMP 97.5–98.9; O2SAT 90–96
[2025-02-18 06:59] LABS: Basophils # (auto) 0.1 10 ^3/uL (0-0.2); Basophils % (auto) 1.2 % (0.0-2.0); Eosinophils # (auto) 0.1 10 ^3/uL (0-0.8); Eosinophils % (auto) 1.8 % (0.0-7.0); Hematocrit 42.5 % (41.0-53.0); Hemoglobin 14.3 g/dL (13.5-17.5); Lymphocytes # (auto) 0.7 10 ^3/uL (0.4-5.4); Lymphocytes % (auto) 10.7 % (10.0-50.0); Mean Corpuscular Hemoglobin 28.7 pg (28.0-32.0); Mean Corpuscular Hgb Conc. 33.7 g/dL (32.0-36.0); Mean Corpuscular Volume 85.3 fL (80.0-100.0); Monocytes # (auto) 0.4 10 ^3/uL (0-1.3); Neutrophils # (auto) 5.3 10 ^3/uL (1.6-8.6); Neutrophils % (auto) 80.3 % (37.0-80.0); Nucleated Red Blood Cells % 0.1 %; Platelet Count (auto) 182 10^3/uL (140-450); Red Blood Cells 4.99 10^6/uL (4.5-5.90); Red Cell Distribution Width 15.4 % (11.8-14.3); White Blood Cell 6.6 10^3/uL (4.4-10.8)
[2025-02-18 07:07] LABS: Carcinoembryonic Antigen < 0.50 ng/mL (<=5.0); Ferritin 15.9 ng/mL (22-322)
[2025-02-18 07:17] LABS: Anion Gap 10 (5-15); Blood Urea Nitrogen 22 mg/dL (9-23); Carbon Dioxide 24 mmol/L (20-31); Chloride 102 mmol/L (98-107); Potassium 4.2 mmol/L (3.5-5.1); Sodium 136 mmol/L (136-145); Total Protein 6.8 g/dL (5.7-8.2)
[2025-02-18 07:18] LABS: Alanine Aminotransferase 57 U/L (7-40); Alkaline Phosphatase 178 U/L (46-116); Aspartate Aminotransferase 135 U/L (13-40); Bilirubin, Total 0.7 mg/dL (0.2-1.0); Calcium 12.5 mg/dL (8.7-10.4); Glucose 193 mg/dL (74-106)
--- NOTE | 2025-02-18 13:06 | DVHPN2 ---
Subjective Seen and examined at bedside. Need MRI Abd to see Liver. Reviewed: Care Plan, H&P, Labs, Medications, Previous Orders, Radiology Changes from previous H/P or p: No Changes General: Per HPI Objective Vitals Vital Signs Date Time Temp Pulse Resp B/P (MAP) Pulse Ox O2 Delivery O2 Flow Rate FiO2 02/18/25 12:42 97.5 84 16 133/51 (78) 96 97.5 02/18/25 09:54 Room Air 02/18/25 09:54 0 21 Intake/Output Intake and Output 02/18/25 07:00 Intake Total 1325 ml Balance 1325 ml Intake Oral 1325 ml # Voids 6 # Bowel Movements 1 General Appearance: Alert, Oriented X3, Cooperative, No acute distress HEENT: Atraumatic Lungs: Clear to auscultation Cardiovascular: Regular rate Extremities: No edema Skin: Dry, Intact Psych/Mental Status: Mental status NL, Mood NL Medications Current Medications Medications Dose Ordered Sig/[place] Route Start Time Stop Time Status Last Admin Dose Admin Sodium Chloride 10 ml Q8HR IV 02/14/25 14:00 02/18/25 06:00 10 ML Acetaminophen/ Hydrocodone Bitart 1 tab Q4HP PRN PO 02/14/25 09:00 Ondansetron HCl 4 mg Q4HP PRN IV 02/14/25 09:00 Docusate Sodium 100 mg BIDPRN PRN PO 02/14/25 09:00 02/16/25 12:01 100 MG Acetaminophen 650 mg Q6HP PRN PO 02/14/25 09:00 Apixaban 5 mg BID PO 02/14/25 10:00 02/18/25 11:03 5 MG Atorvastatin Calcium 20 mg HS PO 02/14/25 22:00 02/17/25 21:59 20 MG Insulin Glargine 40 units DAILY SC 02/14/25 10:00 Montelukast Sodium 10 mg HS PO 02/14/25 22:00 02/15/25 20:57 10 MG Losartan Potassium 50 mg DAILY PO 02/14/25 10:00 02/18/25 09:53 50 MG Diltiazem HCl 180 mg Q8HR PO 02/14/25 14:00 Hold Levothyroxine Sodium 50 mcg QAM PO 02/15/25 07:00 02/18/25 06:00 50 MCG Patient Own Medication 400 unit DAILY PO 02/14/25 10:00 Cholecalciferol 1,000 unit DAILY PO 02/14/25 10:00 02/18/25 09:53 1,000 UNIT Diagnostic Test (Pha) 1 strip ACHS 02/14/25 17:00 02/18/25 11:03 1 STRIP Insulin Human Regular HS SC 02/14/25 22:00 02/17/25 22:04 3 UNITS Insulin Human Regular AC SC 02/14/25 17:00 02/18/25 06:00 3 UNITS Dextrose 50 ml UD PRN IV 02/14/25 13:45 Albuterol 1.25 mg Q4HPRN PRN NEB 02/15/25 17:15 02/15/25 23:15 1.25 MG Ipratropium [place] 0.5 mg Q4HPRN PRN NEB 02/15/25 17:15 02/15/25 23:15 0.5 MG Lactulose 30 ml BIDPRN PRN PO 02/16/25 14:30 02/16/25 14:51 30 ML Sodium Chloride 1,000 ml @ 150 mls/hr Q6H40M IV 02/17/25 11:30 02/18/25 09:54 150 MLS/HR Laboratory Results Laboratory Tests 02/18/25 05:55 Chemistry Test 02/18/25 05:55 Albumin 4.0 g/dL (3.2-4.8) Calcium Level 12.5 mg/dL (8.7-10.4) H Total Protein 6.8 g/dL (5.7-8.2) LFT Test 02/18/25 05:55 Alanine Aminotransferase (ALT) 57 U/L (7-40) H Alkaline Phosphatase 178 U/L (46-116) H Aspartate Amino Transferase (AST) 135 U/L (13-40) H Total Bilirubin 0.7 mg/dL (0.2-1.0) Urinalysis Test 02/14/25 09:23 Urine Color Yellow (Yellow) Urine Clarity Clear (Clear) Urine pH 5.5 (5.0-9.0) Urine Specific [place] 1.020 (1.001-1.035) Urine Protein 1+ (Negative) H Urine Ketones Negative (Negative) Urine Blood Negative /uL (Negative) Urine Nitrite Negative (Negative) Urine Bilirubin Negative (Negative) Urine Urobilinogen Normal mg/dL (Negative) Urine Leukocyte Esterase Negative /uL (Negative) Urine RBC 1 /hpf (0 - 3) Urine Microscopic WBC < 1 /HPF (0-3) Urine Squamous Epithelial Cells None seen /hpf (<5) Urine Bacteria None seen /hpf (None Seen) Urine Glucose Normal mg/dL (Normal) Microbiology Microbiology Date/Time Source Procedure Growth Status 02/14/25 07:35 Blood Blood Culture - Preliminary NO GROWTH AFTER 72 HOURS OF INCUBATION. Resulted Assessment/Plan Assessment/Plan -metabolic encephalopathy -hypercalcemia- Malignancy? -transaminitis with possible Liver Mass- MRI ABD -dyslipidemia -atrial fibrillation -recent cholecystectomy Plan discussed with: Patient My Orders Orders - RAMON WEAVER MD Procedure Category Date Status Time Mri Abdomen W And Wo MRI 02/18/25 Logged 13:00 Comprehensive LAB 02/19/25 Verified Metabolic Panel 04:00 Date of Service: February 18, 2025 Billing Provider: RAMON WEAVER MD Common Visit Codes: [id number] INP/OBS CARE(HIGH) RAMON WEAVER MD February 18, 2025 13:06
[2025-02-18 14:57] LABS: Folate (Folic Acid) 28.54 ng/mL (>5.38)
[2025-02-18] MEDS: GADOTERATE MEG 7.5 MMOL/15ml INJ (0.5MMOL/ml) IV ONE (15:58)
[2025-02-18 19:23] LABS: Urine Bacteria None Seen /hpf (None Seen)
[2025-02-18 19:39] LABS: Urine Blood Negative /uL (Negative); Urine Clarity Clear (Clear); Urine Color Light-Yellow (Yellow); Urine Protein, UAD Negative (Negative); Urine Specific Gravity 1.016 (1.001-1.035); Urine Squamous Epithelial Cell FEW /hpf (<5); Urine Urobilinogen Normal (Negative); Urine WBC 1 /HPF (0-3)
--- NOTE | 2025-02-18 19:55 | DVH ---
Procedure: MRI MRI ABDOMEN W AND WO 02/18/2025 03:26 PM Indication: Liver Protocol Comparison Study: Ultrasound dated 02/16/2025, MRCP dated 12/02/2024, ultrasound dated 11/29/2024, CT scan dated 11/29/2024 Technique: Multi planar, multi phasic abdominal MRI was performed prior awful administration of IV co ntrast FINDINGS: Lower Chest: Right basilar pulmonary opacities likely atelectasis. Hepatobiliary: There is interval development of numerous hepatic masses with the largest occupying se gments IV and V measuring 13 cm in AP, 6.2 cm in the transverse 10 cm in craniocaudal. The remainder of the lesions are smaller measuring up to 3.3 cm. The lesions are hypoenhancing and do not show shanda rial enhancement. Liver contour is slightly irregular. Trace perihepatic ascites noted. There is int erval removal of gallbladder a nonenhancing 4.7 x 1.5 cm T1 hyperintense and T2 hypointense structure noted in the gallbladder fossa likely postsurgical hematoma. The common bile duct is normal in emmanuelle kristine measuring 0.3 cm. No intrahepatic ductal dilatation noted Spleen: Moderately enlarged, 16.4 cm in craniocaudal. Pancreas: Unremarkable. Adrenal Glands: Unremarkable. tract: The kidneys are normal in size bilaterally without hydronephrosis or nephrolithiasis. Multi ple simple appearing bilateral renal cysts are seen measuring up to 5 cm. Several subcentimeter prote inaceous cysts are noted bilaterally. A mildly complicated 2.3 x 1.7 cm septated cyst noted in the la teral cortex midpole of the left kidney. GI tract: The stomach is grossly normal in appearance. No evidence of small bowel obstruction. Scatt ered colonic diverticula are noted without evidence of diverticulitis. Lymphatics: Interval development of significant periportal lymphadenopathy with lymph nodes measuring up to 3.6 x 3.3 cm. The largest lymph node is between the descending part of the duodenum the CBD. Vasculature: The abdominal aorta is normal in caliber. Bones/soft tissues: No acute abnormality. Other: None. IMPRESSION: 1. Compared to prior exams, there is interval development of numerous hepatic masses measuring up to 13 cm multiple periportal and pancreaticoduodenal lymphadenopathy measuring up to 3.6 cm. The finding s are compatible metastatic lymphadenopathy from an uncertain source. Correlate with pathology report to rule out Gallbladder carcinoma. No discrete colonic lesion is identified in this exam on prior st udies. Further evaluation with colonoscopy may be helpful. Consider further evaluation ultrasound-gu ided hepatic biopsy. 2. Interval cholecystectomy with a 4.7 cm hemorrhagic collection in gallbladder fossa likely postsurg ical hematoma. 3. Stable splenomegaly. 4. Diffuse colonic diverticulosis. 5. Several simple appearing, Bosniak category 1 bilateral renal cysts measuring up to 5 cm and a 2.3 cm complex left renal cyst that should be followed by ultrasound in 6-12 months.
--- NOTE | 2025-02-18 22:20 | DVHPN2 ---
Progress Note - Dictate Date Seen: February 18, 2025 Medical Necessity Reason Pt with a Central, PICC or Fol: No Subjective Patient continues to have some aberrant behavior in his refusing some scheduled medication He underwent MRI examination today of the abdomen Calcium level down to 12.5 today vital signs Vital Sign Date Time Temp Pulse Resp B/P (MAP) Pulse Ox O2 Delivery O2 Flow Rate FiO2 02/18/25 21:00 98.9 80 17 135/67 (89) 98.9 02/18/25 17:19 94 02/18/25 09:54 Room Air 02/18/25 09:54 0 21 Total Intake and Output 02/17/25 02/17/25 02/18/25 15:00 23:00 07:00 Intake Total 825 ml 500 ml Balance 825 ml 500 ml medications Current Medications Medications Dose Ordered Sig/[place] Route Start Time Stop Time Status Last Admin Dose Admin Sodium Chloride 10 ml Q8HR IV 02/14/25 14:00 02/18/25 21:33 10 ML Acetaminophen/ Hydrocodone Bitart 1 tab Q4HP PRN PO 02/14/25 09:00 Ondansetron HCl 4 mg Q4HP PRN IV 02/14/25 09:00 Docusate Sodium 100 mg BIDPRN PRN PO 02/14/25 09:00 02/16/25 12:01 100 MG Acetaminophen 650 mg Q6HP PRN PO 02/14/25 09:00 Apixaban 5 mg BID PO 02/14/25 10:00 02/18/25 11:03 5 MG Insulin Glargine 40 units DAILY SC 02/14/25 10:00 Montelukast Sodium 10 mg HS PO 02/14/25 22:00 02/15/25 20:57 10 MG Losartan Potassium 50 mg DAILY PO 02/14/25 10:00 02/18/25 09:53 50 MG Diltiazem HCl 180 mg Q8HR PO 02/14/25 14:00 Hold Levothyroxine Sodium 50 mcg QAM PO 02/15/25 07:00 02/18/25 06:00 50 MCG Patient Own Medication 400 unit DAILY PO 02/14/25 10:00 Cholecalciferol 1,000 unit DAILY PO 02/14/25 10:00 02/18/25 09:53 1,000 UNIT Diagnostic Test (Pha) 1 strip ACHS 02/14/25 17:00 02/18/25 16:30 1 STRIP Insulin Human Regular HS SC 02/14/25 22:00 02/17/25 22:04 3 UNITS Insulin Human Regular AC SC 02/14/25 17:00 02/18/25 06:00 3 UNITS Dextrose 50 ml UD PRN IV 02/14/25 13:45 Albuterol 1.25 mg Q4HPRN PRN NEB 02/15/25 17:15 02/15/25 23:15 1.25 MG Ipratropium [place] 0.5 mg Q4HPRN PRN NEB 02/15/25 17:15 02/15/25 23:15 0.5 MG Lactulose 30 ml BIDPRN PRN PO 02/16/25 14:30 02/16/25 14:51 30 ML Sodium Chloride 1,000 ml @ 150 mls/hr Q6H40M IV 02/17/25 11:30 02/18/25 20:50 150 MLS/HR objective General Appearance: Alert, Oriented X3, Cooperative, No acute distress HEENT: Atraumatic, PERRLA Lungs: Clear to auscultation Cardiovascular: Regular rate Extremities: No edema Skin: Dry, Intact Psych/Mental Status: confused sometimes agitated laboratory and microbiology Laboratory Tests 02/18/25 05:55 Test 02/18/25 05:55 Range/Units Serum Glucose 193 H 74-106 mg/dL MRI ABD IMPRESSION: 1. Compared to prior exams, there is interval development of numerous hepatic masses measuring up to 13 cm multiple periportal and pancreaticoduodenal lymphadenopathy measuring up to 3.6 cm. The findings are compatible metastatic lymphadenopathy from an uncertain source. Correlate with pathology report to rule out Gallbladder carcinoma. No discrete colonic lesion is identified in this exam on prior studies. Further evaluation with colonoscopy may be helpful. Consider further evaluation ultrasound-guided hepatic biopsy. 2. Interval cholecystectomy with a 4.7 cm hemorrhagic collection in gallbladder fossa likely postsurgical hematoma. 3. Stable splenomegaly. 4. Diffuse colonic diverticulosis. 5. Several simple appearing, Bosniak category 1 bilateral renal cysts measuring up to 5 cm and a 2.3 cm complex left renal cyst that should be followed by ultrasound in 6-12 months. Problems(with codes): (1) Abnormal finding on GI tract imaging (2) Elevated liver enzymes (3) Metabolic encephalopathy (4) Chronic liver disease (5) Confusion (6) Hypercalcemia (7) Generalized weakness (8) Liver masses Prognosis Plan CEA level is normal CA 19-9 and serum alpha fetoprotein are pending Arrange CT-guided liver biopsy of a liver mass possible oncology consult pending results of the above Correct hypercalcemia Prognosis remains guarded Plan discussed with: Patient, Spouse OCTAVIA POWERS MD February 18, 2025 22:20
[2025-02-19] VITALS (7 sets, daily range): BP systolic 121–134; BP diastolic 55–72; PULSE 79–83; RESP 17–18; TEMP 97–99.1; O2SAT 95–96
[2025-02-19 06:07] LABS: Carbohydrate Antigen 19-9 14 U/mL (0-35)
[2025-02-19 07:26] LABS: Albumin 3.8 g/dL (3.2-4.8); Anion Gap 6 (5-15); BUN/Creatinine Ratio 15.5 (10.0-20.0); Bilirubin, Total 0.6 mg/dL (0.2-1.0); Blood Urea Nitrogen 13 mg/dL (9-23); Carbon Dioxide 26 mmol/L (20-31); Chloride 106 mmol/L (98-107); Potassium 4.2 mmol/L (3.5-5.1); Sodium 138 mmol/L (136-145); Total Protein 6.5 g/dL (5.7-8.2)
[2025-02-19 07:30] LABS: Alanine Aminotransferase 55 U/L (7-40); Alkaline Phosphatase 179 U/L (46-116); Aspartate Aminotransferase 119 U/L (13-40); Glucose 162 mg/dL (74-106)
[2025-02-19 08:16] LABS: INR 1.18 (0.9-1.15); Partial Thromboplastin Time 27.5 SEC (24.5-34.5); Prothrombin Time 12.3 sec (9.3-11.8)
[2025-02-19] MEDS: GADOTERATE MEG 7.5 MMOL/15ml INJ (0.5MMOL/ml) IV ONE (10:22)
--- NOTE | 2025-02-19 10:32 | DVHPN2 ---
Subjective Seen and examined at bedside. MRI ABD Reviewed, discussed with spouse about malignancy. Will get Biopsy. Reviewed: Care Plan, H&P, Labs, Medications, Previous Orders, Radiology Changes from previous H/P or p: No Changes General: Per HPI Objective Vitals Vital Signs Date Time Temp Pulse Resp B/P (MAP) Pulse Ox O2 Delivery O2 Flow Rate FiO2 02/19/25 09:47 Room Air* 0 21 02/19/25 05:00 99.1 80 18 133/55 (81) 99.1 02/18/25 23:25 94 Intake/Output Intake and Output 02/19/25 07:00 Intake Total 600 ml Balance 600 ml Intake Oral 600 ml # Voids 3 General Appearance: Alert, Oriented X3, Cooperative, No acute distress HEENT: Atraumatic Lungs: Clear to auscultation Cardiovascular: Regular rate Extremities: No edema Skin: Dry, Intact Psych/Mental Status: Mental status NL, Mood NL Medications Current Medications Medications Dose Ordered Sig/[place] Route Start Time Stop Time Status Last Admin Dose Admin Sodium Chloride 10 ml Q8HR IV 02/14/25 14:00 02/19/25 06:00 10 ML Acetaminophen/ Hydrocodone Bitart 1 tab Q4HP PRN PO 02/14/25 09:00 Ondansetron HCl 4 mg Q4HP PRN IV 02/14/25 09:00 Docusate Sodium 100 mg BIDPRN PRN PO 02/14/25 09:00 02/16/25 12:01 100 MG Acetaminophen 650 mg Q6HP PRN PO 02/14/25 09:00 Apixaban 5 mg BID PO 02/14/25 10:00 02/18/25 11:03 5 MG Insulin Glargine 40 units DAILY SC 02/14/25 10:00 Montelukast Sodium 10 mg HS PO 02/14/25 22:00 02/15/25 20:57 10 MG Losartan Potassium 50 mg DAILY PO 02/14/25 10:00 02/18/25 09:53 50 MG Diltiazem HCl 180 mg Q8HR PO 02/14/25 14:00 Hold Levothyroxine Sodium 50 mcg QAM PO 02/15/25 07:00 02/19/25 06:31 50 MCG Patient Own Medication 400 unit DAILY PO 02/14/25 10:00 Cholecalciferol 1,000 unit DAILY PO 02/14/25 10:00 02/18/25 09:53 1,000 UNIT Diagnostic Test (Pha) 1 strip ACHS 02/14/25 17:00 02/19/25 06:34 1 STRIP Insulin Human Regular HS SC 02/14/25 22:00 02/17/25 22:04 3 UNITS Insulin Human Regular AC SC 02/14/25 17:00 02/19/25 06:38 2 UNITS Dextrose 50 ml UD PRN IV 02/14/25 13:45 Albuterol 1.25 mg Q4HPRN PRN NEB 02/15/25 17:15 02/15/25 23:15 1.25 MG Ipratropium [place] 0.5 mg Q4HPRN PRN NEB 02/15/25 17:15 02/15/25 23:15 0.5 MG Lactulose 30 ml BIDPRN PRN PO 02/16/25 14:30 02/16/25 14:51 30 ML Sodium Chloride 1,000 ml @ 150 mls/hr Q6H40M IV 02/17/25 11:30 02/18/25 20:50 150 MLS/HR Laboratory Results Laboratory Tests 02/18/25 05:55 02/19/25 06:01 Chemistry Test 02/19/25 06:01 Albumin 3.8 g/dL (3.2-4.8) Calcium Level 12.0 mg/dL (8.7-10.4) H Total Protein 6.5 g/dL (5.7-8.2) Coagulation Test 02/19/25 06:01 Prothrombin Time 12.3 sec (9.3-11.8) H Prothrombin Time INR 1.18 (0.9-1.15) H Activated Partial Thromboplast Time 27.5 SEC (24.5-34.5) LFT Test 02/19/25 06:01 Alanine Aminotransferase (ALT) 55 U/L (7-40) H Alkaline Phosphatase 179 U/L (46-116) H Aspartate Amino Transferase (AST) 119 U/L (13-40) H Total Bilirubin 0.6 mg/dL (0.2-1.0) Urinalysis Test 02/18/25 17:15 Urine Color Light-yellow (Yellow) Urine Clarity Clear (Clear) Urine pH 6.0 (5.0-9.0) Urine Specific [place] 1.016 (1.001-1.035) Urine Protein Negative (Negative) Urine Ketones Negative (Negative) Urine Blood Negative /uL (Negative) Urine Nitrite Negative (Negative) Urine Bilirubin Negative (Negative) Urine Urobilinogen Normal mg/dL (Negative) Urine Leukocyte Esterase Negative /uL (Negative) Urine RBC <1 /hpf (0 - 3) Urine Microscopic WBC 1 /HPF (0-3) Urine Squamous Epithelial Cells Few /hpf (<5) Urine Bacteria None seen /hpf (None Seen) Urine Glucose Normal mg/dL (Normal) Microbiology Microbiology Date/Time Source Procedure Growth Status 02/14/25 07:35 Blood Blood Culture - Final NO GROWTH AFTER 5 DAYS OF INCUBATION. Complete Assessment/Plan Assessment/Plan -metabolic encephalopathy -hypercalcemia- Malignancy? -transaminitis with possible Liver Mass- MRI ABD -dyslipidemia -atrial fibrillation -recent cholecystectomy Plan discussed with: Patient, Spouse My Orders Orders - RAMON WEAVER MD Procedure Category Date Status Time Mri Abdomen W And Wo MRI 02/18/25 Resulted 13:00 DNR JEROMY 02/18/25 In Process Code Status CODE 02/18/25 Transmitted 13:58 * Radiologist Consult CONS 02/19/25 Transmitted 07:14 Brain Head Wo W MRI 02/19/25 Taken Contrast 07:14 Date of Service: February 19, 2025 Billing Provider: RAMON WEAVER MD Common Visit Codes: [id number] INP/OBS CARE(HIGH) RAMON WEAVER MD February 19, 2025 10:32
--- NOTE | 2025-02-19 11:25 | DVH ---
MRI BRAIN WITH CONTRAST CLINICAL HISTORY: BRAIN METS TECHNIQUE: Multiplanar multisequence images of the brain were obtained prior to and following intravenous admini stration of contrast. 15 cc of Clariscan contrast from a prefilled syringe was administered intraveno usly. Comparison: CT head 02/14/2025 FINDINGS: There is no restricted diffusion. There is mild generalized parenchymal volume loss. There are mild c hronic small-vessel ischemic changes in the supratentorial white matter. There is no pathologic enhan cement. There is no evidence of hemorrhage, mass, mass effect or midline shift. There is no hydroceph alus or extra-axial fluid collection. The visualized intracranial vasculature demonstrates appropriat e flow-voids. The midline structures appear unremarkable. The craniocervical junction is within he l limits. The calvarium demonstrates normal marrow signal. There are sinonasal postsurgical changes. There is mild mucosal thickening in the maxillary sinuses. The mastoid air cells are clear. IMPRESSION: 1. There is no evidence of intracranial metastasis. HS:Y
[2025-02-19 15:07] LABS: Anti-Nuclear Antibody Direct Negative (Negative)
--- NOTE | 2025-02-19 15:16 | DVH ---
Procedure: NM BONE WHOLE BODY Exam Date: 02/19/2025 12:03 PM Reason for study/Clinical History: ro mets Comparison Study: None Prior correlative imaging: Abdominal MRI dated 02/18/2025, brain MRI dated 02/19/2025 Nuclear Medicine Whole Body Bone Scan Technique: Following the intravenous administration of 26.5 millicuries of technetium 99m labeled MDP, whole bod y images in the anterior and posterior projections were obtained 3 hours following the administration of radiopharmaceutical. Findings: There is mild symmetric multifocal activity overlying both shoulders and knees consistent with mild d egenerative change. The expected mild activity is noted overlying both kidneys and the bladder without evidence of obstru ction. A photopenic area noted in the upper pole of the right kidney corresponding to a cyst seen in the prior exam. Impression: 1. There is no evidence of focal increased uptake consistent with bony metastatic disease. 2. Mild multifocal activity consistent with degenerative changes as described above.
--- NOTE | 2025-02-19 16:58 | DVHPN2 ---
Progress Note - Dictate Date Seen: February 19, 2025 Medical Necessity Reason Pt with a Central, PICC or Fol: No Subjective Patient continues to have some aberrant behavior and is confused He behaves retro when his is at the bedside Bone scan did not show any evidence of bony metastases Brain MRI did not show any infarct or brain metastases His ammonia level is normal MRI exam done yesterday shows extensive hepatic masses and a small fluid collection in the gallbladder fossa possibly resolving hematoma [place] [address]!! Hepatitis panel is negative ARIK is normal and mild persistent elevation liver enzymes vital signs Vital Sign Date Time Temp Pulse Resp B/P (MAP) Pulse Ox O2 Delivery O2 Flow Rate FiO2 02/19/25 11:25 96 Room Air 02/19/25 11:25 0 21 02/19/25 09:00 97.0 80 17 127/64 (85) 97.0 Total Intake and Output 02/18/25 02/18/25 02/19/25 15:00 23:00 07:00 Intake Total 300 ml 300 ml Balance 300 ml 300 ml medications Current Medications Medications Dose Ordered Sig/[place] Route Start Time Stop Time Status Last Admin Dose Admin Sodium Chloride 10 ml Q8HR IV 02/14/25 14:00 02/19/25 16:13 10 ML Acetaminophen/ Hydrocodone Bitart 1 tab Q4HP PRN PO 02/14/25 09:00 Ondansetron HCl 4 mg Q4HP PRN IV 02/14/25 09:00 Docusate Sodium 100 mg BIDPRN PRN PO 02/14/25 09:00 02/16/25 12:01 100 MG Acetaminophen 650 mg Q6HP PRN PO 02/14/25 09:00 Apixaban 5 mg BID PO 02/14/25 10:00 02/18/25 11:03 5 MG Insulin Glargine 40 units DAILY SC 02/14/25 10:00 Montelukast Sodium 10 mg HS PO 02/14/25 22:00 02/15/25 20:57 10 MG Losartan Potassium 50 mg DAILY PO 02/14/25 10:00 02/18/25 09:53 50 MG Diltiazem HCl 180 mg Q8HR PO 02/14/25 14:00 Hold Levothyroxine Sodium 50 mcg QAM PO 02/15/25 07:00 02/19/25 06:31 50 MCG Patient Own Medication 400 unit DAILY PO 02/14/25 10:00 Cholecalciferol 1,000 unit DAILY PO 02/14/25 10:00 02/18/25 09:53 1,000 UNIT Diagnostic Test (Pha) 1 strip ACHS 02/14/25 17:00 02/19/25 11:55 1 STRIP Insulin Human Regular HS SC 02/14/25 22:00 02/17/25 22:04 3 UNITS Insulin Human Regular AC SC 02/14/25 17:00 02/19/25 06:38 2 UNITS Dextrose 50 ml UD PRN IV 02/14/25 13:45 Albuterol 1.25 mg Q4HPRN PRN NEB 02/15/25 17:15 02/15/25 23:15 1.25 MG Ipratropium [place] 0.5 mg Q4HPRN PRN NEB 02/15/25 17:15 02/15/25 23:15 0.5 MG Lactulose 30 ml BIDPRN PRN PO 02/16/25 14:30 02/16/25 14:51 30 ML Sodium Chloride 1,000 ml @ 150 mls/hr Q6H40M IV 02/17/25 11:30 02/18/25 20:50 150 MLS/HR objective General Appearance: Alert, Oriented X3, Cooperative, No acute distress HEENT: Atraumatic, PERRLA Lungs: Clear to auscultation Cardiovascular: Regular rate Extremities: No edema Skin: Dry, Intact Psych/Mental Status: confused sometimes agitated laboratory and microbiology Laboratory Tests 02/19/25 06:01 02/18/25 05:55 Test 02/19/25 06:01 Range/Units Serum Glucose 162 H 74-106 mg/dL Problems(with codes): (1) Elevated serum alpha-fetoprotein level (2) Liver masses (3) Abnormal finding on GI tract imaging (4) Elevated liver enzymes (5) Metabolic encephalopathy (6) Chronic liver disease Prognosis Plan The above results were reviewed with the patient's and with nurse Alesia Liver biopsies tentatively scheduled for Monday in his Eliquis on hold The is leaning towards not proceeding with a liver biopsy She is agreeable to consideration for hospice care Patient states she needs help taking care of him at home Overall prognosis remains guarded Dietary Evaluation Review Comments: 1) liberalized to NCS diet 2) Continue current POC Expected Outcomes/Goals: To meet >75% estimated needs Fu 3-5 days Plan discussed with: Spouse (Nurse), Other OCTAVIA POWERS MD February 19, 2025 16:58
[2025-02-20] VITALS (9 sets, daily range): BP systolic 132–143; BP diastolic 58–73; PULSE 65–78; RESP 14–19; TEMP 97.5–98; O2SAT 94–98
--- NOTE | 2025-02-20 17:33 | DVHPN2 ---
Subjective Seen and examined at bedside. Had a lengthy discussion about diagnoses with patient and spouse. Patient and spouse wish for hospice at home. Reviewed: Care Plan, H&P, Labs, Medications, Previous Orders, Radiology Changes from previous H/P or p: No Changes General: Per HPI Objective Vitals Vital Signs Date Time Temp Pulse Resp B/P (MAP) Pulse Ox O2 Delivery O2 Flow Rate FiO2 02/20/25 17:00 97.5 74 14 132/66 (88) 95 97.5 02/20/25 10:30 Room Air 0.0 02/20/25 10:30 21 Intake/Output Intake and Output 02/20/25 07:00 Intake Total 1900 ml Output Total 600 ml Balance 1300 ml Intake Oral 400 ml IV Total 1500 ml Output Urine Total 600 ml # Voids 3 # Bowel Movements 1 General Appearance: Alert, Oriented X3, Cooperative, No acute distress HEENT: Atraumatic Lungs: Clear to auscultation Cardiovascular: Regular rate Extremities: No edema Skin: Dry, Intact Psych/Mental Status: Mental status NL, Mood NL Medications Current Medications Medications Dose Ordered Sig/[place] Route Start Time Stop Time Status Last Admin Dose Admin Sodium Chloride 10 ml Q8HR IV 02/14/25 14:00 02/20/25 01:37 10 ML Acetaminophen/ Hydrocodone Bitart 1 tab Q4HP PRN PO 02/14/25 09:00 Ondansetron HCl 4 mg Q4HP PRN IV 02/14/25 09:00 Docusate Sodium 100 mg BIDPRN PRN PO 02/14/25 09:00 02/16/25 12:01 100 MG Acetaminophen 650 mg Q6HP PRN PO 02/14/25 09:00 Apixaban 5 mg BID PO 02/14/25 10:00 02/18/25 11:03 5 MG Insulin Glargine 40 units DAILY SC 02/14/25 10:00 Montelukast Sodium 10 mg HS PO 02/14/25 22:00 02/15/25 20:57 10 MG Losartan Potassium 50 mg DAILY PO 02/14/25 10:00 02/20/25 11:32 50 MG Diltiazem HCl 180 mg Q8HR PO 02/14/25 14:00 Hold Levothyroxine Sodium 50 mcg QAM PO 02/15/25 07:00 02/20/25 05:23 50 MCG Patient Own Medication 400 unit DAILY PO 02/14/25 10:00 Cholecalciferol 1,000 unit DAILY PO 02/14/25 10:00 02/20/25 11:27 1,000 UNIT Diagnostic Test (Pha) 1 strip ACHS 02/14/25 17:00 02/20/25 11:30 1 STRIP Insulin Human Regular HS SC 02/14/25 22:00 02/17/25 22:04 3 UNITS Insulin Human Regular AC SC 02/14/25 17:00 02/19/25 06:38 2 UNITS Dextrose 50 ml UD PRN IV 02/14/25 13:45 Albuterol 1.25 mg Q4HPRN PRN NEB 02/15/25 17:15 02/15/25 23:15 1.25 MG Ipratropium [place] 0.5 mg Q4HPRN PRN NEB 02/15/25 17:15 02/15/25 23:15 0.5 MG Lactulose 30 ml BIDPRN PRN PO 02/16/25 14:30 02/16/25 14:51 30 ML Sodium Chloride 1,000 ml @ 150 mls/hr Q6H40M IV 02/17/25 11:30 02/20/25 05:29 150 MLS/HR Laboratory Results Laboratory Tests 02/18/25 05:55 02/19/25 06:01 Urinalysis Test 02/18/25 17:15 Urine Color Light-yellow (Yellow) Urine Clarity Clear (Clear) Urine pH 6.0 (5.0-9.0) Urine Specific [place] 1.016 (1.001-1.035) Urine Protein Negative (Negative) Urine Ketones Negative (Negative) Urine Blood Negative /uL (Negative) Urine Nitrite Negative (Negative) Urine Bilirubin Negative (Negative) Urine Urobilinogen Normal mg/dL (Negative) Urine Leukocyte Esterase Negative /uL (Negative) Urine RBC <1 /hpf (0 - 3) Urine Microscopic WBC 1 /HPF (0-3) Urine Squamous Epithelial Cells Few /hpf (<5) Urine Bacteria None seen /hpf (None Seen) Urine Glucose Normal mg/dL (Normal) Microbiology Microbiology Date/Time Source Procedure Growth Status 02/14/25 07:35 Blood Blood Culture - Final NO GROWTH AFTER 5 DAYS OF INCUBATION. Complete Assessment/Plan Assessment/Plan -metabolic encephalopathy -hypercalcemia- Malignancy? - Hepatocellular Carcinoma -transaminitis with possible Liver Mass- MRI ABD -dyslipidemia -atrial fibrillation -recent cholecystectomy Plan discussed with: Patient, Spouse My Orders Orders - RAMON WEAVER MD Procedure Category Date Status Time Consistent DIET 02/20/25 [facility]Di[facility] Breakfast * [place] [employer] CONS 02/20/25 Transmitted Consult Date of Service: February 20, 2025 Billing Provider: RAMON WEAVER MD Common Visit Codes: [id number] INP/OBS CARE(HIGH) RAMON WEAVER MD February 20, 2025 17:33
--- NOTE | 2025-02-20 21:21 | DVHPN2 ---
Progress Note - Dictate Date Seen: February 20, 2025 Medical Necessity Reason Pt with a Central, PICC or Fol: No Subjective Patient appears to comprehend his clinical condition and is tearful He does want to go home and does not want any further treatment Bone scan did not show any evidence of bony metastases Brain MRI did not show any infarct or brain metastases His ammonia level is normal MRI exam done yesterday shows extensive hepatic masses and a small fluid collection in the gallbladder fossa possibly resolving hematoma [place] [id number]!! Hepatitis panel is negative ARIK is normal and mild persistent elevation liver enzymes vital signs Vital Sign Date Time Temp Pulse Resp B/P (MAP) Pulse Ox O2 Delivery O2 Flow Rate FiO2 02/20/25 17:00 97.5 74 14 132/66 (88) 95 97.5 02/20/25 10:30 Room Air 0.0 02/20/25 10:30 21 Total Intake and Output 02/19/25 02/19/25 02/20/25 15:00 23:00 07:00 Intake Total 1850 ml 50 ml Output Total 600 ml Balance 1850 ml -550 ml medications Current Medications Medications Dose Ordered Sig/[place] Route Start Time Stop Time Status Last Admin Dose Admin Sodium Chloride 10 ml Q8HR IV 02/14/25 14:00 02/20/25 17:40 10 ML Acetaminophen/ Hydrocodone Bitart 1 tab Q4HP PRN PO 02/14/25 09:00 Ondansetron HCl 4 mg Q4HP PRN IV 02/14/25 09:00 Docusate Sodium 100 mg BIDPRN PRN PO 02/14/25 09:00 02/16/25 12:01 100 MG Acetaminophen 650 mg Q6HP PRN PO 02/14/25 09:00 Apixaban 5 mg BID PO 02/14/25 10:00 02/18/25 11:03 5 MG Insulin Glargine 40 units DAILY SC 02/14/25 10:00 Montelukast Sodium 10 mg HS PO 02/14/25 22:00 02/15/25 20:57 10 MG Losartan Potassium 50 mg DAILY PO 02/14/25 10:00 02/20/25 11:32 50 MG Diltiazem HCl 180 mg Q8HR PO 02/14/25 14:00 Hold Levothyroxine Sodium 50 mcg QAM PO 02/15/25 07:00 02/20/25 05:23 50 MCG Patient Own Medication 400 unit DAILY PO 02/14/25 10:00 Cholecalciferol 1,000 unit DAILY PO 02/14/25 10:00 02/20/25 11:27 1,000 UNIT Diagnostic Test (Pha) 1 strip ACHS 02/14/25 17:00 02/20/25 11:30 1 STRIP Insulin Human Regular HS SC 02/14/25 22:00 02/17/25 22:04 3 UNITS Insulin Human Regular AC SC 02/14/25 17:00 02/19/25 06:38 2 UNITS Dextrose 50 ml UD PRN IV 02/14/25 13:45 Albuterol 1.25 mg Q4HPRN PRN NEB 02/15/25 17:15 02/15/25 23:15 1.25 MG Ipratropium [place] 0.5 mg Q4HPRN PRN NEB 02/15/25 17:15 02/15/25 23:15 0.5 MG Lactulose 30 ml BIDPRN PRN PO 02/16/25 14:30 02/16/25 14:51 30 ML Sodium Chloride 1,000 ml @ 150 mls/hr Q6H40M IV 02/17/25 11:30 02/20/25 17:44 150 MLS/HR objective General Appearance: Alert, Oriented X3, Cooperative, No acute distress HEENT: Atraumatic, PERRLA Lungs: Clear to auscultation Cardiovascular: Regular rate Extremities: No edema Skin: Dry, Intact Psych/Mental Status: confused sometimes agitated laboratory and microbiology Laboratory Tests 02/19/25 06:01 02/18/25 05:55 Test 02/19/25 06:01 Range/Units Serum Glucose 162 H 74-106 mg/dL Problems(with codes): (1) Elevated serum alpha-fetoprotein level (2) Liver masses (3) Abnormal finding on GI tract imaging (4) Elevated liver enzymes (5) Metabolic encephalopathy (6) Chronic liver disease (7) Generalized weakness Prognosis Plan Patient is suspected to have locally advanced hepatocellular carcinoma with multiple liver masses and a very high serum alpha fetoprotein Patient's does not want to proceed with a liver biopsy for her There is plan for discharge home with hospice tomorrow as long as she is able to get the DME equipment Prognosis remains guarded Dietary Evaluation Review Comments: 1) liberalized to NCS diet 2) Continue current POC Expected Outcomes/Goals: To meet >75% estimated needs Fu 3-5 days Plan discussed with: Patient, Spouse OCTAVIA POWERS MD February 20, 2025 21:21
[2025-02-21] VITALS (7 sets, daily range): BP systolic 129–154; BP diastolic 54–77; PULSE 68–91; RESP 16–20; TEMP 36.5; O2SAT 94–97
--- NOTE | 2025-02-21 12:55 | DVHDS2 ---
Discharge Summary Date of Admission February 14, 2025 at 08:58 Date of Discharge: February 21, 2025 Admitting Diagnosis Hepatocellular Carcinoma Labs/Diagnostic Data: Laboratory Results Test 02/21/25 11:59 02/19/25 06:01 02/18/25 17:15 02/18/25 05:55 POC Glucose 136 mg/dl (70-106) Prothrombin Time 12.3 sec (9.3-11.8) Prothrombin Time INR 1.18 (0.9-1.15) Activated Partial Thromboplast Time 27.5 SEC (24.5-34.5) Sodium Level 138 mmol/L (136-145) Potassium Level 4.2 mmol/L (3.5-5.1) Chloride Level 106 mmol/L (98-107) Carbon Dioxide Level 26 mmol/L (20-31) Anion Gap 6 (5-15) Blood Urea Nitrogen 13 mg/dL (9-23) Creatinine 0.84 mg/dL (0.700-1.30) Glomerular Filtration Rate Calc 85 mL/min (>90) BUN/Creatinine Ratio 15.5 (10.0-20.0) Serum Glucose 162 mg/dL (74-106) Calcium Level 12.0 mg/dL (8.7-10.4) Total Bilirubin 0.6 mg/dL (0.2-1.0) Aspartate Amino Transferase (AST) 119 U/L (13-40) Alanine Aminotransferase (ALT) 55 U/L (7-40) Alkaline Phosphatase 179 U/L (46-116) Total Protein 6.5 g/dL (5.7-8.2) Albumin 3.8 g/dL (3.2-4.8) Urine Color Light-yellow (Yellow) Urine Clarity Clear (Clear) Urine pH 6.0 (5.0-9.0) Urine Specific [place] 1.016 (1.001-1.035) Urine Protein Negative (Negative) Urine Ketones Negative (Negative) Urine Blood Negative /uL (Negative) Urine Nitrite Negative (Negative) Urine Bilirubin Negative (Negative) Urine Urobilinogen Normal mg/dL (Negative) Urine Leukocyte Esterase Negative /uL (Negative) Urine RBC <1 /hpf (0 - 3) Urine Microscopic WBC 1 /HPF (0-3) Urine Squamous Epithelial Cells Few /hpf (<5) Urine Bacteria None seen /hpf (None Seen) Urine Glucose Normal mg/dL (Normal) White Blood Count 6.6 10^3/uL (4.4-10.8) Red Blood Count 4.99 10^6/uL (4.5-5.90) Hemoglobin 14.3 g/dL (13.5-17.5) Hematocrit 42.5 % (41.0-53.0) Mean Corpuscular Volume 85.3 fL (80.0-100.0) Mean Corpuscular Hemoglobin 28.7 pg (28.0-32.0) Mean Corpuscular Hemoglobin Concent 33.7 g/dL (32.0-36.0) Red Cell Distribution Width 15.4 % (11.8-14.3) Platelet Count 182 10^3/uL (140-450) Mean Platelet Volume 8.5 fL (6.9-10.8) Neutrophils (%) (Auto) 80.3 % (37.0-80.0) Lymphocytes (%) (Auto) 10.7 % (10.0-50.0) Monocytes (%) (Auto) 6.0 % (0.0-12.0) Eosinophils (%) (Auto) 1.8 % (0.0-7.0) Basophils (%) (Auto) 1.2 % (0.0-2.0) Neutrophils # (Auto) 5.3 10 ^3/uL (1.6-8.6) Lymphocytes # (Auto) 0.7 10 ^3/uL (0.4-5.4) Monocytes # (Auto) 0.4 10 ^3/uL (0-1.3) Eosinophils # (Auto) 0.1 10 ^3/uL (0-0.8) Basophils # (Auto) 0.1 10 ^3/uL (0-0.2) Nucleated Red Blood Cells 0.1 % Ferritin 15.9 ng/mL (22-322) Lactate Dehydrogenase 192 U/L (120-246) Tumor Marker Alpha Fetoprotein 25025.0 ng/mL (0.0-6.4) Carcinoembryonic Antigen < 0.50 ng/mL (<=5.0) CA 19-9 Antigen 14 U/mL (0-35) Vitamin B12 Level 1043 pg/mL (211-911) Folic Acid 28.54 ng/mL (>5.38) Anti-Nuclear Antibody Screen Negative (Negative) Test 02/17/25 08:33 02/15/25 05:36 02/14/25 09:30 02/14/25 07:35 Hepatitis A IgM Antibody Negative Hepatitis B Surface Antigen Negative (Negative) Hepatitis B Core IgM Antibody Negative (Negative) Hepatitis C Antibody Negative (Negative) Erythrocyte Sedimentation Rate 8 mm/hr (0-20) Parathyroid Hormone (Intact) 6.0 pg/mL (18.4-80.1) Ammonia < 10 umol/L (11-32) Troponin I High Sensitivity 4 ng/L (</=54) Test 02/14/25 06:50 Lactic Acid Level 1.1 mmol/L (0.4-2.0) B-Type Natriuretic Peptide 63.30 pg/mL (0-100) Other Laboratory Tests 02/19/25 06:01 02/18/25 05:55 Brief Hx & Hospital Course: Guan[place] Andrew is an 85-year-old male with past medical history of hypertension, diabetes, hyperlipidemia, hypothyroidism, and atrial fibrillation who was brought in due to confusion. Patient's states he has been forgetting how to do simple tasks at home. She took him to the doctor and they recommended he go to the hospital to have labs and testing completed. On assessment the patient could tell me his name and date of and that he was in a hospital But his memory is poor and there was concern for dementia Of note the patient's labs were abnormal with a very high calcium of 13.7. There was also concern for a possible liver mass and elevated liver enzymes and GI consult was requested for the same. Underwent MRI ABD/PELVIS which showed liver masses. Patient and spouse refused Liver biopsy, wish to be discharged home with hospice. Operations or Procedures Procedure: MRI MRI ABDOMEN W AND WO 02/18/2025 03:26 PM Indication: Liver Protocol Comparison Study: Ultrasound dated 02/16/2025, MRCP dated 12/02/2024, ultrasound dated 11/29/2024, CT scan dated 11/29/2024 Technique: Multi planar, multi phasic abdominal MRI was performed prior awful administration of IV contrast FINDINGS: Lower Chest: Right basilar pulmonary opacities likely atelectasis. Hepatobiliary: There is interval development of numerous hepatic masses with the largest occupying segments IV and V measuring 13 cm in AP, 6.2 cm in the transverse 10 cm in craniocaudal. The remainder of the lesions are smaller measuring up to 3.3 cm. The lesions are hypoenhancing and do not show arterial enhancement. Liver contour is slightly irregular. Trace perihepatic ascites noted. There is interval removal of gallbladder a nonenhancing 4.7 x 1.5 cm T1 hyperintense and T2 hypointense structure noted in the gallbladder fossa likely postsurgical hematoma. The common bile duct is normal in caliber measuring 0.3 cm. No intrahepatic ductal dilatation noted Spleen: Moderately enlarged, 16.4 cm in craniocaudal. Pancreas: Unremarkable. Adrenal Glands: Unremarkable. tract: The kidneys are normal in size bilaterally without hydronephrosis or nephrolithiasis. Multiple simple appearing bilateral renal cysts are seen measuring up to 5 cm. Several subcentimeter proteinaceous cysts are noted bilaterally. A mildly complicated 2.3 x 1.7 cm septated cyst noted in the lateral cortex midpole of the left kidney. GI tract: The stomach is grossly normal in appearance. No evidence of small bowel obstruction. Scattered colonic diverticula are noted without evidence of diverticulitis. Lymphatics: Interval development of significant periportal lymphadenopathy with lymph nodes measuring up to 3.6 x 3.3 cm. The largest lymph node is between the descending part of the duodenum the CBD. Vasculature: The abdominal aorta is normal in caliber. Bones/soft tissues: No acute abnormality. Other: None. IMPRESSION: 1. Compared to prior exams, there is interval development of numerous hepatic masses measuring up to 13 cm multiple periportal and pancreaticoduodenal lymphadenopathy measuring up to 3.6 cm. The findings are compatible metastatic lymphadenopathy from an uncertain source. Correlate with pathology report to rule out Gallbladder carcinoma. No discrete colonic lesion is identified in this exam on prior studies. Further evaluation with colonoscopy may be helpful. Consider further evaluation ultrasound-guided hepatic biopsy. 2. Interval cholecystectomy with a 4.7 cm hemorrhagic collection in gallbladder fossa likely postsurgical hematoma. 3. Stable splenomegaly. 4. Diffuse colonic diverticulosis. 5. Several simple appearing, Bosniak category 1 bilateral renal cysts measuring up to 5 cm and a 2.3 cm complex left renal cyst that should be followed by ultrasound in 6-12 months. Condition at Discharge: Poor Final Diagnosis/Problems List Hepatocellular Carcinoma Dementia Discharge Disposition: Hospice - Home Discharge Instruct/Medications Diet: Regular Activity: Light activity Follow Up/Referral: Per Hospice MD Medications: Per Hospice MD Discharge Statement: "Patient was advised to return to the ER or call 911 if any headaches, dizziness, shortness of breath, chest pain, abdominal pain, bleeding, fevers, or worsening of medical condition. Patient was counseled about treatment plan, medications, possible side effects, patientverbalized understanding. All questions were answered to the best of my ability. This discharge took greater then 30 minutes in planning, reviewing documentation, counseling the patient, and discussing with other team members." ASSESSMENT ASSESSMENT Assessment Date of Service: February 21, 2025 Billing Provider: RAMON WEAVER MD Common Visit Codes: 11230-YIK/OBS DISCH DAY >30min RAMON WEAVER MD February 21, 2025 12:55
== END 2025-02-21 16:50 | disposition hospice, home (50) | DRG 435 ==
LOC: ER 06:24 → OVERFLOW 08:58 → ER 09:05 → WEST WING 10:16
PROVIDERS: ADMIT Internal Medicine; ATTEND Internal Medicine
DX: C22.0 Liver cell carcinoma (principal); G93.41 Metabolic encephalopathy; E83.52 Hypercalcemia; I48.91 Unspecified atrial fibrillation; J45.909 Unspecified asthma, uncomplicated; E78.5 Hyperlipidemia, unspecified; I10 Essential (primary) hypertension; E03.9 Hypothyroidism, unspecified; E11.65 Type 2 diabetes mellitus with hyperglycemia; G90.89 Other disorders of autonomic nervous system; Z90.49 Acquired absence of other specified parts of digestive tract; Z86.73 Personal history of transient ischemic attack (TIA), and cerebral infarction without residual deficits; Z82.0 Family history of epilepsy and other diseases of the nervous system; Z91.013 Allergy to seafood; Z79.4 Long term (current) use of insulin; Z79.899 Other long term (current) drug therapy; Z79.84 Long term (current) use of oral hypoglycemic drugs; Z79.2 Long term (current) use of antibiotics; Z81.8 Family history of other mental and behavioral disorders
CPT/HCPCS: 36415; 70450; 70553; 71045; 74183; 76705; 78306; 80053; 80074; 81001; 82105; 82140; 82378; 82607; 82728; 82746; 82962; 83605; 83615; 83880; 83970; 84484; 85025; 85610; 85652; 85730; 86038; 86301; 87040; 94640; 96361; 96374; 97110; 97116; 97163; 97530; 99291; G0378; J1815